=== PATIENT | female | born 1955 | race Caucasian/White ===

== ENCOUNTER 2016-08-11 14:46 | Emergency (ER) | payer MEDICARE, OTHER ==
[2016-08-11] MEDS ORDERED: KETOROLAC 60 MG/2 ML VIAL IM STA (15:38)
[2016-08-11] MEDS ORDERED: KETOROLAC 60 MG/2 ML VIAL ONE (15:46)
== END 2016-08-11 17:39 | disposition home or self-care (01) ==
DX: S29.011A Strain of muscle and tendon of front wall of thorax, initial encounter (principal); X50.0XXA Overexertion from strenuous movement or load, initial encounter; Y93.E6 Activity, residential relocation; Y99.8 Other external cause status; R03.0 Elevated blood-pressure reading, without diagnosis of hypertension; J44.9 Chronic obstructive pulmonary disease, unspecified; F17.200 Nicotine dependence, unspecified, uncomplicated

== ENCOUNTER 2016-09-11 09:15 | Outpatient (CLI) | payer MEDICARE, OTHER | END 2016-09-11 09:16 | disposition home or self-care (01) | DX: G47.33 Obstructive sleep apnea (adult) (pediatric) (principal) | CPT/HCPCS: 99214; G0463 ==

== ENCOUNTER 2017-06-16 16:45 | Observation (INO) | payer MEDICARE, OTHER ==
[2017-06-16] MEDS ORDERED: NITROGLYCERIN SL 0.4 MG TABLET SL STA ×2 (17:00→17:44)
[2017-06-16] MEDS ORDERED: ASPIRIN CHEW 81 MG TABLET PO STA (17:00)
--- NOTE | 2017-06-16 17:02 | ED Physician Documentation ---
PD HPI CHEST PAIN - Stated complaint Stated Complaint: CP - Chief complaint Chief Complaint: General - History obtained from History obtained from: Patient - History of Present Illness Timing - onset: Other (61-year-old woman with history of TIA and tobacco abuse developed substernal chest pressure at rest radiating to both arms about 45 minutes ago associated with diaphoresis and shortness of breath but no nausea. Pain does not radiate to the back.) Review of Systems Constitutional: denies: Fever, Chills Cardiac: reports: Chest pain / pressure. denies: Palpitations, Pedal edema, Calf pain Respiratory: reports: Dyspnea. 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 HEENT: Tonsil/Adenoidectomy - Present Medications Home Medications: Ambulatory Orders Medication Instructions Recorded Confirmed Albuterol Sulfate [Proair 90 mcg IH Q4HR PRN #1 [email or web address] 03/27/16 Respiclick] Ibuprofen 600 mg PO 06/16/17 - Allergies Allergies/Adverse Reactions: Allergies Allergy/AdvReac Type Severity Reaction Status Date / Time acetaminophen [From Vicodin] Allergy Severe Rash Verified 08/11/16 14:50 hydrocodone bitartrate * Allergy Severe Rash Verified 08/11/16 14:50 [From Vicodin] iodine Allergy Severe Nausea Verified 08/11/16 14:50 Penicillins Allergy Severe Respiratory Verified 08/11/16 14:50 Sulfa (Sulfonamide Allergy Severe Respiratory Verified 08/11/16 14:50 Antibiotics) - Social History Does the pt smoke?: Yes Smoking Status: Current every day smoker Does the pt drink ETOH?: No Does the pt have substance abuse?: No - Family History Family history: reports: Non contributory - Immunizations Immunizations are current?: Yes - POLST Patient has POLST: No PD ED PE NORMAL - Vitals Vital signs reviewed: Yes - General General: Alert and oriented X 3, No acute distress - HEENT HEENT: PERRL, EOMI - Neck Neck: Supple, no meningeal sign, No bony TTP - Cardiac Cardiac: RRR, No murmur - Respiratory Respiratory: No respiratory distress, Clear bilaterally - Abdomen Abdomen: Soft, Non tender - Back Back: No CVA TTP, No spinal TTP - Derm Derm: Normal color, Warm and dry - Extremities Extremities: No edema, No calf tenderness / cord - Neuro Neuro: Alert and oriented X 3, Normal speech - Psych Psych: Normal mood, Normal affect Results - Vitals Vitals: Vital Signs - 24 hr 06/16/17 06/16/17 16:57 17:12 Heart Rate 83 88 Respiratory 14 18 Rate Blood Pressure 139/73 H 135/94 H O2 Saturation 93 93 Oxygen O2 Source Room air - EKG (time done) 1657 Rate: Rate (enter#) (82) Rhythm: NSR Malott: Normal Intervals: Normal HI QRS: Normal Ischemia: Non specific changes Computer interpretation: Agree with computer - Labs Labs: Laboratory Tests 06/16/17 06/16/17 06/16/17 17:00 17:00 17:00 WBC 8.7 RBC 5.00 Hgb 15.1 Hct 44.8 MCV 89.6 MCH 30.1 MCHC 33.6 RDW 13.7 Plt Count 447 MPV 8.0 Neut # 4.9 Lymph # 2.7 Cherry # 0.9 Eos # 0.2 Baso # 0.1 Absolute Nucleated RBC 0.00 Nucleated RBC % 0.0 Sodium 139 Potassium 3.5 Chloride 108 Carbon Dioxide 24 Anion Gap 7.0 BUN 15 Creatinine 0.6 Estimated GFR (MDRD) 102 Glucose 100 Calcium 9.3 Total Bilirubin 0.5 AST 20 ALT 24 Alkaline Phosphatase 115 Total Creatine Kinase 63 CK-MB (CK-2) 1.3 Troponin I 0.04 Total Protein 7.4 Albumin 4.2 Globulin 3.2 Albumin/Globulin Ratio 1.3 Lipase 26 PD MEDICAL DECISION MAKING - ED course ED course: 61-year-old woman with risk factors for coronary disease including age, tobacco abuse presents with typical chest pain of short duration but no ischemic EKG changes, initial biomarkers negative. Call to the hospitalist for observation and formal rule out at 5:41 PM. She received aspirin and nitroglycerin in the emergency department. Departure - Departure Disposition: ED Place in Observation Clinical Impression: Chest pain Qualifiers: Chest pain type: unspecified Qualified Code(s): R07.9 - Chest pain, unspecified Condition: Stable
[2017-06-16] MEDS ORDERED: ASPIRIN CHEW 81 MG TABLET ONE (17:09)
[2017-06-16 17:17] LABS: BASOPHILS # (AUTO) 0.1 10^3/uL (0.0-0.1); EOSINOPHILS # (AUTO) 0.2 10^3/uL (0.0-0.7); EOSINOPHILS % (AUTO) 1.7 %; HCT - HEMATOCRIT 44.8 % (37.0-47.0); HGB - HEMOGLOBIN 15.1 g/dL (12.0-16.0); LYMPHOCYTES # (AUTO) 2.7 10^3/uL (1.5-3.5); LYMPHOCYTES % (AUTO) 31.2 %; MEAN CORPUSCULAR HEMOGLOBIN 30.1 pg (27.0-31.0); MEAN CORPUSCULAR HGB CONC 33.6 g/dL (32.0-36.0); MEAN CORPUSCULAR VOLUME 89.6 fL (81.0-99.0); MONOCYTES # (AUTO) 0.9 10^3/uL (0.0-1.0); MONOCYTES % (AUTO) 9.9 %; NEUTROPHILS # (AUTO) 4.9 10^3/uL (1.5-6.6); NEUTROPHILS % (AUTO) 56.2 %; RED CELL DISTRIBUTION WIDTH 13.7 % (12.0-15.0); UNCORRECTED WHITE BLOOD COUNT 8.7 x10^3/uL; WHITE BLOOD COUNT 8.7 x10^3/uL (4.8-10.8)
[2017-06-16 17:28] LABS: ALBUMIN/GLOBULIN RATIO 1.3 (1.0-2.2); BILIRUBIN,TOTAL 0.5 mg/dL (0.2-1.0); CALCIUM 9.3 mg/dL (8.5-10.3); CREATININE 0.6 mg/dL (0.4-1.0); POTASSIUM 3.5 mmol/L (3.5-5.0); TOTAL PROTEIN 7.4 g/dL (6.7-8.2)
[2017-06-16 17:35] LABS: TROPONIN I 0.04 ng/mL (<0.49)
[2017-06-16 17:37] LABS: CREATINE KINASE MB 1.3 ng/mL (0.6-6.3)
[2017-06-16] MEDS ORDERED: ACETAMINOPHEN 325 MG TABLET PO STA (17:44)
[2017-06-16] MEDS ORDERED: SODIUM CHLORIDE FLUSH 0.9% 10 ML SYRINGE IVP PRN (17:47)
[2017-06-16] MEDS ORDERED: ONDANSETRON ODT 4 MG TABLET TL PRN (17:47)
[2017-06-16] MEDS ORDERED: ONDANSETRON 4 MG/2 ML VIAL IVP PRN (17:47)
[2017-06-16] MEDS ORDERED: ACETAMINOPHEN 325 MG TABLET PO PRN (17:47)
--- NOTE | 2017-06-16 17:49 | XRAY Preliminary Report ---
Exam: XR CHEST 1 VIEW IMPRESSION: No acute disease. [facility]IA SITE ID: [id number]
--- NOTE | 2017-06-16 17:52 | XRAY Report ---
EXAM: CHEST RADIOGRAPHY EXAM DATE: 06/16/2017 05:27 PM. CLINICAL HISTORY: Chest pain. COMPARISON: 08/11/2016. TECHNIQUE: 1 view. FINDINGS: Lungs/Pleura: No localized infiltrate, consolidation, effusion, or pneumothorax. Mediastinum: Within exam limitations, the cardiomediastinal contour is normal. Upper lobe vessels not distended. Other: Osteopenia. Degenerative changes. IMPRESSION: No acute disease. [facility] Referring Provider Line: [phone] SITE ID: [id number]
[2017-06-16] MEDS ORDERED: NITROGLYCERIN SL 0.4 MG TABLET SL PRN (17:53)
[2017-06-16] MEDS ORDERED: ALBUTEROL NEB 2.5 MG/3 ML INH STA (17:55)
[2017-06-16] MEDS ORDERED: ACETAMINOPHEN 325 MG TABLET PO ONE (17:58)
[2017-06-16] MEDS ORDERED: ALBUTEROL NEB 2.5 MG/3 ML INH PRN (18:47)
--- NOTE | 2017-06-16 18:54 | HISTORY & PHYSICAL EXAMINATION ---
Chief Complaint - Chief Complaint Chief Complaint: chest pain Chest Pain Admission HPI - Admitted From Admitted from: ED - History Obtained From Records Reviewed: RN notes reviewed, Old records reviewed History obtained from: Patient Exam limitations: No limitations - History of Present Illness Pain/Problem Location Description: chest pain mid-sternal w/radiation to right arm, then left arm. Severity at the worst: reports: Severe Pain Quality: reports: Sharp, Crushing Context-Pain started w/: reports: Inspiration, Other (no provoking factors, riding in the car.) Timing: reports: Abrupt onset Duration: reports: Minutes: (60) Improved with: reports: Nothing Worsened by: reports: Inspiration Associated symptoms: reports: Shortness of air, Diaphoresis, Cough HPI Comment/Other: Evelia Kaye is a 61-year old with a PMX of hypothyroidism, osteoarthritis, GERD , TIA, COPD, CLEMENTE tobacco abuse, chronic sinusitis, and anxiety who was at an appointment with ex- today in [place] and was riding as a passenger in the car when she was suddenly overcome by chest pain in her mid-sternum as if "an elephant was sitting on her chest". The pain soon radiated to her right arm, then left arm and associated symptoms of diaphoresis and SOB, cough. The pain persisted until arriving in our ED. Upon arrival she was given NTG, ASA, EKG and troponin, which have been negative so far. She will be admitted for observation of rule out CA. 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: Hysterectomy Neuro: positive: Other (back abscess in 1998, mid-spinal) HEENT: positive: Tonsil/Adenoidectomy Social & Family Hx - Social History Does the pt smoke?: Yes Smoking Status: Heavy tobacco smoker (reports 4 (four) ppd until 2003, now smokes only a few per day.) Does the pt drink ETOH?: No Does the pt have substance abuse?: No - POLST Patient has POLST: No POLST Status: Full Code - Family History Family History: Mother: Alive and Well, Mental Illness, Father: , CVA/ TIA, Sister: Alive and Well, Diabetes, Type 2 Meds/Allgy - Home Medications Home Medications: Ambulatory Orders Medication Instructions Recorded Confirmed Albuterol Sulfate [Proair 90 mcg IH Q4HR PRN #1 [email or web address] 03/27/16 Respiclick] Ibuprofen 800 mg PO 06/16/17 - Allergies Allergies/Adverse Reactions: Allergies Allergy/AdvReac Type Severity Reaction Status Date / Time hydrocodone bitartrate * Allergy Severe Rash Verified 08/11/16 14:50 [From Vicodin] iodine Allergy Severe Nausea Verified 08/11/16 14:50 Penicillins Allergy Severe Respiratory Verified 08/11/16 14:50 Sulfa (Sulfonamide Allergy Severe Respiratory Verified 08/11/16 14:50 Antibiotics) Review of Systems - Constitutional Constitutional: reports: Diaphoresis - Ears, Nose & Throat Ears, Nose & Throat: reports: Hearing loss (left-chronic) - Respiratory Respiratory: reports: Cough, SOB with exertion - Gastrointestinal Gastrointestinal: reports: Reflux/heartburn - Genitourinary Genitourinary: reports: Dysuria - Musculoskeletal Musculoskeletal: reports: Back pain, Muscle aches - Neurological Neurological: reports: Headache - Psychiatric Psychiatric: reports: Anxiety - Endocrine Endocrine: reports: Polydypsia, Intolerance to heat - All Other Systems All Other Systems: reports: Reviewed and negative Exam - Vital Signs Reviewed Vital Signs: Yes Vital Signs: Vital Signs x48h Temp Pulse Pulse Resp BP BP Pulse Ox 06/16/17 18:42 36.5 C 71 20 121/76 96 06/16/17 17:54 84 20 129/63 94 - Physical Exam General Appearance: positive: No acute distress, Alert Eyes Bilateral: positive: Normal inspection, PERRL ENT: positive: ENT inspection nml, Pharynx nml, No signs of dehydration Neck: positive: Nml inspection, Thyroid nml, No JVD, Trachea midline Respiratory: positive: Chest non-tender, No respiratory distress, Breath sounds nml Cardiovascular: positive: Regular rate & rhythm, No murmur, No gallop Peripheral Pulses: positive: 2+ Abdomen: positive: Non-tender, Nml bowel sounds, Hepatomegaly Back: positive: Nml inspection Skin: positive: Color nml, No rash, Warm, Dry Extremities: positive: Non-tender, Full ROM, Nml appearance, No pedal edema Neurologic/Psychiatric: positive: Oriented x3, CN's nml (2-12), Motor nml, Sensation nml, Mood/affect nml Reflexes: Bicep (R): 4+, Bicep (L): 4+ Results - Lab Results Lab results reviewed: Yes Fish Bones: 06/16/17 17:00 06/16/17 17:00 - Diagnostic Imaging Results Diagnostic Imaging Results: positive: Prelim report reviewed Diagnostic Imaging Results Comments: Chest x-ray: no acute disease. - EKG Results EKG Interpreted Independently: Yes ARRA - Anticipated LOS Anticipated Stay Length: Less than 2 midnights - AMI - Statin at Admit Aspirin Prescribed on Admit: Yes - Stroke - Rehab Assessment Rehab services assessment to be ordered?: No Not Ordered - Medical Reason: Contraindicated - DVT/VTE - Prophylaxis VTE/DVT Device ordered at admit?: Yes VTE/DVT Prophylaxis med ordered at admit?: No Not Ordered - Medical Reason: Not indicated CP/CHF Plan - Echo Plan to order an echo?: Yes - Plan Patient Problems: All Active Problems Chest pain (Acute) Chest wall muscle strain (Acute) Hypoxia (Acute) Sprain of ankle (Acute) Plan: Chest pain (R07.9)- Her last cardiac cath was greater than 10 year ago and at that time, no conclusion was made as to the cause of her chest pain. Plan: Echocardiogram in AM, serial troponins, telemetry monitoring. and further labs. Stress test is pending based on patient compliance since she states she does not want any imaging unless it is an emergencey. History of TIA (transient ischemic attack) (Z86.73)- This is stable. She used to have right sided weakness, but this has resolved with no known residuals. Plan: continue to monitor and encourage statin use. COPD (chronic obstructive pulmonary disease) (J44.9)- Presumed due to long-term tobacco abuse. Plan: continue albuterol nebs as indicated. Monitor VS. CLEMENTE (obstructive sleep apnea) (G47.33)-Patient states that she is compliant with CPAP device at home. Plan: she did not bring her CPAP to the hospital, so we will monitor VS. DVT prophylaxis: SCDs, no further interventions indicated.
[2017-06-16] MEDS ORDERED: GI COCKTAIL 120 ML BOTTLE PO SCH (21:00)
[2017-06-16] MEDS: SODIUM CHLORIDE FLUSH 0.9% 10 ML SYRINGE IVP SCH (22:26)
[2017-06-17] MEDS: SODIUM CHLORIDE FLUSH 0.9% 10 ML SYRINGE IVP SCH ×2 (05:57→14:45)
[2017-06-17] MEDS ORDERED: NICOTINE 14 MG PATCH TOP SCH (08:00)
[2017-06-17] MEDS ORDERED: ASPIRIN EC 81 MG TABLET PO SCH (09:00)
[2017-06-17] MEDS ORDERED: POLYETHYLENE GLYCOL 3350 17 GM PACKET PO SCH (09:00)
[2017-06-17] MEDS ORDERED: REGADENOSON 0.4 MG/5 ML SYRINGE IVP ONE (11:53)
[2017-06-17 16:02] VITALS: BP 142/87
--- NOTE | 2017-06-17 16:31 | Nuclear Medicine Prelim Report ---
Exam: NM MYOCARDIAL PERFUSION STR/RST IMPRESSION: 1. Small reversible distal inferolateral wall perfusion defect. No other convincing fixed or reversib le perfusion defects. 2. Left ventricular ejection fraction of 66%. 3. Normal segmental and global wall motion. 4. Normal left ventricular cavity size, no change with stress. [facility] The call report notification system was initiated by Dr. Jorge Adhikari at 15:56 hrs on 06/17/17. The above findings were discussed with Dr. Doran by Dr. Jorge Adhikari at 16:29 hrs on 06/17/17. SITE ID: [id number]
--- NOTE | 2017-06-17 16:34 | Nuclear Medicine Report ---
EXAM: SINGLE-ISOTOPE PHARMACOLOGICAL STRESS TEST WITH REGADENOSON. SINGLE-ISOTOPE AND one-DAY REST/STRESS M YOCARDIAL PERFUSION SCANS WITH TOMOGRAPHIC IMAGING, QUANTITATIVE ANALYSIS, WALL MOTION ANALYSIS AND C ALCULATION OF EJECTION FRACTION. EXAM DATE: 06/17/2017 02:44 PM. CLINICAL HISTORY: Chest pain radiating to the right arm. COMPARISON: None. TECHNIQUE: After the intravenous administration of 8.7 mCi of Tc-99m sestamibi, a rest myocardial perfusion scan was done with tomography. Motion correction was applied when appropriate. A pharmacological stress was performed with the infusion of 0.4 mg regadenoson per protocol. Accordin g to protocol, 33.6 mCi of Tc-99m sestamibi was injected for stress myocardial perfusion scan. Motion correction was applied when appropriate. Gated tomographic images were obtained for wall motion analysis and computation of left ventricular e jection fraction. FINDINGS: There is a small, moderate severity reversible perfusion defect in the distal inferolateral wall. No other convincing fixed or reversible perfusion defects. Wall motion analysis demonstrates no focal wall motion abnormality The left ventricular end-diastolic volume is 84 cc. The left ventricular end-systolic volume is 29 cc . The left ventricular ejection fraction is calculated to be 66%. IMPRESSION: 1. Small reversible distal inferolateral wall perfusion defect. No other convincing fixed or reversib le perfusion defects. 2. Left ventricular ejection fraction of 66%. 3. Normal segmental and global wall motion. 4. Normal left ventricular cavity size, no change with stress. RAD[facility] The call report notification system was initiated by Dr. Jorge Adhikari at 15:56 hrs on 06/17/17. The above findings were discussed with Dr. Doran by Dr. Jorge Adhikari at 16:29 hrs on 06/17/17. Referring Provider Line: [phone] SITE ID: [id number]
--- NOTE | 2017-06-17 17:08 | Discharge Plan ---
Discharge Plan Disposition: Home, Self Care Condition: Good Prescriptions: Nitroglycerin [Nitrostat] 0.4 mg SL Q5MIN PRN #1 tablet PRN Reason: Chest Pain Aspirin EC [Ecotrin] 325 mg PO DAILY #30 tablet Nicotine 14 mg Patch [Nicoderm] 1 patch TOP DAILY #30 patch Simvastatin 20 mg PO DAILY #30 tablet Diet: Regular Activity Restrictions: No Restrictions Shower Restrictions: No Driving Restrictions: No Weight Bearing: Full Weight Additional Instructions or Follow Up instructions: You were admitted to observe for acute chest pain that radiated to your right arm and then your left arm. Please see PCP by Thursday and the latest Thursday as a follow up to this observation hospital stay. You should see a reservoir engineer in the next few days depending on PCP referral process. Take your newly prescribed nitroglycerin SL tablets for any chest pain. Return to ED if you experience chest pain that is not relieved by nitroglycerin x3. Stop smoking if allowable, use nicotine patch for extra help. Start taking a daily aspirin 325mg and a lipid reducing medication to lessen your chances of further blockage of vessels. It was great working with you! No Smoking: If you smoke, Please STOP! Call for help. Follow-up with: Miguel Angel Rdoriguez MD [Primary Care Provider] -
--- NOTE | 2017-06-17 17:18 | DISCHARGE SUMMARY ---
Discharge Summary Admit Date: 06/16/17 Discharge Date: 06/17/17 Discharging Provider: BURKE Villanueva Primary Care Provider: Miguel Angel Rodriguez Code Status: Attempt Resuscitation Condition at Discharge: Good Discharge Disposition: 01 Home, Self Care - DIAGNOSES Admission Diagnoses: Chest pain, unspecified (R07.9) Personal history of TIA, and cerebral infarction without residual deficits ( Z86.73) Chronic obstructive pulmonary disease, unspecified (J44.9) Obstructive sleep apnea (adult) (pediatric) (G47.33) Discharge Diagnoses with Status of Each Condition: Chest pain (R07.9)- Her last cardiac cath was greater than 10 years ago and at that time, no conclusion was made as to the cause of her chest pain. Echocardiogram was completed and showed no wall motion abnormalities and an EF of 60-65%. Telemetry monitoring-without ectopy, rate or rhythm problems Stress test showed a small reversible distal inferolateral wall perfusion defect , so a (+) test. Troponins remained negative ranging from 0.04-0.08. A TSH was obtained and was normal at 5.32, all other labs grossly normal with not one value being abnormal. Plan: See PCP on Thursday06/22/17 to get a referral to cardiology for further intervention. Patient likely needs a cardiac cath. Nitroglycerin SL prescribed in the mean time. Patient was not hypertensive or tachycardic while here, so did not prescribe anything additional. Suggest ASA and statin for further prevention. History of TIA (transient ischemic attack) (Z86.73)- This is stable. She used to have right sided weakness, but this has resolved with no known residuals. Plan: continue to monitor and encourage statin use, although patient states she will not take any medications. COPD (chronic obstructive pulmonary disease) (J44.9)- Presumed due to long-term tobacco abuse. A chest x-ray was completed on admission and showed no acute disease. Clear lungs on exam. Plan: continue albuterol nebs as indicated. Monitor VS. Encourage cessation. CLEMENTE (obstructive sleep apnea) (G47.33)-Patient states that she is compliant with CPAP device at home. Plan: she did not bring her CPAP to the hospital, so we will monitor VS. DVT prophylaxis: SCDs, no further interventions indicated. - HPI History of Present Illness: Evelia Kaye is a 61-year old with a PMX of hypothyroidism, osteoarthritis, GERD , TIA, COPD, CLEMENTE tobacco abuse, chronic sinusitis, and anxiety who was at an appointment with ex- today in [place] and was riding as a passenger in the car when she was suddenly overcome by chest pain in her mid-sternum as if "an elephant was sitting on her chest". The pain soon radiated to her right arm, then left arm and associated symptoms of diaphoresis and SOB, cough. The pain persisted until arriving in our ED. Upon arrival she was given NTG, ASA, EKG and troponin, which have been negative so far. She will be admitted for observation of rule out AL. - HOSPITAL COURSE Hospital Course: Patient came to the ED after having acute onset mid-sternal chest pain that radiated to her right arm, then left arm. She had no provoking activities prior to then. Once in the ED, she had a (-) troponin, normal EKG, and relief of chest pain with nitroglycerin. A full cardiac work up was completed and patient under went a cardiac stress test with imaging that showed a small reversible distal interolateral wall perfusion defect. She was kept in observation over night and discharged via private car home with follow up guidelines that include prompt referral to Cardiology since she will likely need a cardiac cath. - ALLERGIES Allergies/Adverse Reactions: Allergies Allergy/AdvReac Type Severity Reaction Status Date / Time hydrocodone bitartrate * Allergy Severe Rash Verified 08/11/16 14:50 [From Vicodin] iodine Allergy Severe Nausea Verified 08/11/16 14:50 Penicillins Allergy Severe Respiratory Verified 08/11/16 14:50 Sulfa (Sulfonamide Allergy Severe Respiratory Verified 08/11/16 14:50 Antibiotics) - MEDICATIONS Home Medications: Ambulatory Orders Medication Instructions Recorded Confirmed Ibuprofen 800 mg PO Q6H PRN 06/16/17 06/17/17 Aspirin EC [Ecotrin] 325 mg PO DAILY #30 tablet 06/17/17 Nicotine 14 mg Patch [Nicoderm] 1 patch TOP DAILY #30 patch 06/17/17 Nitroglycerin [Nitrostat] 0.4 mg SL Q5MIN PRN #1 tablet 06/17/17 Simvastatin 20 mg PO DAILY #30 tablet 06/17/17 - PHYSICAL EXAM AT DISCHARGE General Appearance: positive: No acute distress, Alert Eyes Bilateral: positive: Normal inspection, PERRL ENT: positive: ENT inspection nml, Pharynx nml, No signs of dehydration Neck: positive: Nml inspection, Thyroid nml, No JVD, Trachea midline Respiratory: positive: Chest non-tender, No respiratory distress, Breath sounds nml Cardiovascular: positive: Regular rate & rhythm, No murmur, No gallop Peripheral Pulses: positive: 2+ Abdomen: positive: Non-tender, No organomegaly, Nml bowel sounds Back: positive: Nml inspection Skin: positive: Color nml, No rash, Warm, Dry Extremities: positive: Non-tender, Full ROM, Nml appearance, No pedal edema Neurologic/Psychiatric: positive: Oriented x3, CN's nml (2-12), Motor nml, Sensation nml, Mood/affect nml Reflexes: Bicep (R): 4+, Bicep (L): 4+ - LABS Result Diagrams: 06/16/17 17:00 06/16/17 17:00 - DIAGNOSTIC IMAGING Diagnostic Imaging Results: Final report reviewed Diagnostic Imaging Results Comments: Myocardial perfusiion STRESS test with imaging 06/17/17: IMPRESSION: 1. Small reversible distal inferolateral wall perfusion defect. No other convincing fixed or reversible perfusion defects. 2. Left ventricular ejection fraction of 66%. 3. Normal segmental and global wall motion. 4. Normal left ventricular cavity size, no change with stress. A chest x-ray on admission 06/16/17: FINDINGS: Lungs/Pleura: No localized infiltrate, consolidation, effusion, or pneumothorax. Mediastinum: Within exam limitations, the cardiomediastinal contour is normal. Upper lobe vessels not distended. Other: Osteopenia. Degenerative changes. IMPRESSION: No acute disease. Echocardiogram on 06/17/17: LV size normal. LV wall thickness is normal. EF 60- 60%. RV is normal size and function. LA with moderate increase in the LA volume index. There is trace to mild mitral regurgitation. Normal RV systolic pressure <35mmHg. The inferior vena cava is dilated >50% inspiratory callapse which is suggestive of an estimated RAP of 8mmHg. - FOLLOW UP Follow Up: You were admitted to observe for acute chest pain that radiated to your right arm and then your left arm. Please see PCP by Thursday and the latest Thursday as a follow up to this observation hospital stay. You should see a citizen participation specialist in the next few days depending on PCP referral process. Take your newly prescribed nitroglycerin SL tablets for any chest pain. Return to ED if you experience chest pain that is not relieved by nitroglycerin x3. Stop smoking if allowable, use nicotine patch for extra help. Start taking a daily aspirin 325mg and a lipid reducing medication to lessen your chances of further blockage of vessels. - TIME SPENT Time Spent in Discharge (Minutes): 90
== END 2017-06-17 17:32 | disposition home or self-care (01) ==
LOC: ED 16:45 → OBS 17:47
PROVIDERS: ADMIT Nurse Practitioner; ATTEND Nurse Practitioner
DX: R07.9 Chest pain, unspecified (principal); Z86.73 Personal history of transient ischemic attack (TIA), and cerebral infarction without residual deficits; J44.9 Chronic obstructive pulmonary disease, unspecified; G47.33 Obstructive sleep apnea (adult) (pediatric); R94.39 Abnormal result of other cardiovascular function study; K21.9 Gastro-esophageal reflux disease without esophagitis; F41.9 Anxiety disorder, unspecified; F17.210 Nicotine dependence, cigarettes, uncomplicated; Z88.5 Allergy status to narcotic agent; Z88.0 Allergy status to penicillin; Z88.2 Allergy status to sulfonamides; E03.9 Hypothyroidism, unspecified; Z85.41 Personal history of malignant neoplasm of cervix uteri
CPT/HCPCS: 36415; 71010; 78452; 80053; 82550; 82553; 83690; 84443; 84484; 85025; 93005; 93017; 93306; 99284; A9270; A9500; G0378; J2785

== ENCOUNTER 2017-06-22 12:20 | Outpatient (CLI) | payer MEDICARE, OTHER | END 2017-06-22 12:21 | disposition short-term general hospital (02) | LOC: EMS 12:20 | PROVIDERS: ATTEND Surgery | DX: R07.89 Other chest pain (principal) | CPT/HCPCS: A0425; A0427 ==

== ENCOUNTER 2017-06-29 09:43 | Emergency (ER) | payer MEDICARE, OTHER ==
[2017-06-29 11:30] LABS: BASOPHILS # (AUTO) 0.1 10^3/uL (0.0-0.1); EOSINOPHILS # (AUTO) 0.3 10^3/uL (0.0-0.7); EOSINOPHILS % (AUTO) 3.2 %; HCT - HEMATOCRIT 35.7 % (37.0-47.0); HGB - HEMOGLOBIN 12.3 g/dL (12.0-16.0); LYMPHOCYTES # (AUTO) 2.6 10^3/uL (1.5-3.5); LYMPHOCYTES % (AUTO) 25.6 %; MEAN CORPUSCULAR HEMOGLOBIN 30.2 pg (27.0-31.0); MEAN CORPUSCULAR HGB CONC 34.3 g/dL (32.0-36.0); MEAN CORPUSCULAR VOLUME 87.8 fL (81.0-99.0); MEAN PLATELET VOLUME 8.2 fL (7.9-10.8); MONOCYTES # (AUTO) 0.9 10^3/uL (0.0-1.0); MONOCYTES % (AUTO) 8.5 %; NEUTROPHILS # (AUTO) 6.2 10^3/uL (1.5-6.6); NEUTROPHILS % (AUTO) 61.7 %; RED BLOOD COUNT 4.06 10^6/uL (4.20-5.40); RED CELL DISTRIBUTION WIDTH 13.4 % (12.0-15.0); UNCORRECTED WHITE BLOOD COUNT 10.1 x10^3/uL; WHITE BLOOD COUNT 10.1 x10^3/uL (4.8-10.8)
[2017-06-29 11:42] LABS: ALBUMIN/GLOBULIN RATIO 1.5 (1.0-2.2); BILIRUBIN,TOTAL 1.3 mg/dL (0.2-1.0); CALCIUM 8.6 mg/dL (8.5-10.3); CREATININE 0.5 mg/dL (0.4-1.0); POTASSIUM 4.2 mmol/L (3.5-5.0); TOTAL PROTEIN 6.4 g/dL (6.7-8.2)
[2017-06-29] MEDS ORDERED: MORPHINE 10 MG/ML VIAL IVP STA (11:44)
[2017-06-29] MEDS ORDERED: ACETAMINOPHEN 1,000 MG/100 ML 100 ML IV STA (11:54)
--- NOTE | 2017-06-29 11:56 | ED Physician Documentation ---
History of Present Illness - Stated complaint Stated Complaint: LEG PX - Chief complaint Chief Complaint: General - Additonal information Additional information: 62-year-old female presents to the emergency department with pain at her right groin after a vascular access for cardiac stenting. Patient was admitted on 1126 and discharged on 1129. She reports that since going home the bruising of her right thigh has spread and she has had increasing pain. She has not taken any pain medications for this at home. No fevers no numbness or weakness in the leg. 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 HEENT: Chronic sinusitis Psych: None, Anxiety Musculoskeletal: Osteoarthritis - Past Surgical History Past Surgical History: Yes General: Colonoscopy /LOCKSTITCH LINING MAKER: Hysterectomy Cardiovascular: Coronary stent, Angioplasty Neuro: Other HEENT: Tonsil/Adenoidectomy - Present Medications Home Medications: Ambulatory Orders Medication Instructions Recorded Confirmed Aspirin EC [Ecotrin] 325 mg PO DAILY #30 tablet 06/17/17 06/29/17 Nitroglycerin [Nitrostat] 0.4 mg SL Q5MIN PRN #1 tablet 06/17/17 06/29/17 Acetaminophen [Tylenol] 650 mg PO Q6H PRN #30 tab 06/29/17 Atorvastatin Calcium 40 mg PO DAILY 06/29/17 06/29/17 Clopidogrel [Plavix] 75 mg PO DAILY 06/29/17 06/29/17 Lidocaine Patch 5% [Lidoderm Patch] 1 patch TOP DAILY #10 patch 06/29/17 Metoprolol Succinate 25 mg PO BID 06/29/17 06/29/17 traMADol [Ultram] 50 mg PO Q4-6H #9 tablet 06/29/17 - Allergies Allergies/Adverse Reactions: Allergies Allergy/AdvReac Type Severity Reaction Status Date / Time hydrocodone bitartrate * Allergy Severe Rash Verified 08/11/16 14:50 [From Vicodin] iodine Allergy Severe Nausea Verified 08/11/16 14:50 Penicillins Allergy Severe Respiratory Verified 08/11/16 14:50 Sulfa (Sulfonamide Allergy Severe Respiratory Verified 08/11/16 14:50 Antibiotics) - Social History Does the pt smoke?: Yes Smoking Status: Current every day smoker Does the pt drink ETOH?: No Does the pt have substance abuse?: No - Immunizations Immunizations are current?: Yes - POLST Patient has POLST: No POLST Status: Full Code PD ED PE NORMAL - Vitals Vital signs reviewed: Yes - General General: Alert and oriented X 3, No acute distress - HEENT HEENT: PERRL - Neck Neck: Supple, no meningeal sign - Cardiac Cardiac: RRR, No murmur, Other (no bruit or thrill right femoral artery, legs warm and well perfused) - Respiratory Respiratory: Clear bilaterally - Abdomen Abdomen: Normal bowel sounds, Soft, Non tender, Non distended - Derm Derm: Other (right thigh and groin with diffuse eccymosis ) - Extremities Extremities: No deformity - Neuro Neuro: Alert and oriented X 3 - Psych Psych: Normal mood, Normal affect Results - Vitals Vitals: Oxygen O2 Source Room air - Labs Labs: Laboratory Tests 06/29/17 06/29/17 11:23 11:23 WBC 10.1 RBC 4.06 L Hgb 12.3 Hct 35.7 L MCV 87.8 MCH 30.2 MCHC 34.3 RDW 13.4 Plt Count 303 MPV 8.2 Neut # 6.2 Lymph # 2.6 [place] # 0.9 Eos # 0.3 Baso # 0.1 Absolute Nucleated RBC 0.00 Nucleated RBC % 0.0 Sodium 137 Potassium 4.2 Chloride 107 Carbon Dioxide 24 Anion Gap 6.0 BUN 16 Creatinine 0.5 Estimated GFR (MDRD) 125 Glucose 113 H Calcium 8.6 Total Bilirubin 1.3 H AST 22 ALT 35 Alkaline Phosphatase 92 Total Protein 6.4 L Albumin 3.8 Globulin 2.6 Albumin/Globulin Ratio 1.5 - Rads (name of study) right groin US Radiology: Final report received (no pseudoaneurysm, no hematoma, no fistula) PD MEDICAL DECISION MAKING - ED course ED course: 62 year old f with pain of right groin following cardiac catheterization. Patient's leg is well perfused with no signs of ischemia. No Hematoma appreciated, none on US> US with no acute findings. NO signs of infection. Patient's pain improved with tylenol and lidocaine only. Suspect pain from extensive soft tissue bruising still resolving. She will follow up with her director medical science tomorrow. 1310 Patient has had marked improvement in her right leg pain with lidocaine patch. Departure - Departure Disposition: Home, Self Care Clinical Impression: Right groin pain Condition: Good Follow-Up: Miguel Angel Rodriguez MD [Primary Care Provider] - Prescriptions: Acetaminophen [Tylenol] 650 mg PO Q6H PRN #30 tab PRN Reason: Pain Lidocaine Patch 5% [Lidoderm Patch] 1 patch TOP DAILY #10 patch traMADol [Ultram] 50 mg PO Q4-6H #9 tablet Comments: You had an ultrasound performed that did not find any problems with the blood vessels in your groin.Please call your director medical science office tomorrow to let them know that you were seen in the emergency department for pain. If he develops new or worsening symptoms especially numbness or tingling or coldness of your leg he should return to the emergency department. You may still be having pain from your body taking care of the bleeding that you had with your procedure. Do not drink alcohol or drive while on narcotic pain medicine. You may constipated on this medication, take a stool softener such as "Colace" twice a day while you are on it. Also recommend a ocwg-sqm-fmtqzco laxative such as senna or MiraLAX any day that you do not have a bowel movement. If you received narcotic pain medication in the emergency department, do not drive or operate machinery for the next 24 hours. Discharge Date/Time: 06/29/17 17:32
[2017-06-29] MEDS ORDERED: LIDOCAINE PATCH 5% TOP PRN (12:12)
[2017-06-29] MEDS ORDERED: ACETAMINOPHEN 1,000 MG/100 ML 100 ML IV ONE (12:23)
[2017-06-29] MEDS ORDERED: LIDOCAINE PATCH 5% TOP ONE (12:23)
[2017-06-29 15:44] VITALS: BP 94/62
--- NOTE | 2017-06-29 16:29 | Ultrasound Report ---
RIGHT LOWER EXTREMITY ARTERIAL DUPLEX: 06/29/2017 HISTORY: Recent groin access for catheterization, now with discoloration and pain at the access site. TECHNIQUE: Real-time scanning by the folder operator with saved static images reviewed. FINDINGS: At the access site, there is no evidence of an arteriovenous fistula , hematoma, pseudoaneurysm, mass, or adenopathy. Normal flow velocities in the artery and vein are seen. IMPRESSION: NEGATIVE RIGHT GROIN ULTRASOUND. NO FINDINGS OF A PSEUDOANEURYSM OR ARTERIOVENOUS FISTULA ARE IDENTIFIED. JOB #: [id number] EXT JOB #: [id number] MARCOS
== END 2017-06-29 17:32 | disposition home or self-care (01) ==
LOC: ED 09:43
DX: R10.31 Right lower quadrant pain (principal); Z95.5 Presence of coronary angioplasty implant and graft; I10 Essential (primary) hypertension; I20.9 Angina pectoris, unspecified; J44.9 Chronic obstructive pulmonary disease, unspecified; F17.200 Nicotine dependence, unspecified, uncomplicated; Z79.02 Long term (current) use of antithrombotics/antiplatelets; Z79.82 Long term (current) use of aspirin
CPT/HCPCS: 36415; 80053; 85025; 93926; 96365; 99283; 99284; A9270; J0131

== ENCOUNTER 2017-09-15 15:49 | Outpatient (CLI) | payer MEDICARE, OTHER | END 2017-09-15 15:50 | disposition home or self-care (01) | LOC: SC 15:49 | PROVIDERS: ATTEND Nurse Practitioner Family | DX: G47.33 Obstructive sleep apnea (adult) (pediatric) (principal) | CPT/HCPCS: 99214; G0463; 99212 ==

== ENCOUNTER 2017-11-20 13:19 | Outpatient (CLI) | payer MEDICARE, OTHER ==
[2017-11-20] MEDS ORDERED: ALBUTEROL NEB 2.5 MG/3 ML INH ONE (15:00)
== END 2017-11-20 13:20 | disposition home or self-care (01) ==
LOC: RT 13:19
PROVIDERS: ATTEND Family Medicine
DX: J44.9 Chronic obstructive pulmonary disease, unspecified (principal); R06.02 Shortness of breath; I25.2 Old myocardial infarction; E78.5 Hyperlipidemia, unspecified
CPT/HCPCS: 93005; 94060

== ENCOUNTER 2018-04-27 15:59 | Outpatient (CLI) | payer MEDICARE, OTHER | END 2018-04-27 16:00 | disposition home or self-care (01) | LOC: SC 15:59 | PROVIDERS: ATTEND Nurse Practitioner Family | DX: G47.33 Obstructive sleep apnea (adult) (pediatric) (principal) | CPT/HCPCS: 99214; G0463; 99212 ==

== ENCOUNTER 2018-07-15 23:11 | Outpatient (CLI) | payer MEDICARE, OTHER | END 2018-07-15 23:12 | disposition critical access hospital (66) | LOC: EMS 23:11 | PROVIDERS: ATTEND Surgery | DX: R07.9 Chest pain, unspecified (principal) | CPT/HCPCS: A0425; A0427 ==

== ENCOUNTER 2018-07-15 23:30 | Emergency (ER) | payer MEDICARE, OTHER ==
--- NOTE | 2018-07-16 00:11 | ED Physician Documentation ---
PD HPI CHEST PAIN - Stated complaint Stated Complaint: CP - Chief complaint Chief Complaint: Cardiac - History obtained from History obtained from: Patient - History of Present Illness Timing - onset: Enter time (22:00), Today Timing - onset during: Rest Timing - details: Abrupt onset Pain level max: 8 Pain level now: 2 Quality: Tightness Location: Substernal Radiation: Other. No: Jaw, Neck, Back, Abdominal, Left upper extremity, Right upper extremity Improved by: Nitro (given by medics) Worsened by: Other (no exacerbating factors) Associated symptoms: Shortness of air (mild). No: Nausea, Vomiting Similar symptoms before: Diagnosis (NE) - Additional information Additional information: patient was seated, waiting for dinner at a restaurant [place] when she developed chest pain with mild dyspnea. She initially thought it might be GERD but the pain progressed and she started to feel it was similar to CP she experienced last year associated with angina (addressed with stenting of circumflex artery). Given NTG x 1 en route with near-resolution of symptoms. Review of Systems Cardiac: reports: Chest pain / pressure. 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 HEENT: Chronic sinusitis Psych: None, Anxiety Musculoskeletal: Osteoarthritis - Past Surgical History Past Surgical History: Yes General: Colonoscopy /THEATER PROJECTIONIST: Hysterectomy Cardiovascular: Coronary stent, Angioplasty Neuro: Other HEENT: Tonsil/Adenoidectomy - Present Medications Home Medications: Ambulatory Orders Medication Instructions Recorded Confirmed Aspirin EC [Ecotrin] 325 mg PO DAILY #30 tablet 06/17/17 06/29/17 Nitroglycerin [Nitrostat] 0.4 mg SL Q5MIN PRN #1 tablet 06/17/17 06/29/17 Acetaminophen [Tylenol] 650 mg PO Q6H PRN #30 tab 06/29/17 Atorvastatin Calcium 40 mg PO DAILY 06/29/17 06/29/17 Clopidogrel [Plavix] 75 mg PO DAILY 06/29/17 06/29/17 Lidocaine Patch 5% [Lidoderm Patch] 1 patch TOP DAILY #10 patch 06/29/17 Metoprolol Succinate 25 mg PO BID 06/29/17 06/29/17 traMADol [Ultram] 50 mg PO Q4-6H #9 tablet 06/29/17 - Allergies Allergies/Adverse Reactions: Allergies Allergy/AdvReac Type Severity Reaction Status Date / Time hydrocodone bitartrate * Allergy Severe Rash Verified 08/11/16 14:50 [From Vicodin] iodine Allergy Severe Nausea Verified 08/11/16 14:50 Penicillins Allergy Severe Respiratory Verified 08/11/16 14:50 Sulfa (Sulfonamide Allergy Severe Respiratory Verified 08/11/16 14:50 Antibiotics) - Social History Does the pt smoke?: Yes Smoking Status: Current every day smoker Does the pt drink ETOH?: No Does the pt have substance abuse?: No - Immunizations Immunizations are current?: Yes - POLST Patient has POLST: No POLST Status: Full Code PD ED PE NORMAL - Vitals Vital signs reviewed: Yes - General General: Alert and oriented X 3, No acute distress, Well developed/nourished - HEENT HEENT: Moist mucous membranes - Neck Neck: Supple, no meningeal sign - Cardiac Cardiac: RRR, No murmur, No gallop, No rub - Respiratory Respiratory: No respiratory distress, Clear bilaterally - Abdomen Abdomen: Soft, Non tender - Derm Derm: Normal color, Warm and dry - Extremities Extremities: No edema Results - Vitals Vitals: Vital Signs - 24 hr 07/15/18 07/16/18 07/16/18 23:34 00:10 01:46 Temperature 36.1 C L Heart Rate 82 66 66 Respiratory 18 19 16 Rate Blood Pressure 120/80 114/67 125/55 L O2 Saturation 96 95 94 07/16/18 07/16/18 02:55 03:36 Temperature Heart Rate 68 68 Respiratory 18 16 Rate Blood Pressure 115/67 126/84 H O2 Saturation 93 94 Oxygen O2 Source Nasal cannula - EKG (time done) No standard instances Rate: Rate (enter#) (79) Rhythm: NSR [place]: Normal Intervals: Normal [place] QRS: Normal Ischemia: Normal ST segments, T wave inversion (flat T V2, V3, V5, with inverted T V4, V5. Similar to previous (06/16/17 and 11/20/17)) - Labs Labs: Laboratory Tests 07/15/18 07/15/18 07/15/18 23:55 23:55 23:55 WBC 10.0 RBC 4.84 Hgb 14.8 Hct 42.8 MCV 88.4 MCH 30.5 MCHC 34.5 RDW 13.7 Plt Count 428 MPV 8.3 Neut # (Auto) 6.4 Lymph # (Auto) 2.4 [place] # (Auto) 0.8 Eos # (Auto) 0.2 Baso # (Auto) 0.1 Absolute Nucleated RBC 0.01 Nucleated RBC % 0.1 Sodium 142 Potassium 3.8 Chloride 111 Carbon Dioxide 22 Anion Gap 9.0 BUN 16 Creatinine 0.5 Estimated GFR (MDRD) 125 Glucose 129 H Calcium 9.2 Total Bilirubin 0.5 AST 29 ALT 34 Alkaline Phosphatase 132 H Troponin I < 0.04 Total Protein 7.1 Albumin 4.1 Globulin 3.0 Albumin/Globulin Ratio 1.4 Lipase 33 07/16/18 02:40 WBC RBC Hgb Hct MCV MCH MCHC RDW Plt Count MPV Neut # (Auto) Lymph # (Auto) [place] # (Auto) Eos # (Auto) Baso # (Auto) Absolute Nucleated RBC Nucleated RBC % Sodium Potassium Chloride Carbon Dioxide Anion Gap BUN Creatinine Estimated GFR (MDRD) Glucose Calcium Total Bilirubin AST ALT Alkaline Phosphatase Troponin I < 0.04 Total Protein Albumin Globulin Albumin/Globulin Ratio Lipase - Rads (name of study) chest xray Radiology: Prelim report reviewed, See rad report PD MEDICAL DECISION MAKING - ED course Complexity details: reviewed old records, reviewed results, re-evaluated patient, considered differential, d/w patient ED course: No recurrence of symptoms during ED stay. 2 hour repeat TNI remains negative, patient is comfortable with d/c home. I strongly encouraged her to return or call 911 immediately if she feels worse in any way. Departure - Departure Disposition: 01 Home, Self Care Clinical Impression: Chest pain Condition: Good Instructions: ED Chest Pain Atypical Unkn Cause Comments: Follow up with your doctor; call in the morning to arrange for next available appointment. Discharge Date/Time: 07/16/18 03:43
[2018-07-16 00:23] LABS: BASOPHILS # (AUTO) 0.1 10^3/uL (0.0-0.1); EOSINOPHILS # (AUTO) 0.2 10^3/uL (0.0-0.7); HGB - HEMOGLOBIN 14.8 g/dL (12.0-16.0); LYMPHOCYTES # (AUTO) 2.4 10^3/uL (1.5-3.5); LYMPHOCYTES % (AUTO) 24.3 %; MEAN CORPUSCULAR HEMOGLOBIN 30.5 pg (27.0-31.0); MEAN CORPUSCULAR HGB CONC 34.5 g/dL (32.0-36.0); MEAN CORPUSCULAR VOLUME 88.4 fL (81.0-99.0); MEAN PLATELET VOLUME 8.3 fL (7.9-10.8); MONOCYTES # (AUTO) 0.8 10^3/uL (0.0-1.0); MONOCYTES % (AUTO) 8.4 %; NEUTROPHILS # (AUTO) 6.4 10^3/uL (1.5-6.6); NEUTROPHILS % (AUTO) 64.3 %; PLT - PLATELET COUNT 428 10^3/uL (130-450); RED BLOOD COUNT 4.84 10^6/uL (4.20-5.40); RED CELL DISTRIBUTION WIDTH 13.7 % (12.0-15.0)
[2018-07-16 00:46] LABS: ALBUMIN 4.1 g/dL (3.2-5.5); ALBUMIN/GLOBULIN RATIO 1.4 (1.0-2.2); BILIRUBIN,TOTAL 0.5 mg/dL (0.2-1.0); CALCIUM 9.2 mg/dL (8.5-10.3); CREATININE 0.5 mg/dL (0.4-1.0); TOTAL PROTEIN 7.1 g/dL (6.7-8.2)
--- NOTE | 2018-07-16 00:54 | XRAY Report ---
Reason: chest pain Procedure Date: 07/16/2018 Accession Number: [id number] / [id number] Procedure: XR - Chest 2 View X-Ray CPT Code: 84507 FULL RESULT: EXAM: CHEST RADIOGRAPHY EXAM DATE: 07/16/2018 12:45 AM. CLINICAL HISTORY: Chest pain. COMPARISON: CHEST 1 VIEW 06/16/2017 5:16 PM CHEST W/O 02/07/2014 2:09 PM. TECHNIQUE: 2 views. FINDINGS: Lungs/Pleura: Large volumes. No focal pneumonia or overt edema. No pneumothorax or effusion. Mediastinum: Within exam limitations, cardiomediastinal contour is normal. Other: None. IMPRESSION: COPD without acute process seen in the chest. RADIA
[2018-07-16 03:37] VITALS: BP 126/84
== END 2018-07-16 03:43 | disposition home or self-care (01) ==
LOC: EDUNIT# → ED 23:30
DX: R07.9 Chest pain, unspecified (principal); I10 Essential (primary) hypertension; J44.9 Chronic obstructive pulmonary disease, unspecified; F17.200 Nicotine dependence, unspecified, uncomplicated; Z95.5 Presence of coronary angioplasty implant and graft; Z86.79 Personal history of other diseases of the circulatory system; Z79.02 Long term (current) use of antithrombotics/antiplatelets
CPT/HCPCS: 36415; 71046; 80053; 83690; 84484; 85025; 93005; 99283; 99284

== ENCOUNTER 2018-09-14 18:39 | Outpatient (CLI) | payer MEDICARE, OTHER | END 2018-09-14 18:40 | disposition short-term general hospital (02) | LOC: EMS 18:39 | PROVIDERS: ATTEND Surgery | DX: R07.9 Chest pain, unspecified (principal) | CPT/HCPCS: A0425; A0427 ==

== ENCOUNTER 2019-02-08 03:21 | Outpatient (CLI) | payer MEDICARE, OTHER | END 2019-02-08 03:22 | disposition critical access hospital (66) | LOC: EMS 03:21 | PROVIDERS: ATTEND Surgery | DX: R07.89 Other chest pain (principal); R11.0 Nausea | CPT/HCPCS: A0425; A0427; A0999 ==

== ENCOUNTER 2019-02-08 03:24 | Emergency (ER) | payer MEDICARE, OTHER ==
--- NOTE | 2019-02-08 03:36 | ED Physician Documentation ---
PD HPI CHEST PAIN - Stated complaint Stated Complaint: CHEST PAIN - Chief complaint Chief Complaint: Cardiac - History obtained from History obtained from: Patient, EMS - History of Present Illness Timing - onset: Enter time (02:45), Today Timing - onset during: Sleep Timing - details: Abrupt onset Pain level now: 2 Quality: Like prior ACS, Other (heaviness) Location: Substernal Radiation: Other (no radiation) Improved by: Nitro (x 2) Worsened by: Other Associated symptoms: Shortness of air - Additional information Additional information: BIBA for chest heaviness, dyspnea; symptom onset 2:45 AM waking her from sleep. She took 1 dose of SLNTG without relief and called 911. Medics administered 1 dose of SLNTG, zofran IV for subsequent nausea, and 324mg ASA. Review of Systems Constitutional: reports: Reviewed and negative Cardiac: reports: Chest pain / pressure. denies: Palpitations, Pedal edema, Calf pain Respiratory: reports: Dyspnea. denies: Cough, Wheezing GI: reports: Nausea. 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 HEENT: Chronic sinusitis Psych: None, Anxiety Musculoskeletal: Osteoarthritis - Past Surgical History Past Surgical History: Yes General: Colonoscopy /RETREAD BUILDER: Hysterectomy Cardiovascular: Coronary stent, Angioplasty Neuro: Other HEENT: Tonsil/Adenoidectomy - Present Medications Home Medications: Ambulatory Orders Medication Instructions Recorded Confirmed Aspirin EC [Ecotrin] 325 mg PO DAILY #30 tablet 06/17/17 06/29/17 Nitroglycerin [Nitrostat] 0.4 mg SL Q5MIN PRN #1 tablet 06/17/17 06/29/17 Acetaminophen [Tylenol] 650 mg PO Q6H PRN #30 tab 06/29/17 Atorvastatin Calcium 40 mg PO DAILY 06/29/17 06/29/17 Clopidogrel [Plavix] 75 mg PO DAILY 06/29/17 06/29/17 Lidocaine Patch 5% [Lidoderm Patch] 1 patch TOP DAILY #10 patch 06/29/17 Metoprolol Succinate 25 mg PO BID 06/29/17 06/29/17 traMADol [Ultram] 50 mg PO Q4-6H #9 tablet 06/29/17 - Allergies Allergies/Adverse Reactions: Allergies Allergy/AdvReac Type Severity Reaction Status Date / Time hydrocodone bitartrate * Allergy Severe Rash Verified 02/08/19 03:41 [From Vicodin] iodine Allergy Severe Nausea Verified 02/08/19 03:41 Penicillins Allergy Severe Respiratory Verified 02/08/19 03:41 Sulfa (Sulfonamide Allergy Severe Respiratory Verified 02/08/19 03:41 Antibiotics) - Social History Does the pt smoke?: Yes Smoking Status: Current every day smoker Does the pt drink ETOH?: No Does the pt have substance abuse?: No - Immunizations Immunizations are current?: Yes - POLST Patient has POLST: No POLST Status: Full Code PD ED PE NORMAL - Vitals Vital signs reviewed: Yes - General General: Alert and oriented X 3, No acute distress, Well developed/nourished - HEENT HEENT: Moist mucous membranes - Neck Neck: Supple, no meningeal sign - Cardiac Cardiac: RRR, No murmur, No gallop, No rub - Respiratory Respiratory: No respiratory distress, Clear bilaterally - Abdomen Abdomen: Soft, Non tender - Derm Derm: Normal color, Warm and dry - Extremities Extremities: No edema - Neuro Neuro: Alert and oriented X 3 Results - Vitals Vitals: Oxygen O2 Source Nasal cannula Oxygen Flow Rate 3 - EKG (time done) No standard instances Rate: Rate (enter#) (76) Rhythm: NSR [place]: Normal Intervals: Normal [place] QRS: Normal Ischemia: Normal ST segments, Other (inverted/flat T V2-V3) - Labs Labs: Laboratory Tests 02/08/19 02/08/19 02/08/19 03:36 03:36 03:36 WBC 10.9 H RBC 4.50 Hgb 13.3 Hct 40.7 MCV 90.4 MCH 29.6 MCHC 32.7 RDW 13.3 Plt Count 420 MPV 9.9 Neut # (Auto) 7.0 H Lymph # (Auto) 2.8 [place] # (Auto) 0.8 Eos # (Auto) 0.3 Baso # (Auto) 0.1 Absolute Nucleated RBC 0.00 Nucleated RBC % 0.0 Sodium 139 Potassium 3.5 Chloride 104 Carbon Dioxide 23 Anion Gap 12.0 BUN 17 Creatinine 0.5 Estimated GFR (MDRD) 125 Glucose 133 H Calcium 8.7 Total Bilirubin 0.4 AST 22 ALT 36 Alkaline Phosphatase 109 Troponin I < 0.04 Total Protein 6.7 Albumin 3.8 Globulin 2.9 Albumin/Globulin Ratio 1.3 Lipase 31 02/08/19 05:49 WBC RBC Hgb Hct MCV MCH MCHC RDW Plt Count MPV Neut # (Auto) Lymph # (Auto) [place] # (Auto) Eos # (Auto) Baso # (Auto) Absolute Nucleated RBC Nucleated RBC % Sodium Potassium Chloride Carbon Dioxide Anion Gap BUN Creatinine Estimated GFR (MDRD) Glucose Calcium Total Bilirubin AST ALT Alkaline Phosphatase Troponin I < 0.04 Total Protein Albumin Globulin Albumin/Globulin Ratio Lipase - Rads (name of study) chest xray Radiology: Prelim report reviewed, See rad report PD MEDICAL DECISION MAKING - ED course Complexity details: reviewed results, re-evaluated patient, considered differential, d/w patient Departure - Departure Disposition: 01 Home, Self Care Clinical Impression: Chest pain Condition: Good Health Concerns: chest pain Plan of Treatment: follow up with PCP, return if worse Instructions: ED Chest Pain Atypical Unkn Cause Follow-Up: SONIDO HOWARD DO [Primary Care Provider] - Discharge Date/Time: 02/08/19 07:26
[2019-02-08] MEDS ORDERED: ONDANSETRON 4 MG/2 ML VIAL IVP STA (03:42)
[2019-02-08 03:47] LABS: BASOPHILS # (AUTO) 0.1 10^3/uL (0.0-0.1); BASOPHILS % (AUTO) 0.6 %; EOSINOPHILS # (AUTO) 0.3 10^3/uL (0.0-0.7); EOSINOPHILS % (AUTO) 2.5 %; HGB - HEMOGLOBIN 13.3 g/dL (12.0-16.0); LYMPHOCYTES # (AUTO) 2.8 10^3/uL (1.5-3.5); MEAN CORPUSCULAR HEMOGLOBIN 29.6 pg (27.0-31.0); MEAN CORPUSCULAR HGB CONC 32.7 g/dL (32.0-36.0); MEAN CORPUSCULAR VOLUME 90.4 fL (81.0-99.0); MEAN PLATELET VOLUME 9.9 fL (7.9-10.8); MONOCYTES # (AUTO) 0.8 10^3/uL (0.0-1.0); NEUTROPHILS % (AUTO) 63.6 %; PLT - PLATELET COUNT 420 10^3/uL (130-450); RED CELL DISTRIBUTION WIDTH 13.3 % (12.0-15.0); WHITE BLOOD COUNT 10.9 x10^3/uL (4.8-10.8)
[2019-02-08 03:58] LABS: ALBUMIN 3.8 g/dL (3.2-5.5); ALBUMIN/GLOBULIN RATIO 1.3 (1.0-2.2); BILIRUBIN,TOTAL 0.4 mg/dL (0.2-1.0); CALCIUM 8.7 mg/dL (8.5-10.3); CREATININE 0.5 mg/dL (0.4-1.0); TOTAL PROTEIN 6.7 g/dL (6.7-8.2)
--- NOTE | 2019-02-08 04:25 | XRAY Report ---
Reason: chest pain, dyspnea Procedure Date: 02/08/2019 Accession Number: [id number] / [id number] Procedure: XR - Chest 2 View X-Ray CPT Code: 54769 FULL RESULT: EXAM: CHEST RADIOGRAPHY EXAM DATE: 02/08/2019 03:56 AM. CLINICAL HISTORY: Dyspnea and chest pain. COMPARISON: CHEST 2 VIEW 07/16/2018 12:38 AM, O XR CHEST 2 VIEW - PA, LAT 01/28/2019 3:30 PM, CHEST 1 VIEW 06/16/2017 5:16 PM. TECHNIQUE: 2 views. FINDINGS: Lungs/Pleura: Nonspecific small streaky left basilar airspace disease. Blunting of the lateral costophrenic sulci seen bilaterally. There is no definite pneumothorax demonstrated. Mediastinum: Cardiac silhouette is within normal limits when accounting for lung volumes and technique. Other: No evident acute displaced fracture. IMPRESSION: 1. Blunting of the lateral costophrenic sulci bilaterally may be from effusion versus pleural thickening/scarring. 2. Small left basilar airspace disease is noted, which may be atelectasis. Aspiration or infection difficult to exclude. RADIA
[2019-02-08] MEDS ORDERED: SODIUM CHLORIDE 0.9% 500 ML IV STA (04:53)
[2019-02-08 06:58] VITALS: BP 97/51
== END 2019-02-08 07:26 | disposition home or self-care (01) ==
LOC: EDUNIT# → ED 03:24
DX: R07.9 Chest pain, unspecified (principal); I10 Essential (primary) hypertension; F17.200 Nicotine dependence, unspecified, uncomplicated
CPT/HCPCS: 36415; 71046; 80053; 83690; 84484; 85025; 93005; 96361; 96374; 99284

== ENCOUNTER 2019-05-26 13:16 | Outpatient (CLI) | payer MEDICARE, OTHER ==
[2019-05-26 14:12] VITALS: BP 104/60
--- NOTE | 2019-05-26 14:12 | SLEEP CARE CONSULTATION ---
Information from patient questionnaire entered by Madeline Rome. I have reviewed and concur with the information entered by Madeline Rome. This document represents the service I personally performed and the decisions made by me, Natalia Herrera, RN, MSN, P[employer]ER COATING SUPERVISOR. History of Present Illness Previous diagnosis: Mild, Obstructive Sleep Apnea-Hypopnea Syndrome AHI: 14.9 Reason for CPAP/BiPAP follow up: annual Equipment type: CPAP Equipment obtained from: [facility] Mask style: Nasal Mask brand: Respironics CPAP Compliance Data - Data Reviewed with Patient Average duration of nightly device use: 7.05 Compliance rate %: 96.1 (180 days) Current pressure setting (cmH2O): 15 Humidity settin Heated hose settin Average residual AHI: 1.3 Average large leak: 5 min 39 sec Subjective Patient concerns: reports: mask leak noise (when changes position ), nasal congestion, dry mouth, nose, throat (intermittent worse in the summer), other (mask disloding in sleep 3-4 times a night ). denies: aerophagia, mask discomfort, air blowing in eyes, condensation in mask/hose, epistaxis Observed to snore while using device: Yes (noted by travel friend ) Current pressure setting perceived as: comfortable On therapy, patient: reports: sleeping better, awakening more refreshed, being more awake and alert during the day, more rested overall. denies: drowsiness while driving Initial [place] Sleepiness Scale score: 9 Current [place] Sleepiness Scale score: 8 Allergies and Home Medications Known drug allergies: Yes Home medication list reviewed: Yes Allergy and home medication list: Aspirin 81mg po daily Plavix 75mg po daily Metoprolol 25mg po bid Atorvastatin 80mg 1 tab daily Nitroglycerin 0.4mg 1 tab po PRN Pantoprazole 40mg 1 tab po BID Prednisone 20mg 1 tab po daily Singular 10mg 1 tab po daily APAP 325mg 2 tab po BID Spriva handihaler Inhale 1 puff BID Ventolin HFA 108mcg 2 puffs PRN Tramodol 50mg 1 tab po daily Nasacort 55mcg 2 sprays in nasal BID Guaifenesin/codeine 100/10 mg 10mls po 4-6hr PRN cough Nebulizer prn Cyclobenziprene 10mg prn Review of Systems Review of systems same as previous: No ( 2nd SC 09/14 medications modified ) Physical Exam Blood Pressure: 104/60 Cuff size: long Heart Rate: 68 O2 Saturation: 95 Height: 5 ft 4 in Weight: 210 lb 6.4 oz Body Mass Index: 36.1 BMI Classification: Obesity Class 2 Impression and Plan 1. Obstructive Sleep Apnea-Hypopnea Syndrome, mild, with good treatment compliance and good apnea control. On CPAP therapy, the patient has better sleep quality and is more rested overall. To prevent mask dislodging, I will order a headgear attachment just came out. She is to notify me if unable to obtain. Since her device is making louder noise, she is to have it checked for malfunction, repair or replace. She obtained her device on 06/25/2015. For oral dryness, she can increase humidity to 3, the maximum. For snoring, I will increase her CPAP pressure to [id number]. She has gained some weight and is trying to lose. I reviewed how significant weight gain or loss will affect her apnea risk and CPAP pressure. Symptoms to report to adjust pressure discussed. Patient's apnea severity and rationale for treatment to reduce apnea, improve sleep quality and reduce cardiovascular and cerebrovascular events was reviewed. I also reviewed the benefit of consistent device use of CPAP for hypertension, cardiac disease, gastric reflux, . If unable to use CPAP, she is advised to avoid supine sleep as her apnea is more severe supine. * * Change CPAP pressure to16 cmH2O * Adjust humidity * headgear attachment * Notify me if snoring with mask or feeling that the pressure is too much or too little * Attempt to lose weight * Return for follow up in 1 year , or sooner if concerns arise I spent 100% of this 30 minute visit face to face with the patient with greater than 50% of this was spent time counseling the patient and coordination of care.
== END 2019-05-26 13:17 | disposition home or self-care (01) ==
LOC: SC 13:16
PROVIDERS: ATTEND Nurse Practitioner Family
DX: G47.33 Obstructive sleep apnea (adult) (pediatric) (principal); E66.9 Obesity, unspecified; Z68.36 Body mass index [BMI] 36.0-36.9, adult
CPT/HCPCS: 99212; 99214

== ENCOUNTER 2019-06-20 12:35 | Emergency (ER) | payer MEDICARE, OTHER ==
--- NOTE | 2019-06-20 12:44 | ED Physician Documentation ---
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 : None HEENT: Chronic sinusitis Psych: None, Anxiety Musculoskeletal: Osteoarthritis - Past Surgical History Past Surgical History: Yes General: Colonoscopy /NURSING PROGRAM COORDINATOR: Hysterectomy Cardiovascular: Coronary stent, Angioplasty Neuro: Other HEENT: Tonsil/Adenoidectomy - Present Medications Home Medications: Ambulatory Orders Medication Instructions Recorded Confirmed Aspirin EC [Ecotrin] 325 mg PO DAILY #30 tablet 06/17/17 06/29/17 Nitroglycerin [Nitrostat] 0.4 mg SL Q5MIN PRN #1 tablet 06/17/17 06/29/17 Acetaminophen [Tylenol] 650 mg PO Q6H PRN #30 tab 06/29/17 Atorvastatin Calcium 40 mg PO DAILY 06/29/17 06/29/17 Clopidogrel [Plavix] 75 mg PO DAILY 06/29/17 06/29/17 Lidocaine Patch 5% [Lidoderm Patch] 1 patch TOP DAILY #10 patch 06/29/17 Metoprolol Succinate 25 mg PO BID 06/29/17 06/29/17 traMADol [Ultram] 50 mg PO Q4-6H #9 tablet 06/29/17 Ciprofloxacin HCl [Cipro] 500 mg PO BID #20 tablet 06/20/19 - Allergies Allergies/Adverse Reactions: Allergies Allergy/AdvReac Type Severity Reaction Status Date / Time hydrocodone bitartrate * Allergy Severe Rash Verified 06/20/19 12:45 [From Vicodin] iodine Allergy Severe Nausea Verified 06/20/19 12:45 Penicillins Allergy Severe Respiratory Verified 06/20/19 12:45 Sulfa (Sulfonamide Allergy Severe Respiratory Verified 06/20/19 12:45 Antibiotics) - Social History Does the pt smoke?: Yes Smoking Status: Current every day smoker Does the pt drink ETOH?: No Does the pt have substance abuse?: No - Immunizations Immunizations are current?: Yes - POLST Patient has POLST: No POLST Status: Full Code Departure - Departure Disposition: 01 Home, Self Care Clinical Impression: BOM (bilateral otitis media) Qualifiers: Otitis media type: suppurative Chronicity: acute Recurrence: recurrent Spontaneous tympanic membrane rupture: without spontaneous rupture Qualified Code(s): H66.006 - Acute suppurative otitis media without spontaneous rupture of ear drum, recurrent, bilateral Condition: Good Instructions: ED Otitis Media Acute Adult Prescriptions: Ciprofloxacin HCl [Cipro] 500 mg PO BID #20 tablet Comments: Follow-up with your doctor as scheduled. Return for new or worsening symptoms. <Rodrigo Aguilar - Last Filed: 06/20/19 12:51> History of Present Illness - History obtained from History obtained from: Patient (63-year-old woman with recurrent otitis media, allergic to penicillin and sulfa both with anaphylaxis. She got a viral URI about 4 weeks ago and then developed left ear pain a few weeks ago and was diagnosed with an ear infection on the left by her PCP. Given a Z-Leonel. Now with bilateral ear pressure especially on the right. She has chronically decreased hearing on the left from a prior otitis. No fevers. She has a runny nose. She has a cough but is improving.) Review of Systems Constitutional: denies: Fever, Chills Ears: reports: Loss of hearing, Ear pain. denies: Drainage/discharge Nose: reports: Rhinorrhea / runny nose Throat: denies: Sore throat PD ED PE NORMAL - Vitals Vital signs reviewed: Yes - General General: Alert and oriented X 3, No acute distress - HEENT HEENT: Pharynx benign, Other (Mild to moderate right otitis media and severe left otitis media) - Neck Neck: Supple, no meningeal sign, No bony TTP - Neuro Neuro: Alert and oriented X 3, Normal speech Results - Vitals Vitals: Vital Signs - 24 hr 06/20/19 12:41 Temperature 36.4 C L Heart Rate 86 Respiratory 16 Rate Blood Pressure 146/123 H O2 Saturation 94 Oxygen O2 Source Room air PD MEDICAL DECISION MAKING - ED course ED course: Antibiotic choice is somewhat difficult because she has failed a Z-Leonel, and she has anaphylaxis to penicillins and sulfa. Departure - Departure Record reviewed to determine appropriate education?: Yes
[2019-06-20 12:45] VITALS: BP 146/123
== END 2019-06-20 12:58 | disposition home or self-care (01) ==
LOC: ED 12:35
DX: H66.006 Acute suppurative otitis media without spontaneous rupture of ear drum, recurrent, bilateral (principal); I10 Essential (primary) hypertension; F17.200 Nicotine dependence, unspecified, uncomplicated
CPT/HCPCS: 99282; 99283

== ENCOUNTER 2019-09-10 18:32 | Emergency (ER) | payer MEDICARE, OTHER ==
[2019-09-10] MEDS ORDERED: TRANEXAMIC ACID 1,000 MG/10 ML VIAL NAS STA (18:56)
--- NOTE | 2019-09-10 18:58 | ED Physician Documentation ---
History of Present Illness - Stated complaint Stated Complaint: TONGUE BLEEDING - Chief complaint Chief Complaint: Laceration - History obtained from History obtained from: Patient - History of Present Illness Timing: Today Pain level max: 0 Pain level now: 0 - Additonal information Additional information: states eating ribs today and her tongue started to bleed. she takes plavix. has continued to bleed at home Nothing makes it better or worse. 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 HEENT: Chronic sinusitis Psych: None, Anxiety Musculoskeletal: Osteoarthritis - Past Surgical History Past Surgical History: Yes General: Colonoscopy /ASSISTANT PROFESSOR OF PHYSICS: Hysterectomy Cardiovascular: Coronary stent, Angioplasty Neuro: Other HEENT: Tonsil/Adenoidectomy - Present Medications Home Medications: Ambulatory Orders Medication Instructions Recorded Confirmed Aspirin EC [Ecotrin] 325 mg PO DAILY #30 tablet 06/17/17 09/10/19 Nitroglycerin [Nitrostat] 0.4 mg SL Q5MIN PRN #1 tablet 06/17/17 09/10/19 Acetaminophen [Tylenol] 650 mg PO Q6H PRN #30 tab 06/29/17 09/10/19 Atorvastatin Calcium 40 mg PO DAILY 06/29/17 09/10/19 Clopidogrel [Plavix] 75 mg PO DAILY 06/29/17 09/10/19 Lidocaine Patch 5% [Lidoderm Patch] 1 patch TOP DAILY #10 patch 06/29/17 09/10/19 Metoprolol Succinate 25 mg PO BID 06/29/17 09/10/19 traMADol [Ultram] 50 mg PO Q4-6H #9 tablet 06/29/17 09/10/19 - Allergies Allergies/Adverse Reactions: Allergies Allergy/AdvReac Type Severity Reaction Status Date / Time hydrocodone bitartrate * Allergy Severe Rash Verified 09/10/19 19:14 [From Vicodin] iodine Allergy Severe Nausea Verified 09/10/19 19:14 Penicillins Allergy Severe Respiratory Verified 09/10/19 19:14 Sulfa (Sulfonamide Allergy Severe Respiratory Verified 09/10/19 19:14 Antibiotics) bee venom protein (honey bee) Allergy Respiratory Verified 09/10/19 19:14 - Social History Does the pt smoke?: Yes Smoking Status: Current every day smoker Does the pt drink ETOH?: No Does the pt have substance abuse?: No - Immunizations Immunizations are current?: Yes - POLST Patient has POLST: No POLST Status: Full Code PD ED PE NORMAL - Vitals Vital signs reviewed: Yes - General General: Alert and oriented X 3, No acute distress - HEENT HEENT: Moist mucous membranes, Other (Small oozing abrasion to the middle of the tongue. Not through and through. No flap. No avulsionSmall oozing abrasion to the middle of the tongue. Not through and through. No flap. No avulsion) - Neck Neck: Supple, no meningeal sign - Cardiac Cardiac: RRR - Respiratory Respiratory: No respiratory distress, Clear bilaterally - Derm Derm: Warm and dry - Neuro Neuro: Alert and oriented X 3 - Psych Psych: Normal mood, Normal affect Results - Vitals Vitals: Vital Signs - 24 hr 09/10/19 09/10/19 18:41 20:17 Temperature 36.5 C Heart Rate 78 78 Respiratory 16 18 Rate Blood Pressure 143/51 H 100/62 O2 Saturation 95 95 Oxygen O2 Source Room air PD MEDICAL DECISION MAKING - ED course Complexity details: considered differential, d/w patient ED course: Tranexamic acid was applied to gauze and pressure was held over the site for approximately 20 minutes. Bleeding resolved. She was observed for approximately 30 minutes after this with no recurrence. Patient counseled regarding signs and symptoms for which I believe and urgent re-evaluation would be necessary. Patient with good understanding of and agreement to plan and is comfortable going home at this time This document was made in part using voice recognition software. While efforts are made to proofread this document, sound alike and grammatical errors may occur. Departure - Departure Disposition: 01 Home, Self Care Clinical Impression: Anticoagulant long-term use Tongue laceration Qualifiers: Encounter type: initial encounter Qualified Code(s): S01.512A - Laceration without foreign body of oral cavity, initial encounter Condition: Good Instructions: ED Laceration All Follow-Up: SONIDO HOWARD DO [Primary Care Provider] - Within 3 Days Comments: Return if you worsen. the bleeding appears to have stopped tonight. Discharge Date/Time: 09/10/19 20:17
[2019-09-10 20:17] VITALS: BP 100/62
== END 2019-09-10 20:17 | disposition home or self-care (01) ==
LOC: ED 18:32
DX: S01.512A Laceration without foreign body of oral cavity, initial encounter (principal); W26.8XXA Contact with other sharp object(s), not elsewhere classified, initial encounter; Y93.89 Activity, other specified; Z79.01 Long term (current) use of anticoagulants; I10 Essential (primary) hypertension; F17.200 Nicotine dependence, unspecified, uncomplicated
CPT/HCPCS: 99282; 99284

== ENCOUNTER 2020-03-09 08:58 | Outpatient (CLI) | payer MEDICARE, OTHER ==
--- NOTE | 2020-03-12 11:40 | Mammography Report ---
BILATERAL DIGITAL SCREENING MAMMOGRAM 3D/2D: 03/09/2020 New baseline exam. No prior exams were available for comparison. There are scattered fibroglandular elements in both breasts. There is a benign lymph node in the left breast. No significant masses, calcifications, or other findings are seen in either breast. IMPRESSION: BENIGN There is no mammographic evidence of malignancy. A 1 year screening mammogram is recommended. This exam was interpreted at Station ID: [id number]. NOTE: For mammograms, a report in lay terms will be sent to the patient. Approximately 15% of breast malignancies will not be visualized mammographically. In the management of a palpable breast mass, a negative mammogram must not discourage biopsy of a clinically suspicious lesion. Electronically Signed By: Ez Diez M.D. slc/:03/09/2020 10:56:27 ACR BI-RADS Category 2: Benign Finding(s) 3342F PARENCHYMAL PATTERN: (A) - The breast(s) demonstrate(s) scattered fibroglandular densities. BI-RADS CATEGORY: (2) - 2 RECOMMENDATION: (ANNUAL) - Recommend routine annual screening mammography. [id number] 1 year screening LATERALITY: (B)
== END 2020-03-09 08:59 | disposition home or self-care (01) ==
LOC: DI 08:58
DX: Z12.31 Encounter for screening mammogram for malignant neoplasm of breast (principal)
CPT/HCPCS: 77063; 77067

== ENCOUNTER 2020-05-02 10:51 | Outpatient (CLI) | payer MEDICARE, OTHER ==
--- NOTE | 2020-05-02 11:28 | SLEEP CARE CONSULTATION ---
Information from patient questionnaire entered by Madeline Rome. I have reviewed and concur with the information entered by Madeline Rome. This document represents the service I personally performed and the decisions made by , Yuliana Shipman ARNP. History of Present Illness Service Date and Time: 05/02/2020 1051 Previous diagnosis: Mild, Obstructive Sleep Apnea-Hypopnea Syndrome AHI: 14.9 (in 2009) Reason for follow up: annual (last seen 2019) Equipment type: CPAP Equipment obtained from: [facility] (getting supplies as needed) Mask style: Nasal Mask brand: Respironics Backup mask available: Yes (old mask) Last cushion change: 1 week ago Prior sleep studies: Yes Year and Where: 2009 - [facility] Sleep Type of Sleep Study: Polysomnography HPI additional information: ROMEO DAVILA was diagnosed to have mild, AHI 14.9, obstructive sleep apnea- hypopnea syndrome and returned today for CPAP therapy annual follow-up. CPAP Compliance Data - Data Reviewed with Patient Average duration of nightly device use: 6.25 Compliance rate %: 96.1 (180 days) Current pressure setting (cmH2O): 16 Humidity settin Heated hose settin Average residual AHI: 1.4 Average large leak: 28 sec Subjective Patient concerns: reports: nasal congestion (has bad allergies), dry mouth, nose, throat, other (snore while using device). denies: aerophagia, mask discomfort, air blowing in eyes, mask leak noise, condensation in mask/hose, epistaxis Observed to snore while using device: Yes Current pressure setting perceived as: too low On therapy, patient: reports: sleeping better, awakening more refreshed, being more awake and alert during the day, more rested overall. denies: drowsiness while driving Initial [place] Sleepiness Scale score: 9 (in 2009) Current [place] Sleepiness Scale score: 9 Allergies and Home Medications Drug allergies reviewed: Yes (sulfa, PCN, vicodin, Iodine based dyes) Home medication list reviewed: Yes (new meds for heart since heart attack) Allergy and home medication list: pseudoephedrine 30 mg, 2 every 6 hours loratidine 10 mg, 1 tab as needed metoprolol tartrate 25 mg, 1 tab 2x day synthroid 75mg, 1 daily vitamins, 1 per day pantoprazole EC 40 mg, 1 daily clopidogrel 75 mg, 1 daily montelukast 10 mg 1 per night ergocalciferol [id number] inti, 1 per week aspirin EC 81 mg, daily cyclobenzaprine 10 mg as needed atorvastatin 80 mg 1 nightly ProAir 90 mcg/inh as needed albuterol-ipratropium 2.5-0.5 mg/3 ml, 4 x a day Review of Systems Review of systems same as previous: No (circumflex stent after [place] in August) Physical Exam Heart Rate: 71 O2 Saturation: 96 Height: 5 ft 4 in Weight: 215 lb Body Mass Index: 36.8 BMI Classification: Obese Impression and Plan 1. Obstructive Sleep Apnea-Hypopnea Syndrome, mild, with good treatment compliance and good apnea control. On CPAP therapy, the patient has better sleep quality and is more rested overall. Patient has had some issues with nasal congestion but feels it is more due to the smoke in the air and her allergies. She is using saline spray, Neti pot and taking her allergy medication. Nasal congestion can be reduced with increasing the CPAP humidity as shown on sample device. The heated hose can be adjusted higher if condensation with higher humidity setting. She is using a nasal cushion mask and really loves it but is developing some mouth dryness. She would like to get a chin strap to help keep her mouth closed. She has had some increase in her snoring when using the CPAP machine as well. I will increase her CPAP pressure to 17 cm H2O and will have her follow up in 1-2 months to re-evaluate. Patient also aware that oral dryness can be reduced by adjusting humidity setting higher or heated hose lower or by adjusting both settings. Patient's apnea severity and rationale for treatment to reduce apnea, improve sleep quality and reduce cardiovascular and cere brovascular events was reviewed. I also reviewed the benefit of consistent device use of CPAP for hypertension, cardiac disease, and gastric reflux. * Change auto CPAP pressure to 17 cmH2O * Notify me if snoring with mask or feeling that the pressure is too much or too little * Attempt to lose weight * Call this office if any problems using CPAP * Return for follow up in 1-2 months, or sooner if concerns arise Counseling Topics: Spare mask, Weight loss health impact Visit Type: In Office Time Spent with Patient (minutes): 20 Provider Statement: I spent 100% of the Face to Face Visit with the patient with greater than 50% spent counseling the patient and coordination of care.
== END 2020-05-02 10:52 | disposition home or self-care (01) ==
LOC: SC 10:51
PROVIDERS: ATTEND Nurse Practitioner Family
DX: G47.33 Obstructive sleep apnea (adult) (pediatric) (principal); E66.9 Obesity, unspecified; Z68.36 Body mass index [BMI] 36.0-36.9, adult
CPT/HCPCS: 99212; G0463

== ENCOUNTER 2020-06-18 08:59 | Outpatient (CLI) | payer MEDICARE, OTHER ==
--- NOTE | 2020-06-18 09:20 | SLEEP CARE CONSULTATION ---
Information from patient questionnaire entered by Madeline Rome. I have reviewed and concur with the information entered by Madeline Rome. This document represents the service I personally performed and the decisions made by , Yuliana Shipman ARNP. History of Present Illness Service Date and Time: 06/18/2020 0859 Previous diagnosis: Mild, Obstructive Sleep Apnea-Hypopnea Syndrome AHI: 14.9 (in 2009) Reason for follow up: other (6 week with pressure change) Equipment type: CPAP Equipment obtained from: [facility] (getting supplies as needed) Mask style: Nasal Backup mask available: Yes (old mask) Last cushion change: 2 weeks ago Prior sleep studies: Yes Year and Where: 2009 - [facility] Sleep Type of Sleep Study: Polysomnography HPI additional information: ROMEO DAVILA was diagnosed to have mild, AHI 14.9, obstructive sleep apnea- hypopnea syndrome and returned today for CPAP therapy 6 week pressure change follow-up. CPAP Compliance Data - Data Reviewed with Patient Average duration of nightly device use: 6 hr 55 min Compliance rate %: 83.3 Current pressure setting (cmH2O): 17 Humidity settin Heated hose settin Average residual AHI: 1.9 Average large leak: 1 min 4 sec Subjective Patient concerns: reports: other (thick gelatinous drainage from sinuses in the mornings, in strings). denies: aerophagia, mask discomfort, air blowing in eyes, mask leak noise, condensation in mask/hose, nasal congestion, dry mouth, nose, throat, epistaxis Observed to snore while using device: No Current pressure setting perceived as: comfortable On therapy, patient: reports: sleeping better, awakening more refreshed, being more awake and alert during the day, more rested overall. denies: drowsiness while driving Initial [place] Sleepiness Scale score: 9 (in 2009) Current [place] Sleepiness Scale score: 10 Allergies and Home Medications Drug allergies reviewed: Yes (see list in chart) Home medication list reviewed: Yes (no changes) Review of Systems Review of systems same as previous: Yes (no changes) Physical Exam Heart Rate: 70 O2 Saturation: 98 Height: 5 ft 4 in Weight: 204 lb Body Mass Index: 35.0 BMI Classification: Obese Impression and Plan 1. Obstructive Sleep Apnea-Hypopnea Syndrome, mild, with good treatment compliance and good apnea control. On CPAP therapy, the patient has better sleep quality and is more rested overall. The patients CPAP is over 5 years old and of reasonable use. Thus, the CPAP will be updated. A DWO prescription will be made. Compliance guidelines for new device and follow up discussed. Patient's apnea severity and rationale for treatment to reduce apnea, improve sleep quality and reduce cardiovascular and cerebrovascular events was reviewed. I also reviewed the benefit of consistent device use of CPAP for hypertension, cardiac disease and gastric reflux. * Continue auto CPAP pressure at 17 cmH2O * Update machine * Notify me if snoring with mask or feeling that the pressure is too much or too little * Attempt to lose weight * Call this office if any problems using CPAP * Return for follow up in 1-2 months, or sooner if concerns arise Counseling Topics: Spare mask, Weight loss health impact Visit Type: In Office Time Spent with Patient (minutes): 18 Provider Statement: I spent 100% of the Face to Face Visit with the patient with greater than 50% spent counseling the patient and coordination of care.
== END 2020-06-18 09:00 | disposition home or self-care (01) ==
LOC: SC 08:59
PROVIDERS: ATTEND Nurse Practitioner Family
DX: G47.33 Obstructive sleep apnea (adult) (pediatric) (principal); E66.9 Obesity, unspecified; Z68.35 Body mass index [BMI] 35.0-35.9, adult
CPT/HCPCS: 99213; G0463; 99212

== ENCOUNTER 2020-08-07 07:52 | Outpatient (CLI) | payer MEDICARE, OTHER ==
--- NOTE | 2020-08-07 08:36 | SLEEP CARE CONSULTATION ---
Information from patient questionnaire entered by Madeline Rome. I have reviewed and concur with the information entered by Madeline Rome. This document represents the service I personally performed and the decisions made by , Yuliana Shipman ARNP. History of Present Illness Service Date and Time: 08/07/2020 0752 Previous diagnosis: Mild, Obstructive Sleep Apnea-Hypopnea Syndrome AHI: 14.9 (in 2009) Reason for follow up: first compliance after device update Equipment type: CPAP Equipment obtained from: [facility] (getting supplies as needed) Mask style: Nasal Backup mask available: Yes Last cushion change: 4 days ago Prior sleep studies: Yes Year and Where: 2009 - [facility] Sleep Type of Sleep Study: Polysomnography HPI additional information: ROMEO DAVILA was diagnosed to have mild, AHI 14.9, obstructive sleep apnea- hypopnea syndrome and returned today [with spouse ][with partner ]for [CPAP][BIPAP] therapy [first compliance after updating device] follow-up. CPAP Compliance Data - Data Reviewed with Patient Average duration of nightly device use: 5 hr 34 min Compliance rate %: 80 Current pressure setting (cmH2O): 17 Humidity settin Heated hose settin Average residual AHI: 2.1 Central apnea: 0.1 Obstructive apnea: 0.4 Average large leak: 41 min 17 sec Subjective Patient concerns: reports: nasal congestion (usually 1st thing in the morning; no problem when using the machine), dry mouth, nose, throat (mouth dryness). denies: aerophagia, mask discomfort, air blowing in eyes, mask leak noise, condensation in mask/hose, epistaxis, other Observed to snore while using device: No Current pressure setting perceived as: comfortable On therapy, patient: reports: sleeping better, awakening more refreshed, being more awake and alert during the day, more rested overall. denies: drowsiness while driving Initial [place] Sleepiness Scale score: 9 (in 2009) Current [place] Sleepiness Scale score: 3 Allergies and Home Medications Drug allergies reviewed: Yes (penicillin, sulfa, vicodine, iodine based dyes) Home medication list reviewed: Yes (no changes) Physical Exam Heart Rate: 68 O2 Saturation: 92 Height: 5 ft 4 in Weight: 207 lb Weight change since last visit: 3 pound gain Body Mass Index: 35.5 BMI Classification: Obese Impression and Plan 1. Obstructive Sleep Apnea-Hypopnea Syndrome, mild, with good treatment compliance and good apnea control. On CPAP therapy, the patient has better sleep quality and is more rested overall. She is having to mouth dryness in the morning and having to drink 2 glasses of water to moisten it up. I reviewed with patien that oral dryness can be reduced by adjusting humidity setting higher or heated hose lower or by adjusting both settings. Verbal instructions given on how to change humidity and heated hose settings with rationale explaining why to change. She states she will have her daughter help her to adjust the humidity. Patient's apnea severity and rationale for treatment to reduce apnea, improve sleep quality and reduce cardiovascular and cerebrovascular events was reviewed. I also reviewed the benefit of consistent device use of CPAP for hypertension, cardiac disease, and gastric reflux. * Continue auto CPAP pressure at 17 cmH2O * Notify me if snoring with mask or feeling that the pressure is too much or too little * Attempt to lose weight * Call this office if any problems using CPAP * Return for follow up in 1 year, or sooner if concerns arise Counseling Topics: Spare mask, Weight loss health impact Visit Type: In Office Time Spent with Patient (minutes): 16 Provider Statement: I spent 100% of the Face to Face Visit with the patient with greater than 50% spent counseling the patient and coordination of care.
== END 2020-08-07 07:53 | disposition home or self-care (01) ==
LOC: SC 07:52
PROVIDERS: ATTEND Nurse Practitioner Family
DX: G47.33 Obstructive sleep apnea (adult) (pediatric) (principal); E66.9 Obesity, unspecified; Z68.35 Body mass index [BMI] 35.0-35.9, adult
CPT/HCPCS: 99213; G0463; 99212

== ENCOUNTER 2020-10-22 09:38 | Outpatient (CLI) | payer MEDICARE, OTHER ==
[2020-10-22 09:53] LABS: BASOPHILS # (AUTO) 0.1 10^3/uL (0.0-0.1); BASOPHILS % (AUTO) 0.8 %; EOSINOPHILS # (AUTO) 0.3 10^3/uL (0.0-0.7); EOSINOPHILS % (AUTO) 2.8 %; HCT - HEMATOCRIT 48.5 % (37.0-47.0); HGB - HEMOGLOBIN 15.7 g/dL (12.0-16.0); LYMPHOCYTES # (AUTO) 2.5 10^3/uL (1.5-3.5); LYMPHOCYTES % (AUTO) 26.3 %; MEAN CORPUSCULAR HEMOGLOBIN 29.7 pg (27.0-31.0); MEAN CORPUSCULAR HGB CONC 32.4 g/dL (32.0-36.0); MEAN CORPUSCULAR VOLUME 91.9 fL (81.0-99.0); MONOCYTES # (AUTO) 0.8 10^3/uL (0.0-1.0); MONOCYTES % (AUTO) 8.5 %; NEUTROPHILS # (AUTO) 5.8 10^3/uL (1.5-6.6); NEUTROPHILS % (AUTO) 61.3 %; PLT - PLATELET COUNT 472 10^3/uL (130-450); RED BLOOD COUNT 5.28 10^6/uL (4.20-5.40); RED CELL DISTRIBUTION WIDTH 13.8 % (12.0-15.0); WHITE BLOOD COUNT 9.4 x10^3/uL (4.8-10.8)
[2020-10-22 10:24] LABS: ALBUMIN 4.2 g/dL (3.2-5.5); ALBUMIN/GLOBULIN RATIO 1.3 (1.0-2.2); ALKALINE PHOSPHATASE 195 IU/L (42-121); ALT ALANINE AMINOTRANSFERASE 67 IU/L (10-60); AST ASPARTATE AMINOTRANSFERASE 56 IU/L (10-42); BILIRUBIN,TOTAL 0.5 mg/dL (0.2-1.0); BUN - BLOOD UREA NITROGEN 24 mg/dL (6-20); CALCIUM 9.3 mg/dL (8.5-10.3); CARBON DIOXIDE - CO2 24 mmol/L (21-32); CHLORIDE 104 mmol/L (101-111); CHOL/HDL RATIO 3.8 (<4.4); CHOLESTEROL 142 mg/dL; CREATININE 0.6 mg/dL (0.4-1.0); GFR - MDRD 100 (>89); GLUCOSE 139 mg/dL (70-100); HDL CHOLESTEROL 37 mg/dL; LDL CHOLESTEROL,CALCULATED 81 mg/dL; LDL/HDL RATIO 2.2 (<4.4); POTASSIUM 3.9 mmol/L (3.5-5.0); SODIUM 139 mmol/L (135-145); TOTAL PROTEIN 7.4 g/dL (6.7-8.2); TRIGLYCERIDES 119 mg/dL; VLDL CHOLESTEROL 24 mg/dL
[2020-10-22 10:26] LABS: THYROID STIMULATING HORMONE 1.95 uIU/mL (0.34-5.60)
== END 2020-10-22 09:39 | disposition home or self-care (01) ==
LOC: LAB 09:38
PROVIDERS: ATTEND Internal Medicine
DX: I10 Essential (primary) hypertension (principal); E78.5 Hyperlipidemia, unspecified; E03.9 Hypothyroidism, unspecified
CPT/HCPCS: 36415; 80053; 80061; 83721; 84443; 85025

== ENCOUNTER 2020-10-30 11:57 | Outpatient (CLI) | payer MEDICARE, OTHER ==
--- NOTE | 2020-10-30 14:25 | CT Report ---
PROCEDURE: Low Dose Lung Cancer Screen INDICATIONS: HX OF SMOKING TECHNIQUE: Noncontrast low-dose 5 mm thick sections acquired from the pulmonary apices to the posterior costophr enic angles. 7 mm thick coronal and sagittal MIP reformats were then acquired. For radiation dose r eduction, the following was used: automated exposure control, adjustment of mA and/or kV according t o patient size. COMPARISON: Prior CT chest 02/07/2014 reviewed.. FINDINGS: Image quality: Excellent. Lungs and pleura: Within the anterolateral left lung apex there has been interval increase in size o f a previously present some solid focus of alveolar airspace disease in that area seen in January 2014. The maximal diameter of this area of prior airspace disease was approximately 1.3 cm. This same area is more prominent, and larger, but remains relatively "sub solid" measuring now 2.0 x 2.4 cm. This is best seen on CT series 4 image 46. Below this level on the left laterally there is a second area of airspace disease that appears somewhat linear in its orientation, and centrally is mildly spiculated, having a maximal axial dimension of 9 mm. Centrilobular emphysema appears present best seen at the upper lobes and also seen previously on CT s [place] in 2013. Mediastinum: Heart size is normal. No pericardial effusion. No mediastinal adenopathy by size crit eria. Thoracic aorta and central pulmonary arteries are normal in size. Esophagus is normal in kiki moreno. No hiatal hernia. Bones and chest wall: No suspicious bony lesions. No vertebral body compression fractures. No axil roro or supraclavicular adenopathy by size criteria. The thyroid is normal in size. Abdomen: Visualized upper abdomen solid organs and bowel loops appear normal in the absence of contr ast. IMPRESSION: Centrilobular emphysema. Reported significant smoking history. Note is made of 2 lesions neither of w hich appear to be definitively and early manifestation of malignancy. Both are "sub solid" with indis tinct margination, and the larger structure at the anterolateral left upper lobe apex has mildly enla rged from 2013. Recommend follow-up noncontrast CT scan in 6 months to assess for interval change ove r time. The smaller of the 2 lesions was not previously identified, measures up to 9 mm, and warrants follow-up in 6 months also.. Reviewed by: Tony Gastelum MD on 10/30/2020 2:24 PM PDT Approved by: Tony Gastelum MD on 10/30/2020 2:24 PM PDT Station ID: [id number]
== END 2020-10-30 11:58 | disposition home or self-care (01) ==
LOC: DI 11:57
PROVIDERS: ATTEND Internal Medicine
DX: Z12.2 Encounter for screening for malignant neoplasm of respiratory organs (principal); J43.2 Centrilobular emphysema; R91.8 Other nonspecific abnormal finding of lung field; F17.210 Nicotine dependence, cigarettes, uncomplicated

== ENCOUNTER 2020-12-31 17:17 | Emergency (ER) | payer MEDICARE, OTHER ==
--- OUTSIDE RECORDS SUMMARY | 2020-12-31 17:20 | EXTERNAL MEDICAL SUMMARY RPT | Continuity of Care Document ---
:1955 Demographics Phone Unavailable Preferred Language Unknown Marital Status Unknown Buddhist Affiliation Unknown Race Unknown Ethnic Group Unknown Author Organization [place] Address [address] [id number] Phone Care Team Providers Name Role Phone MD Unavailable Unavailable RN Unavailable Unavailable PA-C Unavailable Unavailable Registrar Unavailable Unavailable Allergies Encounters Medications date description facility [id number] NITROGLYCERIN All [id number] NITROGLYCERIN All [id number] LEVOTHYROXINE SODIUM All [id number] METOPROLOL TARTRATE All [id number] CYCLOBENZAPRINE HCL All [id number] ALBUTEROL SULFATE All [id number] PANTOPRAZOLE SODIUM All [id number] LORATADINE All [id number] CLOPIDOGREL BISULFATE All [id number] ASPIRIN All [id number] ATORVASTATIN CALCIUM All [id number] MONTELUKAST SODIUM All [id number] BENZONATATE All [id number] IPRATROPIUM-ALBUTEROL All 84516509 ERGOCALCIFEROL All [id number] PSEUDOEPHEDRINE HCL All [id number] ERGOCALCIFEROL All [id number] ALBUTEROL SULFATE All [id number] PSEUDOEPHEDRINE HCL All 54993426 VIT-FE FUMARATE-FA TABS All 73804564 ASPIRIN All 99511179 BENZONATATE All [id number] IPRATROPIUM-ALBUTEROL All 50904171 PANTOPRAZOLE SODIUM All 89630500 LEVOTHYROXINE SODIUM All 14563827 CYCLOBENZAPRINE HCL All 15812430 METOPROLOL TARTRATE All [id number] CLOPIDOGREL BISULFATE All 08039267 ATORVASTATIN CALCIUM All 06034804 LORATADINE All [id number] MONTELUKAST SODIUM All 45545333 LORATADINE All [id number] CLOPIDOGREL BISULFATE All 09202058 BENZONATATE All 04359769 BENZONATATE All 59078905 CLOPIDOGREL BISULFATE All 28619331 LORATADINE All [id number] LEVOTHYROXINE SODIUM All 70296248 METOPROLOL TARTRATE All 55538298 CYCLOBENZAPRINE HCL All 52902272 ALBUTEROL SULFATE All 39107065 PANTOPRAZOLE SODIUM All 54999819 LORATADINE All 56410491 CLOPIDOGREL BISULFATE All 57600977 ASPIRIN All 55890138 ATORVASTATIN CALCIUM All 72402163 MONTELUKAST SODIUM All 71587704 BENZONATATE All 24096535 IPRATROPIUM-ALBUTEROL All 87877658 ERGOCALCIFEROL All 20201004 PSEUDOEPHEDRINE HCL All 20201004 ERGOCALCIFEROL All 20201004 ALBUTEROL SULFATE All 20201004 PSEUDOEPHEDRINE HCL All 20201004 VIT-FE FUMARATE-FA TABS All 20201004 ASPIRIN All 20201004 BENZONATATE All 20201004 IPRATROPIUM-ALBUTEROL All 20201004 PANTOPRAZOLE SODIUM All 20201004 LEVOTHYROXINE SODIUM All 20201004 CYCLOBENZAPRINE HCL All 20201004 METOPROLOL TARTRATE All 20201004 CLOPIDOGREL BISULFATE All 20201004 ATORVASTATIN CALCIUM All 20201004 LORATADINE All 20201004 MONTELUKAST SODIUM All Problems date description facility 20201022 Unspecified hypothyroidism All 20201022 Unspecified essential hypertension All 20201022 Tobacco use disorder All 20201022 TSH WITH REFLEX TO FT4 All 20201022 Other and unspecified hyperlipidemia A ll 20201022 Nicotine dependence, unspecified, uncom plicated All 20201022 Nicotine dependence All 20201022 LIPIDS SCREEN All 20201022 LDCT LUNG SCREEN All 20201022 Hypothyroidism, unspecified All 20201022 Hypothyroidism All 20201022 Hypertensive disorder All 20201022 Hyperlipidemia, unspecified All 20201022 Hyperlipidemia All 20201022 Essential (primary) hypertension All 20201022 COMPREHENSIVE METABOLIC PANEL All 20201022 CBC W/Diff/Plt All 20201004 Details of drug misuse behavior All 20201004 Chronic obstructive lung disease All 20201004 Chronic obstructive asthma, unspecified All 20201004 Allergic rhinitis, cause unspecified A ll 20201004 Allergic rhinitis All 20201004 Current every day smoker All 20201004 Coronary atherosclerosis of unspecified type of vessel, [place] All or graft 20201004 Coronary arteriosclerosis All 20201004 Atherosclerotic heart disease of [place] coronary artery All without angina pectoris 20201004 Alcohol intake All 20201004 Chronic obstructive pulmonary disease, unspecified All 20201004 Allergic rhinitis, unspecified All 20201004 Alcohol use All 20201004 No current problems or disability - unk nown All Results test status date ordered by attending specimen sarah e THYROID_STIMULATING_HO unknown 20201022 unknown unknown unknown RMONE TSH unknown 20201022 unknown unknown unknown urea_nitrogen_blood unknown 20201022 unknown unknown unk nown Erythrocytes_volume_in unknown 20201022 unknown unknown unknown _Blood_by_Automated_cou nt Erythrocyte_distributi unknown 20201022 unknown unknown unknown on_width_Ratio_by_Autom ated_count MCV_Entitic_volume_by_ unknown 15275961 unknown unknown unknown Automated_count MCH_Entitic_mass_by_Au unknown 55437496 unknown unknown unknown tomated_count Platelets_volume_in_Bl unknown 56311365 unknown unknown unknown ood_by_Automated_count Platelet_mean_volume_E unknown 85131473 unknown unknown unknown ntitic_volume_in_Blood_ by_Rees-Adam neutrophil_count_blood unknown 56995207 unknown unknown unknown monocyte_count_blood unknown 65825125 unknown unknown un known lymphocyte_count_blood unknown 05999120 unknown unknown unknown Hemoglobin_Mass_volume unknown 97611336 unknown unknown unknown _in_Blood eosinophil_count_blood unknown 10162003 unknown unknown unknown Basophils_volume_in_Bl unknown 90096518 unknown unknown unknown ood_by_Manual_count leukocyte_count_blood unknown 67841324 unknown unknown u nknown erythrocyte_RBC_count unknown 50040273 unknown unknown u nknown Leukocytes_volume_in_B unknown 27551469 unknown unknown unknown lood_by_Automated_count Glomerular_Filtration_ unknown 40112067 unknown unknown unknown rate platelet_count unknown 04112264 unknown unknown unknown hemoglobin_blood unknown 86112750 unknown unknown unknow n hematocrit_blood unknown 96240454 unknown unknown unknow n potassium_blood unknown 07820977 unknown unknown unknown Glomerular_filtration_r unknown 08500547 unknown unknown unknown ate_1.73_sq_M.predicted _among_non-blacks_Volum e_Rate_Area_in_Serum_Pl asma_or_Blood_by_Creati nine-based_formula_MDRD _ Hematocrit_Volume_Frac unknown 36771240 unknown unknown unknown tion_of_Blood_by_Automa ted_count triglyceride_serum_fas unknown 04815098 unknown unknown unknown ting bilirubin_serum_total unknown 51368777 unknown unknown u nknown alanine_aminotransfera unknown 73600978 unknown unknown unknown se_SGPT_serum carbon_dioxide_serum_t unknown 15201820 unknown unknown unknown otal aspartate_aminotransfe unknown 85560567 unknown unknown unknown rase_SGOT_serum protein_total_serum unknown 09976981 unknown unknown unk nown blood_glucose unknown 69965955 unknown unknown unknown potassium_blood unknown 14619931 unknown unknown unknown mean_corpuscular_volum unknown 81866494 unknown unknown unknown e_RBC Urea_nitrogen_Mass_vol unknown 85964955 unknown unknown unknown ume_in_Serum_or_Plasma globulin_serum unknown 80697681 unknown unknown unknown LDL_cholesterol_serum unknown 30537794 unknown unknown u nknown alkaline_phosphatase_s unknown 26904817 unknown unknown unknown freddy Sodium_Moles_volume_in unknown 13840945 unknown unknown unknown _Serum_or_Plasma Protein_Mass_volume_in unknown 34836660 unknown unknown unknown _Serum_or_Plasma eosinophil_count_blood unknown 38393592 unknown unknown unknown anion_gap_serum unknown 36004891 unknown unknown unknown mean_platelet_volume unknown 23990416 unknown unknown un known HDL_cholesterol_serum unknown 61120667 unknown unknown u nknown Triglyceride_Mass_volu unknown 96258283 unknown unknown unknown me_in_Serum_or_Plasma_- _mg_dL very_low_density_lipop unknown 32295805 unknown unknown unknown roteins LDL_HDL_low-density_li unknown 61681154 unknown unknown unknown poprotein_high-density_ lipoprotein_ratio basophil_count_blood unknown 78074692 unknown unknown un known monocyte_count_blood unknown 26130655 unknown unknown un known lymphocyte_count_blood unknown 41989501 unknown unknown unknown neutrophil_count_blood unknown 11514043 unknown unknown unknown cholesterol_HDL_ratio_ unknown 33365059 unknown unknown unknown serum_percent Glucose_Mass_volume_in unknown 14872601 unknown unknown unknown _Serum_or_Plasma Globulin_Mass_volume_i unknown 91913844 unknown unknown unknown n_Serum Creatinine_Mass_volume unknown 76764261 unknown unknown unknown _in_Serum_or_Plasma cholesterol_HDL_ratio_ unknown 61257481 unknown unknown unknown serum_percent Cholesterol_Mass_volum unknown 24428917 unknown unknown unknown e_in_Serum_or_Plasma_-_ mg_dL Cholesterol_in_VLDL_Ma unknown 60202891 unknown unknown unknown ss_volume_in_Serum_or_P lasma Cholesterol_in_LDL_Mas unknown 65902491 unknown unknown unknown s_volume_in_Serum_or_Pl asma_-_mg_dL Cholesterol_in_HDL_Mas unknown 29612613 unknown unknown unknown s_volume_in_Serum_or_Pl asma_-_mg_dL Chloride_Moles_volume_ unknown 88214819 unknown unknown unknown in_Serum_or_Plasma carbon_dioxide_serum_t unknown 96545722 unknown unknown unknown otal Calcium_Moles_volume_i unknown 28617402 unknown unknown unknown n_Serum_or_Plasma albumin_serum unknown 65119517 unknown unknown unknown Bilirubin.total_Mass_v unknown 35791789 unknown unknown unknown olume_in_Serum_or_Plasm a Aspartate_aminotransfe unknown 73362103 unknown unknown unknown rase_Enzymatic_activity _volume_in_Serum_or_Pla sma Anion_gap_4_in_Serum_o unknown 08722638 unknown unknown unknown r_Plasma creatinine_serum unknown 07807503 unknown unknown unknow n Alkaline_phosphatase_E unknown 76113091 unknown unknown unknown nzymatic_activity_volum e_in_Blood Albumin_Globulin_Mass_ unknown 69761217 unknown unknown unknown Ratio_in_Serum_or_Plasm a Albumin_Mass_volume_in unknown 28468715 unknown unknown unknown _Serum_or_Plasma Alanine_aminotransfera unknown 16461296 unknown unknown unknown se_Enzymatic_activity_v olume_in_Serum_or_Plasm a mean_corpuscular_hemog unknown 21204515 unknown unknown unknown lobin_concentration_rbc sodium_serum unknown 38685563 unknown unknown unknown albumin_globulin_ratio unknown 29306019 unknown unknown unknown _serum cholesterol_serum unknown 86277463 unknown unknown unkno wn chloride_serum unknown 75490625 unknown unknown unknown Thyrotropin_Units_volu unknown 91283764 unknown unknown unknown me_in_Serum_or_Plasma_b y_Detection_limit_lt_0. 05_mIU_L calcium_serum unknown 83910762 unknown unknown unknown mean_corpuscular_hemog unknown 58978249 unknown unknown unknown lobin_RBC red_blood_cell_distrib unknown 04397370 unknown unknown unknown ution_width T unknown 53911247 unknown unknown unknown T unknown 71022345 unknown unknown unknown T unknown 39460941 unknown unknown unknown T unknown 62723253 unknown unknown unknown T unknown 91463340 unknown unknown unknown T unknown 50794501 unknown unknown unknown T unknown 93208863 unknown unknown unknown T unknown 20201022 unknown unknown unknown T unknown 42270784 unknown unknown unknown NEUTROPHILS_AUTO_ unknown 91573385 unknown unknown unkno wn T unknown 14770490 unknown unknown unknown T unknown 78439773 unknown unknown unknown T unknown 78889738 unknown unknown unknown MONOCYTES_AUTO_ unknown 16571089 unknown unknown unknown T unknown 19941022 unknown unknown unknown T unknown 48222559 unknown unknown unknown T unknown 98442954 unknown unknown unknown T unknown 62681943 unknown unknown unknown LYMPHOCYTES_AUTO_ unknown 21272047 unknown unknown unkno wn T unknown 34567436 unknown unknown unknown T unknown 77751304 unknown unknown unknown T unknown 28700114 unknown unknown unknown LDL_HDL_RATIO unknown 64944532 unknown unknown unknown LDL_CHOLESTEROL_CALCUL unknown 64000714 unknown unknown unknown ATED T unknown 75881975 unknown unknown unknown T unknown 97614438 unknown unknown unknown T unknown 91590691 unknown unknown unknown T unknown 12802116 unknown unknown unknown T unknown 67351790 unknown unknown unknown T unknown 38794497 unknown unknown unknown T unknown 85485955 unknown unknown unknown GFR_-_MDRD unknown 56814252 unknown unknown unknown T unknown 97019784 unknown unknown unknown EOSINOPHILS_AUTO_ unknown 28345991 unknown unknown unkno wn T unknown 75893763 unknown unknown unknown T unknown 35254859 unknown unknown unknown T unknown 11235732 unknown unknown unknown T unknown 91908232 unknown unknown unknown T unknown 45726384 unknown unknown unknown T unknown 20542798 unknown unknown unknown CHOL_HDL_RATIO unknown 81022650 unknown unknown unknown T unknown 84482777 unknown unknown unknown T unknown 22111232 unknown unknown unknown BILIRUBIN_TOTAL unknown 44948292 unknown unknown unknown BASOPHILS_AUTO_ unknown 02527089 unknown unknown unknown T unknown 75209435 unknown unknown unknown T unknown 57440715 unknown unknown unknown T unknown 71842206 unknown unknown unknown T unknown 12263446 unknown unknown unknown ALT_ALANINE_AMINOTRANS unknown 34934421 unknown unknown unknown FERASE ALKALINE_PHOSPHATASE unknown 66443675 unknown unknown un known T unknown 41384187 unknown unknown unknown T unknown 36570449 unknown unknown unknown ALBUMIN_GLOBULIN_RATIO unknown 60288528 unknown unknown unknown facility observation status value reference units lab code abn ormal line range notes All THYROID_STIM unknown 0.0019 unknown m[iU]/ rTSH unknown unknown ULATING_HORMO 5 mL NE All TSH unknown 0.0019 unknown m[iU]/ _90820 unknown unkn own 5 mL All urea_nitroge unknown 24 unknown mg/dL _9 unknown unknown n_blood All Erythrocytes unknown 5.28 unknown _789-8 unknown unknown _volume_in_Bl 10 6/UL ood_by_Automa ted_count All Erythrocyte_ unknown 13.8 unknown % _788-0 unknown unknown distribution_ width_Ratio_b y_Automated_c ount All MCV_Entitic_ unknown 91.9 unknown fL _787-2 unknown unknown volume_by_Aut omated_count All MCH_Entitic_ unknown 29.7 unknown pg _785-6 unknown unknown mass_by_Autom ated_count All Platelets_vo unknown 472 10 unknown _777-3 unknown unknown lume_in_Blood 3/UL _by_Automated _count All Platelet_mea unknown 10.0 unknown fL _776-5 unknown unknown n_volume_Enti tic_volume_in _Blood_by_Ree s-Adam All neutrophil_c unknown 5.8 10 unknown _752-6 unknown unknown ount_blood 3/UL All monocyte_cou unknown 0.8 10 unknown _743-5 unknown unknown nt_blood 3/UL All lymphocyte_c unknown 2.5 10 unknown _732-8 unknown unknown ount_blood 3/UL All Hemoglobin_M unknown 15.7 unknown g/dL _718-7 unknown unknown ass_volume_in _Blood All eosinophil_c unknown 0.3 10 unknown _712-0 unknown unknown ount_blood 3/UL All Basophils_vo unknown 0.1 10 unknown _705-4 unknown unknown lume_in_Blood 3/UL _by_Manual_co unt All leukocyte_co unknown 9.4 unknown _68 unknown unknown unt_blood X10 3/UL All erythrocyte_ unknown 5.28 unknown _67 unknown unknown RBC_count 10 6/UL All Leukocytes_v unknown 9.4 unknown _6690-2 unknow n unknown olume_in_Bloo X10 d_by_Automate 3/UL d_count All Glomerular_F unknown 100 unknown mL/min _66455 unknown unknown iltration_rat e All platelet_cou unknown 472 10 unknown _66 unknown unknown nt 3/UL All hemoglobin_b unknown 15.7 unknown g/dL _65 unknown unknown lood All hematocrit_b unknown 48.5 unknown % _64 unknown unknown lood All potassium_bl unknown 3.9 unknown meq/L _6298-4 unknow n unknown ood All Glomerular_fi unknown 100 unknown mL/min _48642-3 unkno wn unknown ltration_rate _1.73_sq_M.pr edicted_among _non-blacks_V olume_Rate_Ar ea_in_Serum_P lasma_or_Bloo d_by_Creatini ne-based_form ula_MDRD_ All Hematocrit_V unknown 48.5 unknown % _4544-3 unknow n unknown olume_Fractio n_of_Blood_by _Automated_co unt All triglyceride unknown 119 unknown mg/dL _44 unknown unknown _serum_fastin g All bilirubin_se unknown 0.5 unknown mg/dL _43 unknown unknown rum_total All alanine_amin unknown 67 unknown U/L _40 unknown unknown otransferase_ SGPT_serum All carbon_dioxi unknown 24 unknown mmol/L _3962 unknown unknown de_serum_tota l All aspartate_am unknown 56 unknown U/L _39 unknown unknown inotransferas e_SGOT_serum All protein_tota unknown 7.4 unknown g/dL _36 unknown unknown l_serum All blood_glucos unknown 139 unknown mg/dL _3565 unknown unknown e All potassium_bl unknown 3.9 unknown meq/L _3483 unknown unknown ood All mean_corpusc unknown 91.9 unknown fL _315 unknown unknown ular_volume_R BC All Urea_nitroge unknown 24 unknown mg/dL _3094-0 unknow n unknown n_Mass_volume _in_Serum_or_ Plasma All globulin_ser unknown 3.2 unknown _3059 unknown unknown um All LDL_choleste unknown 81 unknown mg/dL _30 unknown unknown rol_serum All alkaline_pho unknown 195 unknown U/L _3 unknown unknown sphatase_seru m All Sodium_Moles unknown 139 unknown mmol/L _2951-2 unknow n unknown _volume_in_Se rum_or_Plasma All Protein_Mass unknown 7.4 unknown g/dL _2885-2 unknow n unknown _volume_in_Se rum_or_Plasma All eosinophil_c unknown 0.3 10 unknown _285 unknown unknown ount_blood 3/UL All anion_gap_se unknown 11.0 unknown _279 unknown unknown rum All mean_platele unknown 10.0 unknown fL _2784 unknown unknown t_volume All HDL_choleste unknown 37 unknown mg/dL _26 unknown unknown rol_serum All Triglyceride unknown 119 unknown mg/dL _2571-8 unknow n unknown _Mass_volume_ in_Serum_or_P lasma_-_mg_dL All very_low_den unknown 24 unknown mg/dL _2548 unknown unknown sity_lipoprot eins All LDL_HDL_low- unknown 2.2 unknown _25165 unknown unknown density_lipop (?) rotein_high-d ensity_lipopr otein_ratio All basophil_cou unknown 0.1 10 unknown _2427 unknown unknown nt_blood 3/UL All monocyte_cou unknown 0.8 10 unknown _2422 unknown unknown nt_blood 3/UL All lymphocyte_c unknown 2.5 10 unknown _2420 unknown unknown ount_blood 3/UL All neutrophil_c unknown 5.8 10 unknown _2418 unknown unknown ount_blood 3/UL All cholesterol_ unknown 3.8 unknown _2404 unknown unknown HDL_ratio_ser um_percent All Glucose_Mass unknown 139 unknown mg/dL _2345-7 unknow n unknown _volume_in_Se rum_or_Plasma All Globulin_Mas unknown 3.2 unknown _2336-6 unknow n unknown s_volume_in_S freddy All Creatinine_M unknown 0.6 unknown mg/dL _2160-0 unknow n unknown ass_volume_in _Serum_or_Pla sma All cholesterol_ unknown 3.8 unknown _2095-8 unknow n unknown HDL_ratio_ser um_percent All Cholesterol_ unknown 142 unknown mg/dL _2093-3 unknow n unknown Mass_volume_i n_Serum_or_Pl asma_-_mg_dL All Cholesterol_ unknown 24 unknown mg/dL _2091-7 unknow n unknown in_VLDL_Mass_ volume_in_Ser um_or_Plasma All Cholesterol_ unknown 81 unknown mg/dL _9-1 unknow n unknown in_LDL_Mass_v olume_in_Seru m_or_Plasma_- _mg_dL All Cholesterol_ unknown 37 unknown mg/dL _5-9 unknow n unknown in_HDL_Mass_v olume_in_Seru m_or_Plasma_- _mg_dL All Chloride_Mol unknown 104 unknown mmol/L _2074-0 unknow n unknown es_volume_in_ Serum_or_Plas ma All carbon_dioxi unknown 24 unknown mmol/L _2027- unknow n unknown de_serum_tota l All Calcium_Mole unknown 9.3 unknown mg/dL _1999- unknow n unknown s_volume_in_S erum_or_Plasm a All albumin_seru unknown 4.2 unknown g/dL _2 unknown unknown m All Bilirubin.to unknown 0.5 unknown mg/dL _1974- unknow n unknown tal_Mass_volu me_in_Serum_o r_Plasma All Aspartate_am unknown 56 unknown U/L _1919- unknow n unknown inotransferas e_Enzymatic_a ctivity_volum e_in_Serum_or _Plasma All Anion_gap_4_ unknown 11.0 unknown _1863-0 unknow n unknown in_Serum_or_P lasma All creatinine_s unknown 0.6 unknown mg/dL _18 unknown unknown freddy All Alkaline_pho unknown 195 unknown U/L _1783-0 unknow n unknown sphatase_Enzy matic_activit y_volume_in_B lood All Albumin_Glob unknown 1.3 unknown _1759-0 unknow n unknown ulin_Mass_Rat io_in_Serum_o r_Plasma All Albumin_Mass unknown 4.2 unknown g/dL _1751-7 unknow n unknown _volume_in_Se rum_or_Plasma All Alanine_amin unknown 67 unknown U/L _1742-6 unknow n unknown otransferase_ Enzymatic_act ivity_volume_ in_Serum_or_P lasma All mean_corpusc unknown 32.4 unknown g/dL _17029 unknown unknown ular_hemoglob in_concentrat ion_rbc All sodium_serum unknown 139 unknown mmol/L _159 unknown unknown All albumin_glob unknown 1.3 unknown _146 unknown unknown ulin_ratio_se rum All cholesterol_ unknown 142 unknown mg/dL _14 unknown unknown serum All chloride_ser unknown 104 unknown mmol/L _13 unknown unknown um All Thyrotropin_ unknown 0.0019 unknown m[iU]/ _11579-0 unkno wn unknown Units_volume_ 5 mL in_Serum_or_P lasma_by_Dete ction_limit_l t_0.05_mIU_L All calcium_seru unknown 9.3 unknown mg/dL _11 unknown unknown m All mean_corpusc unknown 29.7 unknown pg _1031 unknown unknown ular_hemoglob in_RBC All red_blood_ce unknown 13.8 unknown % _1030 unknown unknown ll_distributi on_width All T unknown 9.4 unknown WBC unknown unkn own X10 3/UL All T unknown 24 unknown mg/dL VLDL unknown unkn own All T unknown 0.0019 unknown m[iU]/ TSH unknown unkn own 5 mL All T unknown 119 unknown mg/dL TRIG unknown unkn own All T unknown 0.5 unknown mg/dL TOTAL_BI unknown un known LI All T unknown 13.8 unknown % RDW unknown unkn own All T unknown 5.28 unknown RBC unknown unkn own 10 6/UL All T unknown 7.4 unknown g/dL PRO_TOTA unknown un known L All T unknown 472 10 unknown PLT unknown unkn own 3/UL All NEUTROPHILS_ unknown 5.8 10 unknown NE_ unknown unknown AUTO_ 3/UL All T unknown 5.8 10 unknown NEUT_AUT unknown un known 3/UL O_ All T unknown 139 unknown mmol/L NA unknown unkn own All T unknown 10.0 unknown fL MPV unknown unkn own All MONOCYTES_AU unknown 0.8 10 unknown MO_ unknown unknown TO_ 3/UL All T unknown 0.8 10 unknown MONO_AUT unknown un known 3/UL O_ All T unknown 91.9 unknown fL MCV unknown unkn own All T unknown 32.4 unknown g/dL MCHC unknown unkn own All T unknown 29.7 unknown pg MCH unknown unkn own All LYMPHOCYTES_ unknown 2.5 10 unknown LY_ unknown unknown AUTO_ 3/UL All T unknown 2.5 10 unknown LYMPH_AU unknown un known 3/UL TO_ All T unknown 2.2 unknown LDL_HDL_ unknown un known (?) RATIO All T unknown 81 unknown mg/dL LDL_CALC unknown un known All LDL_HDL_RATI unknown 2.2 unknown LDLHDL unknown unknown O (?) All LDL_CHOLESTE unknown 81 unknown mg/dL LDLC unknown unknown ROL_CALCULATE D All T unknown 3.9 unknown meq/L K unknown unkn own All T unknown 15.7 unknown g/dL HGB unknown unkn own All T unknown 37 unknown mg/dL HDL unknown unkn own All T unknown 48.5 unknown % HCT unknown unkn own All T unknown 139 unknown mg/dL GLU unknown unkn own All T unknown 3.2 unknown GLOB unknown unkn own All T unknown 100 unknown mL/min GFR_-_MD unknown un known RD All GFR_-_MDRD unknown 100 unknown mL/min GFR unknown unknown All T unknown 11.0 unknown GAP unknown unkn own All EOSINOPHILS_ unknown 0.3 10 unknown EO_ unknown unknown AUTO_ 3/UL All T unknown 0.3 10 unknown EOS_AUTO unknown un known 3/UL _ All T unknown 0.6 unknown mg/dL CREAT unknown unkn own All T unknown 24 unknown mmol/L CO2 unknown unkn own All T unknown 104 unknown mmol/L CL unknown unkn own All T unknown 3.8 unknown CHOL_HDL unknown un known _RATIO All T unknown 142 unknown mg/dL CHOL unknown unkn own All CHOL_HDL_RAT unknown 3.8 unknown CHLHDL unknown unknown IO All T unknown 9.3 unknown mg/dL CA unknown unkn own All T unknown 24 unknown mg/dL BUN unknown unkn own All BILIRUBIN_TO unknown 0.5 unknown mg/dL BILIT unknown unknown ROSETTA All BASOPHILS_AU unknown 0.1 10 unknown BA_ unknown unknown TO_ 3/UL All T unknown 0.1 10 unknown BASO_AUT unknown un known 3/UL O_ All T unknown 1.3 unknown A_G_RATI unknown un known O All T unknown 56 unknown U/L AST unknown unkn own All T unknown 67 unknown U/L ALT_SGPT unknown un known _ All ALT_ALANINE_ unknown 67 unknown U/L ALT unknown unknown AMINOTRANSFER ASE All ALKALINE_PHO unknown 195 unknown U/L ALP unknown unknown SPHATASE All T unknown 195 unknown U/L ALK_PHOS unknown un known All T unknown 4.2 unknown g/dL ALB unknown unkn own All ALBUMIN_GLOB unknown 1.3 unknown AGRATIO unknow n unknown ULIN_RATIO [employer] date measurement value source 20201004 weight_standard 206 lb 20201004 weight_metric 93.44 kg 20201004 temperature_standard 97.5 F 20201004 temperature_metric 36.39 C 20201004 respiration_rate 19 /min 20201004 height_standard 64 in 20201004 height_metric 162.56 cm 20201004 heart_rate 71 /min 20201004 BP_systolic 143 mm[Hg] 20201004 BP_diastolic 81 mm[Hg] 20201004 BMI 35.49 kg/m2 20201004 weight_standard 206 lb 20201004 weight_metric 93.44 kg 20201004 temperature_standard 97.5 F 20201004 temperature_metric 36.39 C 20201004 respiration_rate 19 /min 20201004 height_standard 64 in 20201004 height_metric 162.56 cm 20201004 heart_rate 71 /min 20201004 BP_systolic 143 mm[Hg] 20201004 BP_diastolic 81 mm[Hg] 20201004 BMI 35.49 kg/m2 20201004 weight_standard 206 lb 20201004 weight_metric 93.44 kg 20201004 temperature_standard 97.5 F 20201004 temperature_metric 36.39 C 20201004 respiration_rate 19 /min 20201004 height_standard 64 in 20201004 height_metric 162.56 cm 20201004 heart_rate 71 /min 20201004 BP_systolic 143 mm[Hg] 20201004 BP_diastolic 81 mm[Hg] 20201004 BMI 35.49 kg/m2
--- OUTSIDE RECORDS SUMMARY | 2020-12-31 17:38 | EXTERNAL MEDICAL SUMMARY RPT | Continuity of Care Document ---
:1955 Demographics Phone Unavailable Preferred Language Unknown Marital Status Unknown Buddhist Affiliation Unknown Race Unknown Ethnic Group Unknown Author Organization [facility] Address [address] [id number] Phone Care Team Providers Name Role Phone MD Unavailable Unavailable RN Unavailable Unavailable PA-C Unavailable Unavailable Registrar Unavailable Unavailable Allergies Encounters Medications date description facility [id number] NITROGLYCERIN All [id number] NITROGLYCERIN All [id number] LEVOTHYROXINE SODIUM All [id number] METOPROLOL TARTRATE All [id number] CYCLOBENZAPRINE HCL All 78651671 ALBUTEROL SULFATE All 69160073 PANTOPRAZOLE SODIUM All 29885675 LORATADINE All [id number] CLOPIDOGREL BISULFATE All 15586460 ASPIRIN All [id number] ATORVASTATIN CALCIUM All [id number] MONTELUKAST SODIUM All [id number] BENZONATATE All 78885612 IPRATROPIUM-ALBUTEROL All 24279911 ERGOCALCIFEROL All [id number] PSEUDOEPHEDRINE HCL All 42731110 ERGOCALCIFEROL All 81646381 ALBUTEROL SULFATE All 20331206 PSEUDOEPHEDRINE HCL All [id number] VIT-FE FUMARATE-FA TABS All [id number] ASPIRIN All 96808510 BENZONATATE All 92964085 IPRATROPIUM-ALBUTEROL All 27329618 PANTOPRAZOLE SODIUM All 55655613 LEVOTHYROXINE SODIUM All 95914078 CYCLOBENZAPRINE HCL All 19233092 METOPROLOL TARTRATE All 89750314 CLOPIDOGREL BISULFATE All 43787422 ATORVASTATIN CALCIUM All 76565124 LORATADINE All 06533757 MONTELUKAST SODIUM All 28948334 LORATADINE All 05145606 CLOPIDOGREL BISULFATE All 53246401 BENZONATATE All 81895441 BENZONATATE All 52475825 CLOPIDOGREL BISULFATE All 42443331 LORATADINE All 75214179 LEVOTHYROXINE SODIUM All 79886403 METOPROLOL TARTRATE All 17939718 CYCLOBENZAPRINE HCL All 63648894 ALBUTEROL SULFATE All 40887629 PANTOPRAZOLE SODIUM All 80021391 LORATADINE All 13434382 CLOPIDOGREL BISULFATE All 63233503 ASPIRIN All 05445838 ATORVASTATIN CALCIUM All 58294250 MONTELUKAST SODIUM All 17965876 BENZONATATE All 09975226 IPRATROPIUM-ALBUTEROL All 69109128 ERGOCALCIFEROL All 20201004 PSEUDOEPHEDRINE HCL All 20201004 [...] Coronary atherosclerosis of unspecified type of vessel, [place] All or graft 20201004 Coronary arteriosclerosis All 20201004 Atherosclerotic heart disease of [place] coronary artery All without angina pectoris 20201004 [...] unknown unknown unknown on_width_Ratio_by_Autom ated_count MCV_Entitic_volume_by_ unknown 60378720 unknown unknown unknown Automated_count MCH_Entitic_mass_by_Au unknown 43207016 unknown unknown unknown tomated_count Platelets_volume_in_Bl unknown 04760317 unknown unknown unknown ood_by_Automated_count Platelet_mean_volume_E unknown 91928895 unknown unknown unknown ntitic_volume_in_Blood_ by_Rees-Adam neutrophil_count_blood unknown 37757974 unknown unknown unknown monocyte_count_blood unknown 24173470 unknown unknown un known lymphocyte_count_blood unknown 21310476 unknown unknown unknown Hemoglobin_Mass_volume unknown 94269292 unknown unknown unknown _in_Blood eosinophil_count_blood unknown 85786882 unknown unknown unknown Basophils_volume_in_Bl unknown 16764403 unknown unknown unknown ood_by_Manual_count leukocyte_count_blood unknown 16125780 unknown unknown u nknown erythrocyte_RBC_count unknown 30988815 unknown unknown u nknown Leukocytes_volume_in_B unknown 21619998 unknown unknown unknown lood_by_Automated_count Glomerular_Filtration_ unknown 04008511 unknown unknown unknown rate platelet_count unknown 29808038 unknown unknown unknown hemoglobin_blood unknown 39704424 unknown unknown unknow n hematocrit_blood unknown 55053552 unknown unknown unknow n potassium_blood unknown 00765977 unknown unknown unknown Glomerular_filtration_r unknown 18544911 unknown unknown unknown ate_1.73_sq_M.predicted _among_non-blacks_Volum e_Rate_Area_in_Serum_Pl asma_or_Blood_by_Creati nine-based_formula_MDRD _ Hematocrit_Volume_Frac unknown 02220534 unknown unknown unknown tion_of_Blood_by_Automa ted_count triglyceride_serum_fas unknown 31956279 unknown unknown unknown ting bilirubin_serum_total unknown 85060811 unknown unknown u nknown alanine_aminotransfera unknown 82594837 unknown unknown unknown se_SGPT_serum carbon_dioxide_serum_t unknown 02186979 unknown unknown unknown otal aspartate_aminotransfe unknown 89034336 unknown unknown unknown rase_SGOT_serum protein_total_serum unknown 17770610 unknown unknown unk nown blood_glucose unknown 41910321 unknown unknown unknown potassium_blood unknown 77045353 unknown unknown unknown mean_corpuscular_volum unknown 39631465 unknown unknown unknown e_RBC Urea_nitrogen_Mass_vol unknown 14800202 unknown unknown unknown ume_in_Serum_or_Plasma globulin_serum unknown 69025041 unknown unknown unknown LDL_cholesterol_serum unknown 70119530 unknown unknown u nknown alkaline_phosphatase_s unknown 09388452 unknown unknown unknown freddy Sodium_Moles_volume_in unknown 56342837 unknown unknown unknown _Serum_or_Plasma Protein_Mass_volume_in unknown 91633295 unknown unknown unknown _Serum_or_Plasma eosinophil_count_blood unknown 03088486 unknown unknown unknown anion_gap_serum unknown 78096071 unknown unknown unknown mean_platelet_volume unknown 15985022 unknown unknown un known HDL_cholesterol_serum unknown 31363538 unknown unknown u nknown Triglyceride_Mass_volu unknown 22747960 unknown unknown unknown me_in_Serum_or_Plasma_- _mg_dL very_low_density_lipop unknown 06361351 unknown unknown unknown roteins LDL_HDL_low-density_li unknown 76590241 unknown unknown unknown poprotein_high-density_ lipoprotein_ratio basophil_count_blood unknown 35413450 unknown unknown un known monocyte_count_blood unknown 06583023 unknown unknown un known lymphocyte_count_blood unknown 69648399 unknown unknown unknown neutrophil_count_blood unknown 75141878 unknown unknown unknown cholesterol_HDL_ratio_ unknown 77169935 unknown unknown unknown serum_percent Glucose_Mass_volume_in unknown 19865166 unknown unknown unknown _Serum_or_Plasma Globulin_Mass_volume_i unknown 69317999 unknown unknown unknown n_Serum Creatinine_Mass_volume unknown 85806655 unknown unknown unknown _in_Serum_or_Plasma cholesterol_HDL_ratio_ unknown 03465779 unknown unknown unknown serum_percent Cholesterol_Mass_volum unknown 86152582 unknown unknown unknown e_in_Serum_or_Plasma_-_ mg_dL Cholesterol_in_VLDL_Ma unknown 68272014 unknown unknown unknown ss_volume_in_Serum_or_P lasma Cholesterol_in_LDL_Mas unknown 26040896 unknown unknown unknown s_volume_in_Serum_or_Pl asma_-_mg_dL Cholesterol_in_HDL_Mas unknown 08805577 unknown unknown unknown s_volume_in_Serum_or_Pl asma_-_mg_dL Chloride_Moles_volume_ unknown 26772672 unknown unknown unknown in_Serum_or_Plasma carbon_dioxide_serum_t unknown 67713753 unknown unknown unknown otal Calcium_Moles_volume_i unknown 78098990 unknown unknown unknown n_Serum_or_Plasma albumin_serum unknown 11880054 unknown unknown unknown Bilirubin.total_Mass_v unknown 37084489 unknown unknown unknown olume_in_Serum_or_Plasm a Aspartate_aminotransfe unknown 06501091 unknown unknown unknown rase_Enzymatic_activity _volume_in_Serum_or_Pla sma Anion_gap_4_in_Serum_o unknown 79211498 unknown unknown unknown r_Plasma creatinine_serum unknown 75326420 unknown unknown unknow n Alkaline_phosphatase_E unknown 94481988 unknown unknown unknown nzymatic_activity_volum e_in_Blood Albumin_Globulin_Mass_ unknown 35509930 unknown unknown unknown Ratio_in_Serum_or_Plasm a Albumin_Mass_volume_in unknown 11957987 unknown unknown unknown _Serum_or_Plasma Alanine_aminotransfera unknown 67972027 unknown unknown unknown se_Enzymatic_activity_v olume_in_Serum_or_Plasm a mean_corpuscular_hemog unknown 48131236 unknown unknown unknown lobin_concentration_rbc sodium_serum unknown 70285521 unknown unknown unknown albumin_globulin_ratio unknown 22740034 unknown unknown unknown _serum cholesterol_serum unknown 50200824 unknown unknown unkno wn chloride_serum unknown 97719345 unknown unknown unknown Thyrotropin_Units_volu unknown 68951955 unknown unknown unknown me_in_Serum_or_Plasma_b y_Detection_limit_lt_0. 05_mIU_L calcium_serum unknown 48519684 unknown unknown unknown mean_corpuscular_hemog unknown 60929206 unknown unknown unknown lobin_RBC red_blood_cell_distrib unknown 40435729 unknown unknown unknown ution_width T unknown 93187712 unknown unknown unknown T unknown 88807865 unknown unknown unknown T unknown 99152912 unknown unknown unknown T unknown 06638990 unknown unknown unknown T unknown 75254889 unknown unknown unknown T unknown 14235880 unknown unknown unknown T unknown 79831740 unknown unknown unknown T unknown 20201022 unknown unknown unknown T unknown 30980846 unknown unknown unknown NEUTROPHILS_AUTO_ unknown 82751491 unknown unknown unkno wn T unknown 13251149 unknown unknown unknown T unknown 19049721 unknown unknown unknown T unknown 51127620 unknown unknown unknown MONOCYTES_AUTO_ unknown 13889782 unknown unknown unknown T unknown 49043968 unknown unknown unknown T unknown 69449226 unknown unknown unknown T unknown 74505447 unknown unknown unknown T unknown 99906933 unknown unknown unknown LYMPHOCYTES_AUTO_ unknown 41960201 unknown unknown unkno wn T unknown 32493358 unknown unknown unknown T unknown 87538432 unknown unknown unknown T unknown 99625107 unknown unknown unknown LDL_HDL_RATIO unknown 34353914 unknown unknown unknown LDL_CHOLESTEROL_CALCUL unknown 98409527 unknown unknown unknown ATED T unknown 25591167 unknown unknown unknown T unknown 17839469 unknown unknown unknown T unknown 15289515 unknown unknown unknown T unknown 38048893 unknown unknown unknown T unknown 69169949 unknown unknown unknown T unknown 53971729 unknown unknown unknown T unknown 25215741 unknown unknown unknown GFR_-_MDRD unknown 72066291 unknown unknown unknown T unknown 67645044 unknown unknown unknown EOSINOPHILS_AUTO_ unknown 76392623 unknown unknown unkno wn T unknown 98390902 unknown unknown unknown T unknown 25964119 unknown unknown unknown T unknown 55265440 unknown unknown unknown T unknown 02208804 unknown unknown unknown T unknown 68646791 unknown unknown unknown T unknown 93173074 unknown unknown unknown CHOL_HDL_RATIO unknown 66763121 unknown unknown unknown T unknown 95654029 unknown unknown unknown T unknown 06749818 unknown unknown unknown BILIRUBIN_TOTAL unknown 29164562 unknown unknown unknown BASOPHILS_AUTO_ unknown 06115008 unknown unknown unknown T unknown 47795384 unknown unknown unknown T unknown 97665323 unknown unknown unknown T unknown 51173711 unknown unknown unknown T unknown 09985360 unknown unknown unknown ALT_ALANINE_AMINOTRANS unknown 49453931 unknown unknown unknown FERASE ALKALINE_PHOSPHATASE unknown 15412742 unknown unknown un known T unknown 27700112 unknown unknown unknown T unknown 78890112 unknown unknown unknown ALBUMIN_GLOBULIN_RATIO unknown 61829080 unknown unknown unknown facility observation status value [...]
[2020-12-31 17:48] LABS: BASOPHILS # (AUTO) 0.1 10^3/uL (0.0-0.1); BASOPHILS % (AUTO) 0.8 %; EOSINOPHILS # (AUTO) 0.2 10^3/uL (0.0-0.7); EOSINOPHILS % (AUTO) 2.5 %; HCT - HEMATOCRIT 42.4 % (37.0-47.0); LYMPHOCYTES # (AUTO) 1.9 10^3/uL (1.5-3.5); LYMPHOCYTES % (AUTO) 25.2 %; MEAN CORPUSCULAR HEMOGLOBIN 29.9 pg (27.0-31.0); MEAN CORPUSCULAR VOLUME 90.6 fL (81.0-99.0); MEAN PLATELET VOLUME 9.9 fL (7.9-10.8); MONOCYTES # (AUTO) 0.7 10^3/uL (0.0-1.0); MONOCYTES % (AUTO) 9.4 %; NEUTROPHILS # (AUTO) 4.7 10^3/uL (1.5-6.6); PLT - PLATELET COUNT 461 10^3/uL (130-450); RED BLOOD COUNT 4.68 10^6/uL (4.20-5.40); RED CELL DISTRIBUTION WIDTH 13.9 % (12.0-15.0); WHITE BLOOD COUNT 7.5 x10^3/uL (4.8-10.8)
--- NOTE | 2020-12-31 18:00 | ED Physician Documentation ---
History of Present Illness - Stated complaint Stated Complaint: LIGHT HEADED, SHAKY - Chief complaint Chief Complaint: General - History obtained from History obtained from: Patient - Additonal information Additional information: D5-year-old woman with history of COPD, coronary disease, chronic sinus issues developed dizziness today. She is had vertigo in the past and this is quite different. She feels like she is floating 50 yards above the earth. It is associated with a mild headache and nausea. It is not the worst headache of her life. There is no associated chest pain or increased trouble breathing. No pedal edema or calf pain. Review of Systems Ten Systems: 10 systems reviewed and negative Constitutional: denies: Fever, Chills, Fatigue Nose: reports: Rhinorrhea / runny nose Throat: denies: Sore throat Cardiac: denies: Chest pain / pressure, Palpitations Respiratory: denies: Cough PD PAST MEDICAL HISTORY - Past Medical History Cardiovascular: None, Hypertension, Angina Respiratory: Asthma, COPD, Sleep apnea, CPAP use Neuro: None Endocrine/Autoimmune: HyPOthyroidism GI: GERD [employer]M: Other : None HEENT: Chronic sinusitis Psych: None, Anxiety Musculoskeletal: Osteoarthritis - Past Surgical History Past Surgical History: Yes General: Colonoscopy /[employer]: Hysterectomy Cardiovascular: Coronary stent, Angioplasty Neuro: Other HEENT: Tonsil/Adenoidectomy - Present Medications Home Medications: Ambulatory Orders Medication Instructions Recorded Confirmed Atorvastatin Calcium 80 mg PO DAILY 06/29/17 12/31/20 Clopidogrel [Plavix] 75 mg PO DAILY 06/29/17 12/31/20 Metoprolol Succinate 25 mg PO BID 06/29/17 12/31/20 Aspirin EC [Ecotrin] 81 mg PO DAILY 12/31/20 12/31/20 Benzonatate [Tessalon] 100 mg PO TID PRN 12/31/20 12/31/20 Cyclobenzaprine [Flexeril] 10 mg PO TID 12/31/20 12/31/20 Ergocalciferol [Vitamin D2] 50,000 unit PO PRN PRN 12/31/20 12/31/20 Levothyroxine Sodium [Synthroid] 75 mcg PO DAILY 12/31/20 12/31/20 Loratadine [Claritin] 10 mg PO DAILY 12/31/20 12/31/20 Montelukast [Singulair] 10 mg PO DAILY 12/31/20 12/31/20 Pantoprazole [Protonix] 40 mg PO DAILY 12/31/20 12/31/20 Pseudoephedrine [Sudafed] 60 mg PO QID PRN 12/31/20 12/31/20 - Allergies Allergies/Adverse Reactions: Allergies Allergy/AdvReac Type Severity Reaction Status Date / Time hydrocodone bitartrate * Allergy Severe Rash Verified 12/31/20 17:21 [From Vicodin] iodine Allergy Severe Nausea Verified 12/31/20 17:21 Penicillins Allergy Severe Respiratory Verified 12/31/20 17:21 Sulfa (Sulfonamide Allergy Severe Respiratory Verified 12/31/20 17:21 Antibiotics) bee venom protein (honey bee) Allergy Respiratory Verified 12/31/20 17:21 - Social History Does the pt smoke?: Yes Smoking Status: Current every day smoker Does the pt drink ETOH?: No Does the pt have substance abuse?: No - Immunizations Immunizations are current?: Yes - POLST Patient has POLST: No POLST Status: Full Code PD ED PE NORMAL - Vitals Vital signs reviewed: Yes - General General: Alert and oriented X 3, No acute distress - HEENT HEENT: PERRL, EOMI - Neck Neck: Supple, no meningeal sign, No bony TTP - Cardiac Cardiac: RRR, No murmur - Abdomen Abdomen: Non tender - Back Back: No CVA TTP, No spinal TTP - Derm Derm: Normal color, Warm and dry - Extremities Extremities: No edema, No calf tenderness / cord - Neuro Neuro: Alert and oriented X 3, outcomes analyst 2-12 intact, No motor deficit, No sensory deficit, Normal speech Eye Opening: Spontaneous Motor: Obeys Commands Verbal: Oriented GCS Score: 15 Results - Vitals Vitals: Vital Signs - 24 hr 12/31/20 17:21 Temperature 36.8 C Heart Rate 65 Respiratory 16 Rate Blood Pressure 144/83 H O2 Saturation 95 Oxygen O2 Source Room air - EKG (time done) 1751 Rate: Rate (enter#) (61) Rhythm: NSR [place]: Normal Intervals: Normal MA QRS: Normal Ischemia: Non specific changes - Labs Labs: Laboratory Tests 12/31/20 12/31/20 12/31/20 17:44 17:44 17:44 WBC 7.5 RBC 4.68 Hgb 14.0 Hct 42.4 MCV 90.6 MCH 29.9 MCHC 33.0 RDW 13.9 Plt Count 461 H MPV 9.9 Neut # (Auto) 4.7 Lymph # (Auto) 1.9 [place] # (Auto) 0.7 Eos # (Auto) 0.2 Baso # (Auto) 0.1 Absolute Nucleated RBC 0.00 Nucleated RBC % 0.0 Sodium 139 Potassium 4.0 Chloride 104 Carbon Dioxide 26 Anion Gap 9.0 BUN 19 Creatinine 0.5 Estimated GFR (MDRD) 124 Glucose 139 H Calcium 9.5 Magnesium 2.1 Total Bilirubin 0.9 AST 27 ALT 60 Alkaline Phosphatase 154 H Troponin I High Sens 4.8 Total Protein 7.1 Albumin 4.1 Globulin 3.0 Albumin/Globulin Ratio 1.4 Lipase 26 PD MEDICAL DECISION MAKING - ED course ED course: 65-year-old woman presents with vaguely defined dizziness, it is neither of vertigo nor a disequilibrium. Her neurologic exam is normal, head CT normal, labs normal. Ambulating fine here without issue. Departure - Departure Disposition: 01 Home, Self Care Clinical Impression: Dizziness Headache Qualifiers: Headache type: unspecified Headache chronicity pattern: acute headache Intractability: not intractable Qualified Code(s): R51.9 - Headache, unspecified Condition: Good Record reviewed to determine appropriate education?: Yes Instructions: ED Dizziness [facility] Comments: Return for new or worsening symptoms, follow-up with your doctor in a few days for recheck.
[2020-12-31 18:01] LABS: ALBUMIN 4.1 g/dL (3.2-5.5); ALBUMIN/GLOBULIN RATIO 1.4 (1.0-2.2); BILIRUBIN,TOTAL 0.9 mg/dL (0.2-1.0); CALCIUM 9.5 mg/dL (8.5-10.3); CREATININE 0.5 mg/dL (0.4-1.0); MAGNESIUM 2.1 mg/dL (1.7-2.8); TOTAL PROTEIN 7.1 g/dL (6.7-8.2)
--- NOTE | 2020-12-31 18:36 | CT Report ---
PROCEDURE: HEAD WO INDICATIONS: headache TECHNIQUE: Noncontrast 4.5 mm thick angled axial sections acquired from the foramen magnum to the vertex. For r adiation dose reduction, the following was used: automated exposure control, adjustment of mA and/or kV according to patient size. COMPARISON: None. FINDINGS: Image quality: Excellent. CSF spaces: Basal cisterns are patent. No extra-axial fluid collections. Ventricles are normal in size and shape. Brain: No midline shift. No intracranial masses or hemorrhage. Glover-white matter interface is norm al. Skull and face: Calvarium and visualized facial bones are intact, without suspicious lesions. Sinuses: Visualized sinuses and mastoids are clear. IMPRESSION: No acute intracranial abnormalities. Reviewed by: Ricardo Patel MD on 12/31/2020 6:35 PM PDT Approved by: Ricardo Patel MD on 12/31/2020 6:35 PM PDT Station ID: [id number]
[2020-12-31 19:22] VITALS: BP 125/99
== END 2020-12-31 19:22 | disposition home or self-care (01) ==
LOC: ED 17:17
DX: R42 Dizziness and giddiness (principal); R51.9 Headache, unspecified; R11.0 Nausea; I10 Essential (primary) hypertension; I25.10 Atherosclerotic heart disease of native coronary artery without angina pectoris; Z95.5 Presence of coronary angioplasty implant and graft; J44.9 Chronic obstructive pulmonary disease, unspecified; F17.200 Nicotine dependence, unspecified, uncomplicated; Z79.02 Long term (current) use of antithrombotics/antiplatelets; Z79.82 Long term (current) use of aspirin
CPT/HCPCS: 36415; 80053; 83690; 83735; 84484; 85025; 93005; 99283; 99284

== ENCOUNTER 2021-04-11 09:45 | Outpatient (CLI) | payer MEDICARE, OTHER ==
--- NOTE | 2021-04-11 11:03 | CT Report ---
PROCEDURE: CHEST WO INDICATIONS: MULTIPLE LUNG NODULES TECHNIQUE: Noncontrast images were acquired from the pulmonary apices to the posterior costophrenic angles. Mul tiplanar MIP reformats were then acquired. For radiation dose reduction, the following was used: au tomated exposure control, adjustment of mA and/or kV according to patient size. COMPARISON: 02/07/2014 FINDINGS: Image quality: Excellent. Lungs and pleura: There is a 1.5 x 1.3 cm spiculated mass in the left apex. There is a 6 mm peripher al left upper lobe irregular nodule seen on axial image 82, series 4. This is also new. There is also a new irregular 7 mm left upper lobe pulmonary nodule seen on axial image 92, series 4. There is a 5 mm right upper lobe groundglass nodule seen on axial image 103, series 4. This has been stable since 2013 and is compatible with a benign process. Bilateral centrilobular pulmonary emphysematous change s are present. No focal consolidations. Patchy dependent bibasilar atelectasis. No septal thickening or nodularity. No pleural effusions or pneumothorax. Central and peripheral airways are patent and n ormal in caliber. Mediastinum: Heart size is normal. Atherosclerotic calcifications of the coronary arteries. No peric ardial effusion. No mediastinal adenopathy by size criteria. Thoracic aorta and central pulmonary a rteries are normal in size. Esophagus is normal in caliber. No hiatal hernia. Bones and chest wall: No suspicious bony lesions. No acute vertebral body compression fractures. N o axillary or supraclavicular adenopathy by size criteria. The thyroid is normal in size and there a re no incidental findings. Abdomen: Visualized upper abdominal solid organs and bowel loops appear normal in the absence of con trast. IMPRESSION: 1. There is a 1.5 x 1.3 cm spiculated mass in the left lung apex with 2 additional irregular nodule s een in the left upper lobe measuring 7 mm and 5 mm in size. These 2 smaller nodules are immediately a djacent to each other. Findings are concerning for malignancy. However, given its multiplicity, and a cute inflammatory/infectious process not excluded if clinically appropriate. Recommend short interval follow-up CT in [address] or tissue sampling/biopsy. 2. Centrilobular pulmonary emphysema. 3. Atherosclerotic vascular disease. CLINICAL RECOMMENDATION STATEMENTS: In patients <35 years with an ITN detected on CT, MRI, or extrathyroidal ultrasound, the Committee re commends further evaluation with dedicated thyroid ultrasound if the nodule is ?1 cm and has no suspi cious imaging features, and if the patient has normal life expectancy. In patients ?35 years with an ITN detected on CT, MRI, or extrathyroidal ultrasound, the Committee re commends further evaluation with dedicated thyroid ultrasound if the nodule is ?1.5 cm and has no fredy picious imaging features, and if the patient has normal life expectancy. (ACR, 2014) Reviewed by: Ajay Flores MD on 04/11/2021 11:02 AM PDT Approved by: Ajay Flores MD on 04/11/2021 11:02 AM PDT Station ID: [id number]
== END 2021-04-11 09:46 | disposition home or self-care (01) ==
LOC: DI 09:45
PROVIDERS: ATTEND Internal Medicine
DX: R91.8 Other nonspecific abnormal finding of lung field (principal); J43.2 Centrilobular emphysema; I70.90 Unspecified atherosclerosis

== ENCOUNTER 2021-04-24 16:46 | Emergency (ER) | payer MEDICARE, OTHER ==
--- NOTE | 2021-04-24 18:22 | ED Physician Documentation ---
History of Present Illness - Stated complaint Stated Complaint: NASAL DRIP/HEADACHE/CONGESTION - Chief complaint Chief Complaint: Heent - Additonal information Additional information: 65-year-old female presents emergency department for evaluation of 3 weeks of nasal congestion. She reports a chronic drip that feels like a faucet is always turned on. She has been taking Sudafed daily for the last 3 weeks without resolution of symptoms. There is no fevers or cough. Denies dyspnea or shortness of breath. She unfortunately had a CT scan of her chest completed on 11 April that is concerning for lung cancer. She is following up with her primary doctors regarding this. 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 Positive daily tobacco use Review of Systems Constitutional: denies: Fever, Chills Eyes: reports: Reviewed and negative Ears: reports: Loss of hearing Nose: reports: Rhinorrhea / runny nose, Congestion Throat: reports: Reviewed and negative Cardiac: reports: Reviewed and negative Respiratory: reports: Reviewed and negative GI: reports: Reviewed and negative : reports: Reviewed and negative PD PAST MEDICAL HISTORY - Past Medical History Past Medical History: Yes Cardiovascular: None, Hypertension, Angina, [place] Respiratory: Asthma, COPD, Sleep apnea, CPAP use Neuro: None Endocrine/Autoimmune: HyPOthyroidism GI: GERD 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 : 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 HEENT: Chronic sinusitis Psych: None, Anxiety Musculoskeletal: Osteoarthritis Derm: None - Past Surgical History Past Surgical History: Yes General: Colonoscopy /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: Hysterectomy Cardiovascular: Coronary stent, Angioplasty Neuro: Other HEENT: Tonsil/Adenoidectomy - Present Medications Home Medications: Ambulatory Orders Medication Instructions Recorded Confirmed Atorvastatin Calcium 80 mg PO DAILY 06/29/17 04/24/21 Clopidogrel [Plavix] 75 mg PO DAILY 06/29/17 04/24/21 Metoprolol Succinate 25 mg PO BID 06/29/17 04/24/21 Aspirin EC [Ecotrin] 81 mg PO DAILY 12/31/20 04/24/21 Benzonatate [Tessalon] 100 mg PO TID PRN 12/31/20 04/24/21 Cyclobenzaprine [Flexeril] 10 mg PO TID 12/31/20 04/24/21 Ergocalciferol [Vitamin D2] 50,000 unit PO PRN PRN 12/31/20 04/24/21 Levothyroxine Sodium [Synthroid] 75 mcg PO DAILY 12/31/20 04/24/21 Loratadine [Claritin] 10 mg PO DAILY 12/31/20 04/24/21 Montelukast [Singulair] 10 mg PO DAILY 12/31/20 04/24/21 Pantoprazole [Protonix] 40 mg PO DAILY 12/31/20 04/24/21 Pseudoephedrine [Sudafed] 60 mg PO QID PRN 12/31/20 04/24/21 - Allergies Allergies/Adverse Reactions: Allergies Allergy/AdvReac Type Severity Reaction Status Date / Time hydrocodone bitartrate * Allergy Severe Rash Verified 04/24/21 17:12 [From Vicodin] iodine Allergy Severe Nausea Verified 04/24/21 17:12 Penicillins Allergy Severe Respiratory Verified 04/24/21 17:12 Sulfa (Sulfonamide Allergy Severe Respiratory Verified 04/24/21 17:12 Antibiotics) bee venom protein (honey bee) Allergy Respiratory Verified 04/24/21 17:12 - Social History Does the pt smoke?: Yes Smoking Status: Current every day smoker Does the pt drink ETOH?: No Does the pt have substance abuse?: No - Immunizations Immunizations are current?: Yes - POLST Patient has POLST: No POLST Status: Full Code PD ED PE NORMAL - General General: Alert and oriented X 3, No acute distress - HEENT HEENT: PERRL, Moist mucous membranes, Pharynx benign, Other (Clear rhinorrhea bilateral nares. No frontal or maxillary sinus tenderness to palpation.) - Neck Neck: Supple, no meningeal sign - Cardiac Cardiac: RRR, No murmur - Respiratory Respiratory: Clear bilaterally - Abdomen Abdomen: Normal bowel sounds, Soft, Non tender, Non distended Results - Vitals Vitals: Vital Signs - 24 hr 04/24/21 17:08 Temperature 36.2 C L Heart Rate 75 Blood Pressure 125/71 O2 Saturation 94 Oxygen O2 Source Room air PD MEDICAL DECISION MAKING - ED course Complexity details: d/w patient ED course: 65-year-old female here with 3 weeks of clear sinus congestion runny nose. She has been taking Sudafed twice daily for this duration without resolution of symptoms. No fevers. Denies any cough loss of taste or smell however she is not vaccinated for COVID-19. Covid screen is pending. I suspect that she has a component of rebound congestion given now chronic use of Sudafed and have advised her to taper off of Sudafed. Recommend she continue the daily loratadine as well as implement daily sinus rinses and Flonase. Given lack of fevers, cough or sinus tenderness will defer antibiotics at this time as my suspicion for bacterial process is quite low. Continue follow-up with PCP. Halle aguilar return precautions discussed. Departure - Departure Disposition: 01 Home, Self Care Clinical Impression: Chronic nasal congestion Condition: Stable Record reviewed to determine appropriate education?: Yes Comments: Evelia the sinus congestion you have may be rebound congestion from daily use of Sudafed. I do recommend that you attempt to taper off the Sudafed over the next few days. I would like you to do saline nasal rinses every day in the shower followed by Flonase nasal spray once out of the shower. This mild steroid will help reduce congestion. Because you are not vaccinated we are screening you for COVID-19. We will only call you if the results are positive. The recent CT scan you had completed is concerning for lung cancer. I do recommend that you follow your physicians recommendations for further follow-up testing and or biopsy. If at any point you develop fevers or are short of breath or have chest pain then please return immediately to the ER for a second evaluation.
[2021-04-24 18:41] VITALS: BP 128/70
== END 2021-04-24 18:41 | disposition home or self-care (01) ==
LOC: ED 16:46
DX: R09.81 Nasal congestion (principal); R09.82 Postnasal drip; Z20.822 Contact with and (suspected) exposure to COVID-19; R91.8 Other nonspecific abnormal finding of lung field; J44.9 Chronic obstructive pulmonary disease, unspecified; F17.200 Nicotine dependence, unspecified, uncomplicated; I10 Essential (primary) hypertension; I25.10 Atherosclerotic heart disease of native coronary artery without angina pectoris; I25.2 Old myocardial infarction; Z95.5 Presence of coronary angioplasty implant and graft; Z79.02 Long term (current) use of antithrombotics/antiplatelets
CPT/HCPCS: 99283; 99284; U0004

== ENCOUNTER 2021-05-06 07:00 | Outpatient (CLI) | payer MEDICARE, OTHER ==
[2021-05-06 13:55] LABS: BASOPHILS # (AUTO) 0.1 10^3/uL (0.0-0.1); EOSINOPHILS # (AUTO) 0.3 10^3/uL (0.0-0.7); EOSINOPHILS % (AUTO) 3.1 %; HCT - HEMATOCRIT 46.9 % (37.0-47.0); HGB - HEMOGLOBIN 15.5 g/dL (12.0-16.0); LYMPHOCYTES # (AUTO) 2.5 10^3/uL (1.5-3.5); LYMPHOCYTES % (AUTO) 26.9 %; MEAN CORPUSCULAR HEMOGLOBIN 29.6 pg (27.0-31.0); MEAN CORPUSCULAR VOLUME 89.7 fL (81.0-99.0); MONOCYTES # (AUTO) 0.6 10^3/uL (0.0-1.0); MONOCYTES % (AUTO) 6.9 %; NEUTROPHILS # (AUTO) 5.8 10^3/uL (1.5-6.6); NEUTROPHILS % (AUTO) 61.8 %; PLT - PLATELET COUNT 441 10^3/uL (130-450); RED BLOOD COUNT 5.23 10^6/uL (4.20-5.40); RED CELL DISTRIBUTION WIDTH 13.4 % (12.0-15.0); WHITE BLOOD COUNT 9.3 x10^3/uL (4.8-10.8)
[2021-05-06 14:15] LABS: ALBUMIN 4.4 g/dL (3.2-5.5); ALBUMIN/GLOBULIN RATIO 1.5 (1.0-2.2); ALKALINE PHOSPHATASE 144 IU/L (42-121); ALT ALANINE AMINOTRANSFERASE 29 IU/L (10-60); AST ASPARTATE AMINOTRANSFERASE 22 IU/L (10-42); BILIRUBIN,TOTAL 0.8 mg/dL (0.2-1.0); BUN - BLOOD UREA NITROGEN 19 mg/dL (6-20); CALCIUM 9.2 mg/dL (8.5-10.3); CARBON DIOXIDE - CO2 26 mmol/L (21-32); CHLORIDE 104 mmol/L (101-111); CHOL/HDL RATIO 3.5 (<4.4); CHOLESTEROL 154 mg/dL; CREATININE 0.6 mg/dL (0.4-1.0); GAMMA GLUTAMYL TRANSPEPTIDASE 97 IU/L (8-38); GFR - MDRD 100 (>89); GLUCOSE 122 mg/dL (70-100); HDL CHOLESTEROL 44 mg/dL; LDL CHOLESTEROL,CALCULATED 84 mg/dL; LDL/HDL RATIO 1.9 (<4.4); POTASSIUM 4.3 mmol/L (3.5-5.0); SODIUM 141 mmol/L (135-145); TOTAL PROTEIN 7.3 g/dL (6.7-8.2); TRIGLYCERIDES 132 mg/dL; VLDL CHOLESTEROL 26 mg/dL
[2021-05-06 14:26] LABS: THYROID STIMULATING HORMONE 1.9 uIU/mL (0.34-5.60)
== END 2021-05-06 23:59 ==
LOC: LAB 07:00
PROVIDERS: ATTEND Internal Medicine
DX: I10 Essential (primary) hypertension (principal); E78.5 Hyperlipidemia, unspecified; E03.9 Hypothyroidism, unspecified
CPT/HCPCS: 36415; 80053; 80061; 82977; 83721; 84443; 85025

== ENCOUNTER 2021-05-09 14:08 | Outpatient (CLI) | payer MEDICARE, OTHER | END 2021-05-09 14:09 | disposition home or self-care (01) | LOC: LAB 14:08 | PROVIDERS: ATTEND Internal Medicine | DX: R79.89 Other specified abnormal findings of blood chemistry (principal) | CPT/HCPCS: 80074; 81599 ==

== ENCOUNTER 2021-05-21 08:49 | Outpatient (CLI) | payer MEDICARE, OTHER ==
[2021-05-21] MEDS ORDERED: ALBUTEROL 1 PUFF INH STA (11:36)
== END 2021-05-21 08:50 | disposition home or self-care (01) ==
LOC: RT 08:49
PROVIDERS: ATTEND Thoracic Surgery (Cardiothoracic Vascular Surgery)
DX: Z01.811 Encounter for preprocedural respiratory examination (principal); R91.8 Other nonspecific abnormal finding of lung field; Z95.5 Presence of coronary angioplasty implant and graft
CPT/HCPCS: 94060; 94727; 94729

== ENCOUNTER 2021-05-28 11:17 | Outpatient (CLI) | payer MEDICARE, OTHER ==
--- NOTE | 2021-06-05 09:02 | Mammography Report ---
BILATERAL DIGITAL SCREENING MAMMOGRAM 3D/2D: 05/28/2021 CLINICAL: Routine screening. Comparison is made to exam dated: 03/09/2020 mammogram - [facility]. There are sca ttered fibroglandular elements in both breasts. There is a benign lymph node in the left breast. No significant masses, calcifications, or other findings are seen in either breast. There has been no significant interval change. IMPRESSION: BENIGN There is no mammographic evidence of malignancy. A 1 year screening mammogram is recommended. This exam was interpreted at Station ID: [id number]. NOTE: For mammograms, a report in lay terms will be sent to the patient. Approximately 15% of breast malignancies will not be visualized mammographically. In the management of a palpable breast mass, a negative mammogram must not discourage biopsy of a clinically suspicious lesion. Electronically Signed By: Reshma lópez/penrad:06/04/2021 09:17:45 ACR BI-RADS Category 2: Benign Finding(s) 3342F PARENCHYMAL PATTERN: (A) - The breast(s) demonstrate(s) scattered fibroglandular densities. BI-RADS CATEGORY: (2) - 2 RECOMMENDATION: (ANNUAL) - Recommend routine annual screening mammography. [id number] 1 year screening LATERALITY: (B)
== END 2021-05-28 11:18 | disposition home or self-care (01) ==
LOC: DI 11:17
PROVIDERS: ATTEND Nurse Practitioner Family
DX: Z12.31 Encounter for screening mammogram for malignant neoplasm of breast (principal)

== ENCOUNTER 2021-05-31 14:02 | Outpatient (CLI) | payer MEDICARE, OTHER | END 2021-05-31 14:03 | disposition home or self-care (01) | LOC: COV 14:02 | PROVIDERS: ATTEND Thoracic Surgery (Cardiothoracic Vascular Surgery) | DX: Z01.812 Encounter for preprocedural laboratory examination (principal); R91.8 Other nonspecific abnormal finding of lung field; Z95.5 Presence of coronary angioplasty implant and graft; Z20.822 Contact with and (suspected) exposure to COVID-19 ==

== ENCOUNTER 2021-06-16 15:49 | Emergency (ER) | payer MEDICARE, OTHER ==
--- NOTE | 2021-06-16 15:59 | ED Physician Documentation ---
History of Present Illness - Stated complaint Stated Complaint: SOA/L SIDE PX - History obtained from History obtained from: Patient - Additonal information Additional information: She had a left-sided VATS for a small lung cancer 2 days ago. She has a drain in place. She was doing well postop but suddenly today developed severe sharp left-sided chest pain near the breast and radiating to the back associated with increased shortness of breath. She has had some small hemoptysis and some small clots going into her thoracic drain. Denies pedal edema or calf pain. 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: Hysterectomy Cardiovascular: Coronary stent, Angioplasty Neuro: Other HEENT: Tonsil/Adenoidectomy - Present Medications Home Medications: Ambulatory Orders Medication Instructions Recorded Confirmed Atorvastatin Calcium 80 mg PO DAILY 06/29/17 04/24/21 Clopidogrel [Plavix] 75 mg PO DAILY 06/29/17 04/24/21 Metoprolol Succinate 25 mg PO BID 06/29/17 04/24/21 Aspirin EC [Ecotrin] 81 mg PO DAILY 12/31/20 04/24/21 Benzonatate [Tessalon] 100 mg PO TID PRN 12/31/20 04/24/21 Cyclobenzaprine [Flexeril] 10 mg PO TID 12/31/20 04/24/21 Ergocalciferol [Vitamin D2] 50,000 unit PO PRN PRN 12/31/20 04/24/21 Levothyroxine Sodium [Synthroid] 75 mcg PO DAILY 12/31/20 04/24/21 Loratadine [Claritin] 10 mg PO DAILY 12/31/20 04/24/21 Montelukast [Singulair] 10 mg PO DAILY 12/31/20 04/24/21 Pantoprazole [Protonix] 40 mg PO DAILY 12/31/20 04/24/21 Pseudoephedrine [Sudafed] 60 mg PO QID PRN 12/31/20 04/24/21 HYDROmorphone [Dilaudid] 2 mg PO Q4H PRN #15 tablet 06/16/21 - Allergies Allergies/Adverse Reactions: Allergies Allergy/AdvReac Type Severity Reaction Status Date / Time hydrocodone bitartrate * Allergy Severe Rash Verified 06/16/21 15:57 [From Vicodin] iodine Allergy Severe Nausea Verified 06/16/21 15:57 Penicillins Allergy Severe Respiratory Verified 06/16/21 15:57 Sulfa (Sulfonamide Allergy Severe Respiratory Verified 06/16/21 15:57 Antibiotics) bee venom protein (honey bee) Allergy Respiratory Verified 06/16/21 15:57 - Social History Does the pt smoke?: Yes Smoking Status: Current every day smoker Does the pt drink ETOH?: No Does the pt have substance abuse?: No - Immunizations Immunizations are current?: Yes - POLST Patient has POLST: No POLST Status: Full Code PD ED PE NORMAL - Vitals Vital signs reviewed: Yes - General General: Alert and oriented X 3 (She appears anxious and breathless with good pulse oximetry but is tachycardic) - HEENT HEENT: PERRL, Pharynx benign - Neck Neck: Supple, no meningeal sign, No bony TTP - Cardiac Cardiac: RRR, No murmur - Respiratory Respiratory: Other (Tachypneic but lung sounds are relatively clear with rhonchi at the left base) - Abdomen Abdomen: Soft, Non tender - Extremities Extremities: No edema, No calf tenderness / cord - Neuro Neuro: Alert and oriented X 3, Normal speech Results - Vitals Vitals: Vital Signs - 24 hr 06/16/21 06/16/21 06/16/21 15:57 16:00 16:06 Temperature 36.7 C Heart Rate 100 90 Respiratory 16 Rate Blood Pressure 119/75 116/84 H O2 Saturation 96 95 96 06/16/21 06/16/21 06/16/21 17:00 17:30 18:00 Temperature Heart Rate 80 56 L 61 Respiratory 15 17 Rate Blood Pressure 140/83 H 122/74 135/75 H O2 Saturation 91 L 94 93 Oxygen O2 Source Nasal cannula Oxygen Flow Rate 2 - EKG (time done) 1606 Rate: Rate (enter#) (83) Rhythm: NSR Banquete: Normal Intervals: Normal OH QRS: Normal Ischemia: Non specific changes. No: ST elevation c/w ischemia, ST depression - Labs Labs: Laboratory Tests 06/16/21 06/16/21 16:01 16:01 WBC 8.9 RBC 4.89 Hgb 14.5 Hct 44.0 MCV 90.0 MCH 29.7 MCHC 33.0 RDW 13.9 Plt Count 501 H MPV 9.9 Neut # (Auto) 5.5 Lymph # (Auto) 2.3 Obion # (Auto) 0.8 Eos # (Auto) 0.3 Baso # (Auto) 0.1 Absolute Nucleated RBC 0.00 Nucleated RBC % 0.0 Sodium 136 Potassium 3.8 Chloride 101 Carbon Dioxide 23 Anion Gap 12.0 BUN 12 Creatinine 0.6 Estimated GFR (MDRD) 100 Glucose 148 H Calcium 9.3 PD MEDICAL DECISION MAKING - ED course ED course: 65-year-old woman postop from VATS presents with severe postoperative pain. Differential diagnosis also includes pneumothorax and PE, and both of these were assessed for with chest x-ray and subsequently a CT without pertinent positive findings, only the expected postoperative findings. She was feeling much better in all but pain-free after 1 mg of Dilaudid IV. I tried to get a hold of her surgeon who was unavailable. That said it is clear that she went home without any painkillers except for gabapentin which she did not fill. This is because she declined a prescription for oxycodone. She did feel that Dilaudid was helpful and I discussed with her that after major surgery like this, she would probably need some narcotic analgesia and she is understanding. Departure - Departure Disposition: Home, Self Care Clinical Impression: Chest pain Qualifiers: Chest pain type: unspecified Qualified Code(s): R07.9 - Chest pain, unspecified Condition: Good Record reviewed to determine appropriate education?: Yes Instructions: ED Chest Pain Pleurisy Prescriptions: HYDROmorphone [Dilaudid] 2 mg PO Q4H PRN #15 tablet PRN Reason: Pain Comments: Prescription sent to [facility] pharmacy. Follow-up with your surgeon as scheduled. Return for new or worsening symptoms. I am prescribing a short course of narcotic pain medication for you. These are potentially dangerous and addictive medications that should be used carefully. These medications may constipate you. Take an [id number]-[id number] stool softener (docusate) twice daily with plenty of water while taking these medications. If you go 24 hours without a bowel movement, take [id number] miralax, per package instructions. Do not drink or drive while taking these medications. If you received narcotic or sedating medications while in the emergency department, do not drive for 24 hours. Store this medication in a safe, secure place and out of reach of children. It is a violation of federal law to give or sell this medication to another person or to use in a manner other than prescribed. The ED will not refill narcotic prescriptions, including prescriptions lost or stolen. To dispose of unwanted medications: 1. [facility] [address] in [place] has a medication drop box. They accept prescription medications (in pill form) Thursday through Thursday 9:00 a.m. to 5:00 p.m. 2. [facility] [employer] accepts prescription medications (in pill form only) for disposal year round. Call for more information. 3. Contact the [facility] for the next [facility] sponsored prescription drug collection event. , [phone], or [phone]; Note that many narcotic pain relievers also contain Tylenol/acetaminophen. Please ensure that your total dose of acetaminophen from all sources does not exceed 3 g (3000 mg) per day. Discharge Date/Time: 06/16/21 18:28
[2021-06-16 16:09] LABS: BASOPHILS # (AUTO) 0.1 10^3/uL (0.0-0.1); BASOPHILS % (AUTO) 0.6 %; EOSINOPHILS # (AUTO) 0.3 10^3/uL (0.0-0.7); HGB - HEMOGLOBIN 14.5 g/dL (12.0-16.0); LYMPHOCYTES # (AUTO) 2.3 10^3/uL (1.5-3.5); LYMPHOCYTES % (AUTO) 25.3 %; MEAN CORPUSCULAR HEMOGLOBIN 29.7 pg (27.0-31.0); MEAN PLATELET VOLUME 9.9 fL (7.9-10.8); MONOCYTES # (AUTO) 0.8 10^3/uL (0.0-1.0); NEUTROPHILS # (AUTO) 5.5 10^3/uL (1.5-6.6); NEUTROPHILS % (AUTO) 61.4 %; PLT - PLATELET COUNT 501 10^3/uL (130-450); RED BLOOD COUNT 4.89 10^6/uL (4.20-5.40); RED CELL DISTRIBUTION WIDTH 13.9 % (12.0-15.0); WHITE BLOOD COUNT 8.9 x10^3/uL (4.8-10.8)
[2021-06-16] MEDS: HYDROmorphone 1 MG/ML CARPUJECT IVP STA (16:12)
[2021-06-16 16:14] LABS: CALCIUM 9.3 mg/dL (8.5-10.3); CREATININE 0.6 mg/dL (0.4-1.0); POTASSIUM 3.8 mmol/L (3.5-5.0)
--- NOTE | 2021-06-16 16:19 | XRAY Report ---
PROCEDURE: Chest 1 View X-Ray INDICATIONS: dyspnea TECHNIQUE: One view of the chest was acquired. COMPARISON: 02/08/2019. Correlation is made with chest CT, 04/11/2021. FINDINGS: Surgical changes and devices: There is a left-sided chest tube seen laterally, with the tip pointed s uperiorly. There is a lung staple line seen superiorly. Lungs and pleura: On the semiupright images, no large pneumothorax or large pleural effusions can be seen. No focal infiltrates are seen. Mediastinum: Mediastinal contours appear normal. Heart size is normal. Bones and chest wall: No suspicious bony lesions. Age-appropriate degenerative changes are seen. S oft tissue gas is seen on the right, associated with the chest tube. IMPRESSION: Postoperative study with a left staple line involving the left upper lung, with a postoperative chest tube with associated soft tissue gas. No pneumothorax is seen. Reviewed by: Finn Fermin MD on 06/16/2021 3:18 PM [facility] Approved by: Finn Fermin MD on 06/16/2021 3:18 PM [facility] Station ID: [id number]
[2021-06-16] MEDS ORDERED: IOVERSOL 320 100 ML VIAL IVP ONE (16:23)
[2021-06-16] MEDS: IOVERSOL 320 100 ML VIAL IVP ONE (17:01)
--- NOTE | 2021-06-16 17:06 | CT Report ---
PROCEDURE: ANGIO CHEST W/WO INDICATIONS: PE protocol. post op dyspnea, L side CP CONTRAST: IV CONTRAST: Optiray 320 ml: 80 PO CONTRAST: *NO PO CONTRAST TECHNIQUE: After the administration of intravenous contrast, 2 mm axial images were acquired from the pulmonary apices to the posterior costophrenic angles during the arterial phase. In addition, 1 mm lung kernel and 5 mm soft tissue kernel reconstructions were performed. 3-dimensional coronal oblique maximum int ensity projection (MIP) reformats, 8 mm axial MIP, and 5 mm coronal and sagittal MPR reformats were t hen performed through the thorax. For radiation dose reduction, the following was used: automated exp osure control, adjustment of mA and/or kV according to patient size. COMPARISON: Prior chest CT, 04/11/2021. Correlation is made with the accompanying chest radiograph, 1 08/16/2020. FINDINGS: Image quality: Excellent. Pulmonary arteries: Pulmonary arteries are normal in size, and demonstrate no intraluminal filling d efects to suggest central pulmonary embolism. Lungs and pleura: Postoperative changes have taken place involving the left upper lobe, with a staple line. Areas of lung consolidation can be seen along the sonia. There is a left-sided chest tube, w hich largely runs along the left oblique fissure. There is a trace amount of pleural gas seen. Centrilobular emphysematous changes are seen, which are more prominent at the lung apices than at the lung bases. No pleural effusions. Mild dependent atelectasis can be seen at the right lung base. Central and per ipheral airways are patent. Mediastinum: Heart size is normal, without pericardial effusion. There is at least moderate coronary artery calcification seen. No mediastinal or hilar adenopathy. Thoracic aorta is normal in caliber and enhancement. Esophagus is normal in caliber, without hiatal hernia. Bones and chest wall: Left-sided soft tissue gas can be seen. No suspicious bony lesions. There is accentuated thoracic kyphosis. Age-appropriate degenerative changes are seen. Ribs and thoracic sp ine appear intact throughout. No axillary or supraclavicular adenopathy. The thyroid is normal in s ize and there are no incidental findings. Abdomen: There is a low-density right adrenal nodule seen laterally that measures 1.4 cm and -7 Houns field units. The visualized portions of the upper abdominal structures are otherwise within normal li mits. IMPRESSION: Negative for pulmonary embolism. Interval postoperative change of the right lung apex, with a staple line, with lung consolidation adria ng the staple line. There is a left-sided chest tube, which runs along the left oblique fissure. A trace amount of pleura l gas can be seen. There is associated left-sided soft tissue gas. Incidental note is made of: At least moderate coronary artery calcification Emphysematous change Right-sided adrenal adenoma Accentuated thoracic kyphosis Reviewed by: Finn Fermin MD on 06/16/2021 4:05 PM [place] Approved by: Finn Fermin MD on 06/16/2021 4:05 PM [facility] Station ID: [id number]
[2021-06-16 18:09] VITALS: BP 135/75
[2021-06-16] MEDS: GABAPENTIN 100 MG CAPSULE PO STA (18:21)
== END 2021-06-16 18:28 | disposition home or self-care (01) ==
LOC: ED 15:49
DX: R07.89 Other chest pain (principal); G89.18 Other acute postprocedural pain; I10 Essential (primary) hypertension; Z95.5 Presence of coronary angioplasty implant and graft; F17.200 Nicotine dependence, unspecified, uncomplicated
CPT/HCPCS: 36415; 71045; 71275; 80048; 85025; 93005; 96374; 99284; 99285; A9270; J1170; Q9967

== ENCOUNTER 2021-07-14 08:49 | Emergency (ER) | payer MEDICARE, OTHER ==
[2021-07-14] MEDS ORDERED: KETOROLAC 30 MG/ML VIAL IVP STA (09:15)
--- NOTE | 2021-07-14 09:20 | ED Physician Documentation ---
PD HPI CHEST PAIN - Stated complaint Stated Complaint: CHEST/BACK PX - Chief complaint Chief Complaint: Cardiac - History obtained from History obtained from: Patient - Additional information Additional information: 66-year-old woman with history of coronary disease, tobacco abuse and had a lobectomy on her left lung a little over a month ago has had fairly persistent sharp chest pain since and is on gabapentin and tramadol for same. The pain is like a band around her lower chest and near the left breast. Last night she had a coughing episode and now has increased pain. She denies shortness of breath. Pain is also worse with twisting and bending. She denies fevers but notes that her usual temperature is 96-97 Fahrenheit so 37.4 here is high for her. She had a small amount of yellow sputum this morning but generally the cough has been dry. She is not vaccinated against Covid on the advice of her physician. Review of Systems Ten Systems: 10 systems reviewed and negative Constitutional: denies: Fever, Chills Cardiac: reports: Chest pain / pressure Respiratory: reports: Cough. denies: Dyspnea PD PAST MEDICAL HISTORY - Past Medical History Cardiovascular: None, Hypertension, Angina, [place] Respiratory: Asthma, COPD, Sleep apnea, CPAP use Neuro: None Endocrine/Autoimmune: HyPOthyroidism GI: GERD SPRING INTERN: Other : None HEENT: Chronic sinusitis Psych: None, Anxiety Musculoskeletal: Osteoarthritis Derm: None - Past Surgical History Past Surgical History: Yes General: Colonoscopy /SPRING INTERN: Hysterectomy Cardiovascular: Coronary stent, Angioplasty Neuro: Other HEENT: Tonsil/Adenoidectomy - Present Medications Home Medications: Ambulatory Orders Medication Instructions Recorded Confirmed Atorvastatin Calcium 80 mg PO DAILY 06/29/17 07/14/21 Clopidogrel [Plavix] 75 mg PO DAILY 06/29/17 07/14/21 Metoprolol Succinate 25 mg PO BID 06/29/17 07/14/21 Aspirin EC [Ecotrin] 81 mg PO DAILY 12/31/20 07/14/21 Benzonatate [Tessalon] 100 mg PO TID PRN 12/31/20 07/14/21 Cyclobenzaprine [Flexeril] 10 mg PO TID PRN 12/31/20 07/14/21 Ergocalciferol [Vitamin D2] 50,000 unit PO PRN PRN 12/31/20 07/14/21 Levothyroxine Sodium [Synthroid] 75 mcg PO DAILY 12/31/20 07/14/21 Loratadine [Claritin] 10 mg PO DAILY 12/31/20 07/14/21 Montelukast [Singulair] 10 mg PO DAILY 12/31/20 07/14/21 Pantoprazole [Protonix] 40 mg PO DAILY 12/31/20 07/14/21 Albuterol Sulfate [Proair Hfa 1 - 2 puffs IH Q4HR PRN 07/14/21 07/14/21 Inhaler] Gabapentin [Neurontin] 200 mg PO QID 07/14/21 07/14/21 Nitroglycerin 1 spray SL PRN PRN 07/14/21 07/14/21 traMADol [Ultram] 50 mg PO Q6H PRN 07/14/21 07/14/21 - Allergies Allergies/Adverse Reactions: Allergies Allergy/AdvReac Type Severity Reaction Status Date / Time hydrocodone bitartrate * Allergy Severe Rash Verified 07/14/21 09:05 [From Vicodin] iodine Allergy Severe Nausea Verified 07/14/21 09:05 Penicillins Allergy Severe Respiratory Verified 07/14/21 09:05 Sulfa (Sulfonamide Allergy Severe Respiratory Verified 07/14/21 09:05 Antibiotics) bee venom protein (honey bee) Allergy Respiratory Verified 07/14/21 09:05 - Social History Does the pt smoke?: Yes Smoking Status: Current every day smoker Does the pt drink ETOH?: No Does the pt have substance abuse?: No - Immunizations Immunizations are current?: Yes - POLST Patient has POLST: No POLST Status: Full Code PD ED PE NORMAL - Vitals Vital signs reviewed: Yes - General General: Alert and oriented X 3, Other (Occasional coughing, she winces with that.) - HEENT HEENT: PERRL, EOMI - Neck Neck: Supple, no meningeal sign, No bony TTP - Cardiac Cardiac: RRR, No murmur - Respiratory Respiratory: No respiratory distress, Clear bilaterally - Abdomen Abdomen: Non tender - Derm Derm: Normal color, Warm and dry - Extremities Extremities: No edema, No calf tenderness / cord - Neuro Neuro: Alert and oriented X 3, Normal speech Results - Vitals Vitals: Vital Signs - 24 hr 07/14/21 07/14/21 07/14/21 08:58 09:12 10:04 Temperature 37.4 C 37.2 C Heart Rate 82 83 77 Respiratory 20 18 19 Rate Blood Pressure 139/106 H 142/93 H 108/85 H O2 Saturation 93 93 94 07/14/21 07/14/21 12:00 13:18 Temperature 37.0 C Heart Rate 71 70 Respiratory 25 H 20 Rate Blood Pressure 129/75 128/76 O2 Saturation 94 96 Oxygen O2 Source Room air - EKG (time done) 0857 Rate: Rate (enter#) (71) Rhythm: NSR Pearce: Normal Intervals: Normal AL QRS: Normal Ischemia: Non specific changes. No: ST elevation c/w ischemia, ST depression Compare to prior EKG: Unchanged from prior EKG (no chg from 06/16/21) Computer interpretation: Agree with computer - Labs Labs: Laboratory Tests 07/14/21 07/14/21 07/14/21 09:05 09:05 09:05 WBC 4.3 L RBC 4.74 Hgb 14.0 Hct 42.0 MCV 88.6 MCH 29.5 MCHC 33.3 RDW 13.4 Plt Count 310 MPV 10.4 Neut # (Auto) 2.0 Lymph # (Auto) 1.5 Elk # (Auto) 0.7 Eos # (Auto) 0.0 Baso # (Auto) 0.0 Absolute Nucleated RBC 0.00 Nucleated RBC % 0.0 Sodium 138 Potassium 3.6 Chloride 102 Carbon Dioxide 25 Anion Gap 11.0 BUN 15 Creatinine 0.6 Estimated GFR (MDRD) 100 Glucose 130 H Calcium 8.8 Troponin I High Sens 5.4 Nasal Adenovirus (PCR) Nasal B. parapertussis DNA (PCR) Nasal Coronavir 229E PCR Nasal Coronavir HKU1 PCR Nasal Coronavir NL63 PCR Nasal Coronavir OC43 PCR Nasal Enterovir/Rhinovir PCR Nasal Influenza B PCR Nasal Influenza A PCR Nasal Parainfluen 1 PCR Nasal Parainfluen 2 PCR Nasal Parainfluen 3 PCR Nasal Parainfluen 4 PCR Nasal RSV (PCR) Nasal B.pertussis DNA PCR Nasal C.pneumoniae (PCR) Sukhdev Human Metapneumo PCR Nasal M.pneumoniae (PCR) Nasal SARS-CoV-2 (PCR) 07/14/21 09:30 WBC RBC Hgb Hct MCV MCH MCHC RDW Plt Count MPV Neut # (Auto) Lymph # (Auto) Elk # (Auto) Eos # (Auto) Baso # (Auto) Absolute Nucleated RBC Nucleated RBC % Sodium Potassium Chloride Carbon Dioxide Anion Gap BUN Creatinine Estimated GFR (MDRD) Glucose Calcium Troponin I High Sens Nasal Adenovirus (PCR) NOT DETECTED Nasal B. parapertussis DNA (PCR) NOT DETECTED Nasal Coronavir 229E PCR NOT DETECTED Nasal Coronavir HKU1 PCR NOT DETECTED Nasal Coronavir NL63 PCR NOT DETECTED Nasal Coronavir OC43 PCR NOT DETECTED Nasal Enterovir/Rhinovir PCR NOT DETECTED Nasal Influenza B PCR NOT DETECTED Nasal Influenza A PCR NOT DETECTED Nasal Parainfluen 1 PCR NOT DETECTED Nasal Parainfluen 2 PCR NOT DETECTED Nasal Parainfluen 3 PCR NOT DETECTED Nasal Parainfluen 4 PCR NOT DETECTED Nasal RSV (PCR) NOT DETECTED Nasal B.pertussis DNA PCR NOT DETECTED Nasal C.pneumoniae (PCR) NOT DETECTED Sukhdev Human Metapneumo PCR NOT DETECTED Nasal M.pneumoniae (PCR) NOT DETECTED Nasal SARS-CoV-2 (PCR) DETECTED A - Rads (name of study) CTA Chest Radiology: EMP read contemporaneously (No acute disease) PD MEDICAL DECISION MAKING - ED course ED course: 66-year-old woman with increased pleuritic postoperative chest pain since last night associated with increased cough since last night but no fevers. She is not vaccinated against Covid. Concern was for pneumonia versus PE versus continued postoperative pain and pleuritic pain related to coughing. She did test positive for Covid while here. However the negative CT pulmonary angiogram, troponin and no acute changes EKG argue against other more serious causes. Mab therapy for this patient with Covid was considered and discussed with the patient. The patient was provided the handout: ``Casirivimab plus Imdevimab Fact Sheet for Patients, Parents and Caregivers, and the information within was discussed with the patient. The patient was informed of alternatives prior to receiving Mab therapy. The patient was informed that these medications are unapproved drugs that are authorized for use under Emergency Use Authorization by the FDA. The patient will be monitored for at least 1 hour after infusion is complete. Departure - Departure Disposition: 01 Home, Self Care Clinical Impression: COVID-19 Chest pain Qualifiers: Chest pain type: intercostal pain Qualified Code(s): R07.82 - Intercostal pain Condition: Good Record reviewed to determine appropriate education?: Yes Instructions: ED Chest Pain NonCardiac Comments: You were seen today for chest pain, there is no evidence of pneumonia or pulmonary embolism. It is unclear if the chest pain is continued postoperative pain versus related to the Covid that we found you to have today. He did receive treatment for Covid with IV antibody therapy known as Regeneron. Return anytime for new or worsening symptoms. You do need to self quarantine for the next 2 weeks otherwise. You can continue your current pain medication as needed for the pain. Discharge Date/Time: 07/14/21 13:18
[2021-07-14 09:26] LABS: BASOPHILS % (AUTO) 0.9 %; EOSINOPHILS % (AUTO) 0.9 %; LYMPHOCYTES # (AUTO) 1.5 10^3/uL (1.5-3.5); LYMPHOCYTES % (AUTO) 34.6 %; MEAN CORPUSCULAR HEMOGLOBIN 29.5 pg (27.0-31.0); MEAN CORPUSCULAR HGB CONC 33.3 g/dL (32.0-36.0); MEAN CORPUSCULAR VOLUME 88.6 fL (81.0-99.0); MEAN PLATELET VOLUME 10.4 fL (7.9-10.8); MONOCYTES # (AUTO) 0.7 10^3/uL (0.0-1.0); MONOCYTES % (AUTO) 16.7 %; NEUTROPHILS % (AUTO) 46.7 %; PLT - PLATELET COUNT 310 10^3/uL (130-450); RED BLOOD COUNT 4.74 10^6/uL (4.20-5.40); RED CELL DISTRIBUTION WIDTH 13.4 % (12.0-15.0); WHITE BLOOD COUNT 4.3 x10^3/uL (4.8-10.8)
[2021-07-14] MEDS ORDERED: IOPAMIDOL-300 100 ML VIAL ONE (09:28)
[2021-07-14 09:33] LABS: CALCIUM 8.8 mg/dL (8.5-10.3); CREATININE 0.6 mg/dL (0.4-1.0); POTASSIUM 3.6 mmol/L (3.5-5.0)
[2021-07-14] MEDS ORDERED: IOPAMIDOL-300 100 ML VIAL IVP ONE (10:00)
[2021-07-14 10:33] LABS: CORONAVIRUS 229E-RESP PCR NOT DETECTED; CORONAVIRUS HKU1-RESP PCR NOT DETECTED; CORONAVIRUS NL63-RESP PCR NOT DETECTED; CORONAVIRUS OC43-RESP PCR NOT DETECTED
[2021-07-14 10:34] LABS: B. PARAPERTUSSIS- RESP PCR PAN NOT DETECTED; B. PERTUSSIS- RESP PCR PANEL NOT DETECTED; C. PNEUMONIAE- RESP PCR PANEL NOT DETECTED; HUMAN METAPNEUMOVIRUS NOT DETECTED; INFLUENZA A- RESP PCR PANEL NOT DETECTED; INFLUENZA B - RESP PCR PANEL NOT DETECTED; M. PNEUMONIAE- RESP PCR PANEL NOT DETECTED; PARAINFLUENZA VIRUS 1 NOT DETECTED; PARAINFLUENZA VIRUS 2 NOT DETECTED; PARAINFLUENZA VIRUS 3 NOT DETECTED; PARAINFLUENZA VIRUS 4 NOT DETECTED; RHINOVIRUS/ENTEROVIRUS NOT DETECTED; RSV- RESP PCR PANEL NOT DETECTED; SARS-CoV-2 -RESP PCR PANEL DETECTED
--- NOTE | 2021-07-14 11:15 | CT Report ---
PROCEDURE: ANGIO CHEST W/WO INDICATIONS: Chest pain, pe protocol CONTRAST: IV CONTRAST: Isovue 300 ml: 80 PO CONTRAST: *NO PO CONTRAST TECHNIQUE: After the administration of intravenous contrast, 2 mm axial images were acquired from the pulmonary apices to the posterior costophrenic angles during the arterial phase. In addition, 1 mm lung kernel and 5 mm soft tissue kernel reconstructions were performed. 3-dimensional coronal oblique maximum int ensity projection (MIP) reformats, 8 mm axial MIP, and 5 mm coronal and sagittal MPR reformats were t hen performed through the thorax. For radiation dose reduction, the following was used: automated exp osure control, adjustment of mA and/or kV according to patient size. COMPARISON: FINDINGS: Image quality: Excellent. Pulmonary arteries: Pulmonary arteries are normal in size, and demonstrate no intraluminal filling d efects to suggest central pulmonary embolism. Lungs and pleura: Postoperative changes in the left upper lobe with a staple line. Soft tissue densit y around the staple line is unchanged compared to the prior CT.. The lungs demonstrate centrilobular emphysematous changes. Mediastinum: Heart size is normal, without pericardial effusion. No mediastinal or hilar adenopathy . Thoracic aorta is normal in caliber and enhancement. Esophagus is normal in caliber, without hiat al hernia. Bones and chest wall: No suspicious bony lesions. Ribs and thoracic spine appear intact throughout. No axillary or supraclavicular adenopathy. The thyroid is normal in size and there are no incident al findings. Abdomen: Visualized upper abdominal solid organs appear normal in the early arterial phase of enhanc ement. There is a low density right adrenal nodule measuring 1.4 cm, with low density consistent wit h a lipid rich adenoma. IMPRESSION: 1. No pulmonary embolism. 2. Postoperative changes in the left lung apex. 3. Centrilobular emphysema. 4. Right benign adrenal adenoma. 5. No acute abnormality. Reviewed by: Manjinder Burton on 07/14/2021 10:13 AM SARAH Approved by: Manjinder Burton on 07/14/2021 10:13 AM [facility] Station ID: [id number]
[2021-07-14] MEDS ORDERED: CASIRIVIMAB/IMDEVIMAB 10 ML in SODIUM CHLORIDE 0.9% 50 ML IV ONE (11:30)
[2021-07-14 13:19] VITALS: BP 128/76
== END 2021-07-14 13:18 | disposition home or self-care (01) ==
LOC: ED 08:49
DX: U07.1 COVID-19 (principal); R07.9 Chest pain, unspecified; I10 Essential (primary) hypertension; J44.9 Chronic obstructive pulmonary disease, unspecified; Z79.82 Long term (current) use of aspirin; Z95.5 Presence of coronary angioplasty implant and graft; Z72.0 Tobacco use
CPT/HCPCS: 36415; 71275; 80048; 84484; 85025; 87631; 93005; 96374; 99284; J7040; M0243; Q0244; Q9967; 0202U

== ENCOUNTER 2021-07-31 10:15 | Outpatient (CLI) | payer MEDICARE, OTHER ==
[2021-07-31 11:02] VITALS: BP 142/105
--- NOTE | 2021-07-31 11:02 | SLEEP CARE CONSULTATION ---
Information from patient questionnaire entered by Antolin Junior MA. I have reviewed and concur with the information entered by Antolin Junior MA. This document represents the service I personally performed and the decisions made by , Yuliana Shipman ARNP. History of Present Illness Service Date and Time: 07/31/2021 1015 Previous diagnosis: Mild, Obstructive Sleep Apnea-Hypopnea Syndrome AHI: 14.9 (in 2009) Reason for follow up: annual (LAST SEEN 07/2020) Equipment type: CPAP Equipment obtained from: Other ([employer]) Mask style: Nasal Backup mask available: Yes (old mask) Last cushion change: 3 weeks [facility]: Yes [facility] Type of Sleep Study: Polysomnography HPI additional information: ROMEO DAVILA was diagnosed to have mild, AHI 14.9, obstructive sleep apnea- hypopnea syndrome and returned today for CPAP therapy annual follow-up. Sleep Study - Results Type of Sleep Study: Polysomnography Prior sleep studies: Yes Year and Where: 2009 - [facility] CPAP Compliance Data - Data Reviewed with Patient Average duration of nightly device use: 8 hours 27 minutes Compliance rate %: 95 Current pressure setting (cmH2O): 17 Average residual AHI: 1.5 Subjective Missed days of use due to: reports: other (SURGERY) Patient concerns: reports: dry mouth, nose, throat. denies: aerophagia, mask discomfort, air blowing in eyes, mask leak noise, condensation in mask/hose, nasal congestion, epistaxis, other Observed to snore while using device: No Current pressure setting perceived as: comfortable On therapy, patient: reports: sleeping better, awakening more refreshed, being more awake and alert during the day, more rested overall. denies: drowsiness while driving Initial [place] Sleepiness Scale score: 9 (in 2009) Current [place] Sleepiness Scale score: 5 (IN 2021) Allergies and Home Medications Known drug allergies: Yes (PNC,VICODINE) Drug allergies reviewed: Yes Home medication list reviewed: No (no changes) Review of Systems Review of systems same as previous: No (Lung Cancer Surgery 06-10-21) Physical Exam Vital signs obtained and entered by: SARA ZHAO CMA Blood Pressure: 142/105 (LEFT) Cuff size: wrist Heart Rate: 101 O2 Saturation: 94 Height: 5 ft 4 in Weight: 205 lb (WITH CLOTHES) Body Mass Index: 35.2 BMI Classification: Obese Impression and Plan 1. Obstructive Sleep Apnea-Hypopnea Syndrome, mild, with good treatment compliance and good apnea control. On CPAP therapy, the patient has better sleep quality and is more rested overall. Patient was diagnosed and treated for lung cancer. She had surgery on 10 June and is currently cancer free and not on any chemo or radiation. Patient states she received her new device, a ResMed machine, after paying for it herself at the end of April. She has been using it and has only had a little bit of oral dryness. She is very happy with her new device CPAP therapy. Oral dryness can be reduced by adjusting humidity setting higher or heated hose lower or by adjusting both settings. Verbal instructions given on how to change humidity and heated hose settings with rationale explaining why to change. Patient advised that chronic oral dryness can affect dental health and advised to follow up with dentist. In addition, there are oral dryness products that can be used to reduce dryness such as Biotene products, Dry mouth rinse and Xylomelts. Patient to discuss best option with dentist. Patient's apnea severity and rationale for treatment to reduce apnea, improve sleep quality and reduce cardiovascular and cerebrovascular events was reviewed. I also reviewed the benefit of consistent device use of CPAP for hypertension, cardiac disease and gastric reflux. Patient was encouraged to lose weight for their overall health and to reduce apneas. * Continue auto CPAP pressure at 17 cmH2O * Notify me if snoring with mask or feeling that the pressure is too much or too little * Attempt to lose weight * Call this office if any problems using CPAP * Return for follow up in 1 year, or sooner if concerns arise Counseling Topics: Spare mask, Weight loss health impact Visit Type: In Office Time Spent with Patient (minutes): 21 Provider Statement: I spent 100% of the Face to Face Visit with the patient with greater than 50% spent counseling the patient and coordination of care.
== END 2021-07-31 10:16 | disposition home or self-care (01) ==
LOC: SC 10:15
PROVIDERS: ATTEND Nurse Practitioner Family
DX: G47.33 Obstructive sleep apnea (adult) (pediatric) (principal); E66.9 Obesity, unspecified; Z68.35 Body mass index [BMI] 35.0-35.9, adult
CPT/HCPCS: 99213; G0463; 99212

== ENCOUNTER 2022-02-25 11:18 | Emergency (ER) | payer MEDICARE, OTHER ==
[2022-02-25 11:29] VITALS: BP 129/72
--- NOTE | 2022-02-25 12:12 | XRAY Report ---
PROCEDURE: Finger(s) LT INDICATIONS: Trauma TECHNIQUE: AP hand, 3 views of the first finger(s) acquired. COMPARISON: None FINDINGS: Bones: No fractures or dislocations. No suspicious bony lesions. Scattered osteoarthritic changes. Soft tissues: No suspicious soft tissue calcifications. IMPRESSION: No acute radiographic abnormality identified. Scattered osteoarthritic changes. Consider follow-up additional views or cross-sectional imaging if there is high concern for occult in jury Reviewed by: Sergo Sanders MD on 02/25/2022 12:11 PM PDT Approved by: Sergo Sanders MD on 02/25/2022 12:11 PM PDT Station ID: [id number]
--- NOTE | 2022-02-25 13:05 | ED Physician Documentation ---
PD HPI UPPER EXT INJURY - Stated complaint Stated Complaint: LEFT HAND INJ - Chief complaint Chief Complaint: Trauma Ext - History obtained from History obtained from: Patient - History of Present Illness Location: Left, Finger Improved by: Ice - Additonal information Additional information: 66-year-old female presents for evaluation of left thumb injury that was sustained approximately 3 days ago. Patient states that a large can of soda fell on her thumb. She applied ice and an Mukund wrap bandage that she had at the home, however she noticed swelling over the base of her thumb and wanted to make sure that she did not have a fracture. Reports pain with movement of the thumb, denies decreased security investigator strength, weakness, other complaints at this time. Patient does take blood thinners chronically and has chronic bruising over her upper extremities. Review of Systems Ten Systems: 10 systems reviewed and negative Constitutional: denies: Fever, Chills, Myalgias, Fatigue Eyes: denies: Loss of vision, Decreased vision, Photophobia Ears: denies: Loss of hearing, Ear pain, Drainage/discharge Nose: denies: Rhinorrhea / runny nose, Congestion, Foreign Body Cardiac: denies: Chest pain / pressure, Palpitations, Pedal edema Respiratory: denies: Dyspnea, Cough, Hemoptysis GI: denies: Abdominal Pain, Abdominal Swelling, Nausea, Vomiting, Constipation Skin: reports: Other (Bruising, chronic) Musculoskeletal: reports: Extremity pain (Left thumb) PD PAST MEDICAL HISTORY - Past Medical History Past Medical History: Yes Cardiovascular: Hypertension, Angina, [place] Respiratory: Asthma, COPD, Sleep apnea, CPAP use Neuro: None Endocrine/Autoimmune: HyPOthyroidism GI: GERD 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 HEENT: Chronic sinusitis Psych: None, Anxiety Musculoskeletal: Osteoarthritis Derm: None - Past Surgical History Past Surgical History: Yes General: Colonoscopy Ortho: Arthroscopic surgery /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: Hysterectomy Cardiovascular: Coronary stent, Angioplasty Neuro: Other HEENT: Tonsil/Adenoidectomy - Present Medications Home Medications: Ambulatory Orders Medication Instructions Recorded Confirmed Atorvastatin Calcium 80 mg PO DAILY 06/29/17 12/29/21 Clopidogrel [Plavix] 75 mg PO DAILY 06/29/17 12/29/21 Metoprolol Succinate 25 mg PO BID 06/29/17 12/29/21 Aspirin EC [Ecotrin] 81 mg PO DAILY 12/31/20 12/29/21 Benzonatate [Tessalon] 100 mg PO TID PRN 12/31/20 12/29/21 Cyclobenzaprine [Flexeril] 10 mg PO TID PRN 12/31/20 12/29/21 Ergocalciferol [Vitamin D2] 50,000 unit PO PRN PRN 12/31/20 12/29/21 Levothyroxine Sodium [Synthroid] 75 mcg PO DAILY 12/31/20 12/29/21 Loratadine [Claritin] 10 mg PO DAILY 12/31/20 12/29/21 Montelukast [Singulair] 10 mg PO DAILY 12/31/20 12/29/21 Pantoprazole [Protonix] 40 mg PO DAILY 12/31/20 12/29/21 Albuterol Sulfate [Proair Hfa 1 - 2 puffs IH Q4HR PRN 07/14/21 12/29/21 Inhaler] Gabapentin [Neurontin] 200 mg PO QID 07/14/21 12/29/21 Nitroglycerin 1 spray SL PRN PRN 07/14/21 12/29/21 traMADol [Ultram] 50 mg PO Q6H PRN 07/14/21 12/29/21 - Allergies Allergies/Adverse Reactions: Allergies Allergy/AdvReac Type Severity Reaction Status Date / Time hydrocodone bitartrate * Allergy Severe Rash Verified 02/25/22 11:29 [From Vicodin] iodine Allergy Severe Nausea Verified 02/25/22 11:29 Penicillins Allergy Severe Respiratory Verified 02/25/22 11:29 Sulfa (Sulfonamide Allergy Severe Respiratory Verified 02/25/22 11:29 Antibiotics) bee venom protein (honey bee) Allergy Respiratory Verified 02/25/22 11:29 - Social History Does the pt smoke?: Yes Smoking Status: Current every day smoker Does the pt drink ETOH?: Yes Does the pt have substance abuse?: No - Immunizations Immunizations are current?: Yes Immunizations: Other immun not current - POLST Patient has POLST: No POLST Status: Full Code PD ED PE NORMAL - Vitals Vital signs reviewed: Yes - General General: Alert and oriented X 3, No acute distress, Well developed/nourished - HEENT HEENT: Atraumatic, PERRL, EOMI, Ears normal, Moist mucous membranes - Neck Neck: Supple, no meningeal sign, No bony TTP, No JVD - Cardiac Cardiac: RRR, No murmur, Strong equal pulses - Respiratory Respiratory: No respiratory distress, Other (soft expiratory wheezes) - Abdomen Abdomen: Soft, Non tender, Non distended - Back Back: No CVA TTP, No spinal TTP - Derm Derm: Warm and dry, No rash, Other (bruising upper extremities, patient reports chronic) - Extremities Extremities: No deformity, No edema, Other (L thumb TTP at base, full ROM) - Neuro Neuro: Alert and oriented X 3, radiation therapist 2-12 intact, No motor deficit, No sensory deficit, Normal speech - Psych Psych: Normal mood, Normal affect Results - Vitals Vitals: Vital Signs - 24 hr 02/25/22 11:25 Temperature 36.0 C L Heart Rate 98 Respiratory 16 Rate Blood Pressure 129/72 O2 Saturation 97 Oxygen O2 Source Room air PD MEDICAL DECISION MAKING - ED course Complexity details: reviewed results, re-evaluated patient, considered differential, d/w patient ED course: Thumb pain after injury several days ago. Full range of motion, no obvious bony deformity. X-rays negative for acute findings, patient is relieved to know that there is no fracture seen on the x-rays. She was placed in a Velcro thumb spica for comfort. She was advised to continue to apply ice as needed for pain. Patient states that she is not able to take Tylenol and Motrin at home for her other chronic conditions, however she will continue to apply ice. Patient was counseled by myself at bedside that if she continues to have pain 1 week post injury to come back for repeat x-ray. Patient expressed understanding of plan is in agreement at this time. All questions answered at the time of discharge. Departure - Departure Disposition: 01 Home, Self Care Clinical Impression: Injury, thumb, Anticoagulant long-term use Condition: Stable Instructions: ED Contusion Hand, ED Sprain Finger Discharge Date/Time: 02/25/22 13:05
== END 2022-02-25 13:05 | disposition home or self-care (01) ==
LOC: ED 11:18
DX: S60.012A Contusion of left thumb without damage to nail, initial encounter (principal); W20.8XXA Other cause of strike by thrown, projected or falling object, initial encounter; F17.200 Nicotine dependence, unspecified, uncomplicated; Z79.01 Long term (current) use of anticoagulants
CPT/HCPCS: 99282; 99283

== ENCOUNTER 2022-08-01 09:45 | Outpatient (CLI) | payer MEDICARE, OTHER ==
--- NOTE | 2022-08-01 10:17 | SLEEP CARE CONSULTATION ---
Information from patient questionnaire entered by Panfilo Marie. I have reviewed and concur with the information entered by Panfilo Marie. This document represents the service I personally performed and the decisions made by me, Yuliana Shipman ARNP. History of Present Illness Service Date and Time: 08/01/2022 0945 Previous diagnosis: Mild, Obstructive Sleep Apnea-Hypopnea Syndrome AHI: 14.9 (in 2009) Reason for follow up: annual (LAST SEEN 07/2021) Equipment type: CPAP (RESMED Airsense 10; NEED SD CARD) Equipment obtained from: Other ([employer]; getting supplies) Mask style: Nasal Mask brand: Respironics (Dreamwear) Backup mask available: Yes (old mask) Last cushion change: yesterday Prior sleep studies: Yes Year and Where: 2009 - [facility] Type of Sleep Study: Polysomnography HPI additional information: ROMEO DAVILA was diagnosed to have mild, AHI 14.9, obstructive sleep apnea- hypopnea syndrome and returned today for CPAP therapy annual follow-up. Sleep Study - Results Type of Sleep Study: Polysomnography Prior sleep studies: Yes Year and Where: 2009 - formerly [facility] Sleep CPAP Compliance Data - Data Reviewed with Patient Average duration of nightly device use: 8 hours 18 minutes Compliance rate %: 74 (68/90 days used; 100% in last 30 days) Current pressure setting (cmH2O): 17 Average residual AHI: 1.7 Central apnea: 0.2 Obstructive apnea: 0.3 Compliance data discussion: not able to download data from SD card; hx data from 05/02/2021 - 07/30/2021 Subjective Missed days of use due to: reports: travel (forgot to machine) Patient concerns: reports: dry mouth, nose, throat (not very bad; if she turns up the humidifier she gets lots of condensation). denies: aerophagia, mask discomfort, air blowing in eyes, mask leak noise, condensation in mask/hose, nasal congestion, epistaxis Observed to snore while using device: No Current pressure setting perceived as: comfortable On therapy, patient: reports: sleeping better, awakening more refreshed, being more awake and alert during the day, more rested overall. denies: drowsiness while driving Initial [place] Sleepiness Scale score: 9 (in 2009) Current [place] Sleepiness Scale score: 3 (08/01/2022) Allergies and Home Medications Drug allergies reviewed: Yes (as listed in EMR) Home medication list reviewed: Yes (as listed in EMR) Review of Systems Review of systems same as previous: No (lung surgery for cancer in 06-17) Physical Exam Vital signs obtained and entered by: PANFILO Zhang MA Blood Pressure: 122/68 Cuff size: regular Heart Rate: 69 O2 Saturation: 94 Height: 5 ft 4 in Weight: 217 lb 3.2 oz Body Mass Index: 37.3 BMI Classification: Obese Impression and Plan 1. Obstructive Sleep Apnea-Hypopnea Syndrome, mild, with good treatment compliance and good apnea control. On CPAP therapy, the patient has better sleep quality and is more rested overall. Patient did bring in her SD card but we got a card read error and no data. Patient to get a new SD card and them bring it back to the office for us to get the data download. Patient states she was getting a lot of condensation in her hose and mask. She had her daughter come adjust the humidifier to 2 and now she gets a little dry mouth but the condensation is much improved. She had her machine set down near floor and is on a pedestal bed. Patient has significant improvement of their sleep apnea and are satisfied with current CPAP therapy. Patient denies problems with nasal congestion, epistaxis, skin irritation or aerophagia. Patient's apnea severity and rationale for treatment to reduce apnea, improve sleep quality and reduce cardiovascular and cerebrovascular events was reviewed. I also reviewed the be nefit of consistent device use of CPAP for hypertension, COPD, cardiac disease and gastric reflux. 2. Obesity, unspecified. Currently patients BMI is 37.1. Obesity increases the risk of apnea, CPAP pressure requirements and overall health risks especially cardiovascular and diabetes. Thus patient is advised to lose weight. * Continue CPAP pressure at 17 cmH2O * Patient to bring in SD card with data for download * Update supplies * Notify me if snoring with mask or feeling that the pressure is too much or too little * Attempt to lose weight * Call this office if any problems using CPAP * Return for follow up in 1 year, or sooner if concerns arise Counseling Topics: Spare mask, Weight loss health impact Visit Type: In Office Time Spent with Patient (minutes): 23 Provider Statement: I spent 100% of the Face to Face Visit with the patient with greater than 50% spent counseling the patient and coordination of care.
[2022-08-01 10:18] VITALS: BP 122/68
== END 2022-08-01 09:46 | disposition home or self-care (01) ==
LOC: SC 09:45
PROVIDERS: ATTEND Nurse Practitioner Family
DX: G47.33 Obstructive sleep apnea (adult) (pediatric) (principal); E66.9 Obesity, unspecified; Z68.37 Body mass index [BMI] 37.0-37.9, adult
CPT/HCPCS: 99213; G0463; 99212

== ENCOUNTER 2022-09-02 08:37 | Outpatient (CLI) | payer MEDICARE, OTHER ==
--- NOTE | 2022-09-02 12:55 | DEXA Report ---
PROCEDURE: Dexa Spine and/or Hip INDICATIONS: OSTEOPENIA TECHNIQUE: Dual energy x-ray absorptiometry (DXA) was performed on a Pycno System. Regions measur ed are the AP Spine, femoral neck, and if needed forearm. COMPARISON: None. FINDINGS: Lumbar Spine: Bone Mineral Density 0.877 g/cm/cm,T score -2.5, osteoporosis. Left Femoral Neck: Bone Mineral Density 0.894 g/cm/cm, T score -1.0, normal. Left Hip: Bone Mineral Density 0.832 g/cm/cm,T score -1.4, osteopenia. (T score greater or equal to -1.0: NORMAL) (T score from -1.1 to -2.4: OSTEOPENIA) (T score less than or equal to -2.5 to: OSTEOPOROSIS) Impression: Based on WHO criteria, the patient has osteoporosis. Patients with diagnosis of osteoporosis or osteopenia should have regular bone mineral density assess ment. For those eligible for Medicare, routine testing is allowed once every 2 years. Testing frequ ency can be increased for patients who have rapidly progressing disease or for those who are receivin g medical therapy to restore bone mass. Reviewed by: Ricardo Patel MD on 09/02/2022 12:53 PM PST Approved by: Ricardo Patel MD on 09/02/2022 12:53 PM PST Station ID: [id number]
== END 2022-09-02 08:38 | disposition home or self-care (01) ==
LOC: DI 08:37
PROVIDERS: ATTEND Nurse Practitioner Family
DX: M81.0 Age-related osteoporosis without current pathological fracture (principal)

== ENCOUNTER 2023-08-07 18:59 | Emergency (ER) | payer MEDICARE, OTHER ==
[2023-08-07] MEDS ORDERED: NEOMYCIN/POLYMYX/HC OTIC DROPS LEFTEAR STA (19:16)
[2023-08-07 19:18] VITALS: BP 156/77; O2SAT 96
--- NOTE | 2023-08-07 19:18 | ED Physician Documentation ---
PD HPI PED ILLNESS - Stated complaint Stated Complaint: BLOODY EAR - Chief complaint Chief Complaint: Heent - History obtained from History obtained from: Patient - Additional information Additional information: Her left ear was itchy and she stuck her finger in it and then it was bloody. No hearing loss. No pain. 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 CAR ATTENDANT: Hysterectomy Cardiovascular: Coronary stent, Angioplasty Neuro: Other HEENT: Tonsil/Adenoidectomy - Present Medications Home Medications: Ambulatory Orders Medication Instructions Recorded Confirmed Atorvastatin Calcium 80 mg PO DAILY 06/29/17 12/29/21 Clopidogrel [Plavix] 75 mg PO DAILY 06/29/17 12/29/21 Metoprolol Succinate 25 mg PO BID 06/29/17 12/29/21 Aspirin EC [Ecotrin] 81 mg PO DAILY 12/31/20 12/29/21 Benzonatate [Tessalon] 100 mg PO TID PRN 12/31/20 12/29/21 Cyclobenzaprine [Flexeril] 10 mg PO TID PRN 12/31/20 12/29/21 Ergocalciferol [Vitamin D2] 50,000 unit PO PRN PRN 12/31/20 12/29/21 Levothyroxine Sodium [Synthroid] 75 mcg PO DAILY 12/31/20 12/29/21 Loratadine [Claritin] 10 mg PO DAILY 12/31/20 12/29/21 Montelukast [Singulair] 10 mg PO DAILY 12/31/20 12/29/21 Pantoprazole [Protonix] 40 mg PO DAILY 12/31/20 12/29/21 Albuterol Sulfate [Proair Hfa 1 - 2 puffs IH Q4HR PRN 07/14/21 12/29/21 Inhaler] Gabapentin [Neurontin] 200 mg PO QID 07/14/21 12/29/21 Nitroglycerin 1 spray SL PRN PRN 07/14/21 12/29/21 traMADol [Ultram] 50 mg PO Q6H PRN 07/14/21 12/29/21 Neomycin/Polymyx/Hc Otic Drops 4 drops OT TID #1 each 08/07/23 [Cortisporin Ear Susp] - Allergies Allergies/Adverse Reactions: Allergies Allergy/AdvReac Type Severity Reaction Status Date / Time hydrocodone bitartrate * Allergy Severe Rash Verified 08/07/23 19:08 [From Vicodin] iodine Allergy Severe Nausea Verified 08/07/23 19:08 Penicillins Allergy Severe Respiratory Verified 08/07/23 19:08 Sulfa (Sulfonamide Allergy Severe Respiratory Verified 08/07/23 19:08 Antibiotics) bee venom protein (honey bee) Allergy Respiratory Verified 08/07/23 19:08 - Social History Does the pt smoke?: Yes Smoking Status: Current every day smoker Does the pt drink ETOH?: Yes Does the pt have substance abuse?: No - Immunizations Immunizations are current?: Yes Immunizations: Other immun not current - POLST Patient has POLST: No POLST Status: Full Code PD ED PE NORMAL - Vitals Vital signs reviewed: Yes - General General: Alert and oriented X 3, No acute distress - HEENT HEENT: Other (She has an posterior abrasion of the left ear canal with some dried blood in it. The TM is visualized and normal.) Results - Vitals Vitals: Vital Signs - 24 hr 08/07/23 19:08 Temperature 36.8 C Heart Rate 86 Respiratory 16 Rate Blood Pressure 156/77 H O2 Saturation 96 Oxygen O2 Source Room air Departure - Departure Disposition: 01 Home, Self Care Clinical Impression: Abrasion of left ear canal Qualifiers: Encounter type: initial encounter Qualified Code(s): S00.412A - Abrasion of left ear, initial encounter Condition: Good Record reviewed to determine appropriate education?: Yes Prescriptions: Neomycin/Polymyx/Hc Otic Drops [Cortisporin Ear Susp] 4 drops OT TID #1 each Comments: You scratched the left ear canal. Should heal well with the antibiotic drops. Return for new or worsening symptoms. Forms: PCP List
== END 2023-08-07 19:31 | disposition home or self-care (01) ==
LOC: ED 18:59
DX: S00.412A Abrasion of left ear, initial encounter (principal); W50.4XXA Accidental scratch by another person, initial encounter; Y93.89 Activity, other specified; F17.200 Nicotine dependence, unspecified, uncomplicated
CPT/HCPCS: 99282; 99283; A9270

== ENCOUNTER 2023-08-26 13:55 | Outpatient (CLI) | payer MEDICARE, OTHER ==
--- NOTE | 2023-08-27 15:54 | Mammography Report ---
BILATERAL DIGITAL SCREENING MAMMOGRAM 3D/2D: 08/26/2023 CLINICAL: Routine screening. Comparison is made to exams dated: 05/28/2021 mammogram and 03/09/2020 mammogram - [facility]. There are scattered areas of fibroglandular density in both breasts (category b / 25%-50% glandular t issue). There is a benign lymph node in the left breast. No significant masses, calcifications, or other findings are seen in either breast. There has been no significant interval change. IMPRESSION: BENIGN There is no mammographic evidence of malignancy. A 1 year screening mammogram is recommended. Based on the Tyrer Cuzick model (a risk assessment model) the patient's lifetime risk is 1.9% and her 10 year risk is 1.0%. According to the ACR, ACS, and NCCN guidelines, an annual breast MRI exam jim g with mammogram is recommended if the patients lifetime risk is 20% or greater. This exam was interpreted at Station ID: [id number]. NOTE: For mammograms, a report in lay terms will be sent to the patient. Approximately 15% of breast malignancies will not be visualized mammographically. In the management of a palpable breast mass, a negative mammogram must not discourage biopsy of a clinically suspicious lesion. Electronically Signed By: Ajay copeland/travis:08/26/2023 18:20:22 letter sent: No_Letter ACR BI-RADS Category 2: Benign Finding(s) 3342F PARENCHYMAL PATTERN: (A) - The breast(s) demonstrate(s) scattered fibroglandular densities. BI-RADS CATEGORY: (2) - 2 Mammogram [id number] 1 year screening LATERALITY: (B)
== END 2023-08-26 13:56 | disposition home or self-care (01) ==
LOC: DI 13:55
PROVIDERS: ATTEND Nurse Practitioner Family
DX: Z12.31 Encounter for screening mammogram for malignant neoplasm of breast (principal); R92.323 Mammographic fibroglandular density, bilateral breasts

== ENCOUNTER 2023-09-11 08:31 | Outpatient (CLI) | payer MEDICARE, OTHER ==
--- NOTE | 2023-09-11 09:18 | Sleep Patient Instructions ---
Sleep Center Visit Summary - Patient Visit Information Reason for Visit: Annual follow-up - Patient Instructions Additional Instructions: You will continue with CPAP therapy with pressure set at 17 cmH2O. A supply prescription will be updated and sent to new DME supplier. I have added a mask fitting for the full face mask, F&P Barbie Full. We encourage you to continue to try to lose weight. Please follow up with the sleep care office in 1 year. - Clinic Information Contact: [facility] [address] [place] [address] [email or web address] T: [phone]
[2023-09-11 09:22] VITALS: BP 110/72; O2SAT 88
--- NOTE | 2023-09-11 09:22 | SLEEP CARE CONSULTATION ---
Information from patient questionnaire entered by Luly Marie. I have reviewed and concur with the information entered by Luly Marie. This document represents the service I personally performed and the decisions made by me, Yuliana Shipman ARNP. History of Present Illness Service Date and Time: 09/11/2023 0831 Previous diagnosis: Mild, Obstructive Sleep Apnea-Hypopnea Syndrome AHI: 14.9 (in 2009) Reason for follow up: annual (LAST SEEN 07/2022) Equipment type: CPAP (RESMED Airsense 10; s/u 04/2021, NEED SD CARD) Equipment obtained from: Other (Primary Data; needs to change due to insurance change) Mask style: Nasal Backup mask available: Yes (old mask) Last cushion change: last week Prior sleep studies: Yes [facility] Type of Sleep Study: Polysomnography HPI additional information: ROMEO DAVILA was diagnosed to have mild, AHI 17, obstructive sleep apnea-hypopnea syndrome and returned today for CPAP therapy annual follow-up. Sleep Study - Results Type of Sleep Study: Polysomnography Prior sleep studies: Yes Year and [facility] CPAP Compliance Data - Data Reviewed with Patient Average duration of nightly device use: 7 HRS 24 MINS Compliance rate %: 93 (09/11/22-09/10/23; 359/365 days used) Current pressure setting (cmH2O): 17 Average residual AHI: 1.1 Central apnea: 0.2 Obstructive apnea: 0.3 Average large leak: 0.7 L/min Subjective Patient concerns: denies: aerophagia, mask discomfort, air blowing in eyes, mask leak noise, condensation in mask/hose, nasal congestion, dry mouth, nose, throat, epistaxis Observed to snore while using device: No Current pressure setting perceived as: comfortable On therapy, patient: reports: sleeping better, awakening more refreshed, being more awake and alert during the day, more rested overall. denies: drowsiness while driving Initial [place] Sleepiness Scale score: 9 (in 2009) Current [place] Sleepiness Scale score: 4 (09/11/23) Allergies and Home Medications Known drug allergies: Yes (as listed) Drug allergies reviewed: Yes Home medication list reviewed: Yes (no changes) Allergy and home medication list: Allergies hydrocodone bitartrate * [From Vicodin] Allergy (Severe, Verified 09/09/23 11:41) Rash iodine Allergy (Severe, Verified 09/09/23 11:41) Nausea Penicillins Allergy (Severe, Verified 09/09/23 11:41) Respiratory Sulfa (Sulfonamide Antibiotics) Allergy (Severe, Verified 09/09/23 11:41) Respiratory bee venom protein (honey bee) Allergy (Verified 09/09/23 11:41) Respiratory Review of Systems Review of systems same as previous: Yes (no changes) Physical Exam Vital signs obtained and entered by: Luly Zhang MA Blood Pressure: 110/72 (LEFT ARM) Cuff size: regular Heart Rate: 76 O2 Saturation: 88 Height: 5 ft 4 in Weight: 199 lb 12.8 oz Weight change since last visit: 18 lb loss Body Mass Index: 34.2 BMI Classification: Obese Impression and Plan 1. Obstructive Sleep Apnea-Hypopnea Syndrome, mild, with good treatment compliance and good apnea control. On CPAP therapy, the patient has better sleep quality and is more rested overall. The patient has had a change in insurance and needs to have a new DME supplier. She also would like to try a hybrid fullface mask, the [employer] Barbie full face mask. She will need to use barriers because of skin sensitivity to the silicone/plastic cushions on her face, so I gave her information on where to get barriers online. Patient has sig nificant improvement of their sleep apnea and is satisfied with current CPAP therapy. Patient denies problems with oral dryness, nasal congestion, epistaxis, skin irritation or aerophagia. Patient's apnea severity and rationale for treatment to reduce apnea, improve sleep quality and reduce cardiovascular and cerebrovascular events was reviewed. I also reviewed the benefit of consistent device use of CPAP for hypertension, cardiac disease and gastric reflux. 2. Obesity, unspecified. Currently patients BMI is 34.2. She has lost weight. Obesity increases the risk of apnea, CPAP pressure requirements and overall health risks especially cardiovascular and diabetes. Thus patient is advised to continue to try to lose weight. * Continue CPAP pressure at 17 cmH2O * Transfer DME * Mask fitting for full face mask * Update supply prescription * Notify me if snoring with mask or feeling that the pressure is too much or too little * Attempt to lose weight * Call this office if any problems using CPAP * Return for follow up in 12 months, or sooner if concerns arise Counseling Topics: Spare mask, Weight loss health impact Prescriptions: Device supplies Follow up with Sleep Care in: 1 year Visit Type: In Office Time Spent with Patient (minutes): 21 Provider Statement: I spent 100% of the Face to Face Visit with the patient with greater than 50% spent counseling the patient and coordination of care.
== END 2023-09-11 08:32 | disposition home or self-care (01) ==
LOC: SC 08:31
PROVIDERS: ATTEND Nurse Practitioner Family
DX: G47.33 Obstructive sleep apnea (adult) (pediatric) (principal); E66.9 Obesity, unspecified; Z68.34 Body mass index [BMI] 34.0-34.9, adult
CPT/HCPCS: 99213; G0463; 99212

== ENCOUNTER 2023-10-30 14:14 | Outpatient (CLI) | payer MEDICARE, OTHER ==
[2023-10-30 21:30] LABS: ESTIMATED AVERAGE GLUCOSE 148 mg/dL (70-100); HEMOGLOBIN A1c% 6.8 % (4.27-6.07)
== END 2023-10-30 14:15 | disposition home or self-care (01) ==
LOC: LAB 14:14
PROVIDERS: ATTEND Nurse Practitioner Family
DX: E11.9 Type 2 diabetes mellitus without complications (principal)
CPT/HCPCS: 36415; 83036

== ENCOUNTER 2024-03-07 06:51 | Day surgery (SDC) | payer MEDICARE, OTHER ==
[~2024-03-07 06:51] MED LIST: ceFAZolin 2 GM VIAL ONE
[2024-03-07] MEDS: LACTATED RINGERS 1,000 ML IV ONE ×2 (06:55→11:10)
[2024-03-07] MEDS: ACETAMINOPHEN 500 MG TABLET PO ONE (07:10)
--- NOTE | 2024-03-07 07:21 | ANESTHESIA ---
Pre-Anesthesia VS, & Labs - Diagnosis lung mass - Procedure port placement Vital Signs: Temp Pulse Resp BP Pulse Ox O2 Flow Rate 36.5 C 115 H 18 127/72 94 3 03/07/24 07:07 03/07/24 07:07 03/07/24 07:07 03/07/24 07:07 03/07/24 07:07 03/07/24 07:07 Height: 5 ft 4 in Weight (kg): 86 kg Body Mass Index: 32.5 BMI Classification: Obese - NPO >8 hours - Is Patient ?: No - Lab Results Lab results reviewed: Yes Home Medications and Allergies Home Medications: Ambulatory Orders Acetaminophen [Tylenol] 650 mg PO Q6H PRN 03/03/24 Alendronate [Fosamax] 70 mg PO DAILY 03/03/24 Ibuprofen [Motrin] 1 tablet PO Q8H PRN 03/03/24 Atorvastatin Calcium 80 mg PO DAILY 06/29/17 Aspirin EC [Ecotrin] 81 mg PO DAILY 12/31/20 Cyclobenzaprine [Flexeril] 10 mg PO TID PRN 12/31/20 Ergocalciferol [Vitamin D2] 50,000 unit PO MAILN 12/31/20 Levothyroxine Sodium [Synthroid] 75 mcg PO DAILY 12/31/20 Loratadine [Claritin] 10 mg PO DAILY 12/31/20 Montelukast [Singulair] 10 mg PO QPM 12/31/20 Pantoprazole [Protonix] 40 mg PO DAILY 12/31/20 Albuterol Sulfate [Proair Hfa Inhaler] 1 - 2 puffs IH Q4HR PRN 07/14/21 Nitroglycerin 1 spray SL PRN PRN 07/14/21 Metformin HCl [Metformin ER Gastric] 500 mg PO BIDWM 12/16/23 EPINEPHrine [Epinephrine] 0.3 mg IM PRN PRN 12/17/23 Ipratropium/Albuterol [Duoneb] 3 ml INH TID PRN 12/17/23 Metoprolol Tartrate [Lopressor] 25 mg PO BID 12/17/23 Acetaminophen [Tylenol] 650 mg PO Q6H PRN 03/03/24 Alendronate [Fosamax] 70 mg PO DAILY 03/03/24 Ibuprofen [Motrin] 1 tablet PO Q8H PRN 03/03/24 Allergies/Adverse Reactions: Allergies Allergy/AdvReac Type Severity Reaction Status Date / Time hydrocodone bitartrate * Allergy Severe Rash Verified 12/16/23 12:23 [From Vicodin] iodine Allergy Severe Nausea Verified 12/16/23 12:23 Penicillins Allergy Severe Respiratory Verified 12/16/23 12:23 Sulfa (Sulfonamide Allergy Severe Respiratory Verified 12/16/23 12:23 Antibiotics) bee venom protein (honey bee) Allergy Respiratory Verified 12/16/23 12:23 Anes History & Medical History - Anesthetic History Anesthesia Complications: reports: No previous complications - Medical History Cardiovascular: reports: Hypertension, Angina, [place] Pulmonary: reports: Asthma, COPD, Sleep apnea, CPAP use Gastrointestinal: reports: GERD Urinary: reports: None Neuro: reports: None Musculoskeletal: reports: Osteoarthritis, Chronic back pain Endocrine/Autoimmune: reports: HyPOthyroidism Blood Disorders: reports: None Skin: reports: None Smoking Status: Current every day smoker Psychosocial: reports: No issues indicated History of Cancer?: Yes - Surgical History General: reports: Colonoscopy, Other Eyes Ears Nose Throat (EENT): reports: Tonsil/Adenoidectomy Cardiothoracic: reports: Coronary stent, Angioplasty Gynecologic: reports: Hysterectomy, Other Neurologic: reports: Other Orthopedic: reports: Other Results - EKG Results EKG Comparison: Reviewed EKG Exam General: Alert Dental: WNL, Other (missing tooth; left upper) Mouth Openin Fingerbreadth Neck Mobility: Normal Mallampati classification: II Respiratory: Other (coarse breath sounds bilaterally; s/p left upper lobectomy per patient) Plan Anesthesia Type: Total IV Consent for Procedure(s) Verified and Reviewed: Yes Code Status: Attempt Resuscitation ASA classification: 3-Severe systemic disease Is this case an emergency?: No
[2024-03-07] MEDS ORDERED: fentaNYL 100 MCG/2 ML VIAL ONE (07:23)
[2024-03-07] MEDS ORDERED: PROPOFOL 500 MG/50 ML 500 MG/50 ML VIAL ONE (07:23)
[2024-03-07] MEDS ORDERED: MIDAZOLAM 2 MG/2 ML VIAL ONE (07:23)
[2024-03-07] MEDS ORDERED: KETAMINE 200 MG/20 ML VIAL ONE (07:24)
[2024-03-07] MEDS ORDERED: LIDOCAINE-PF 2% 10 ML AMP SUBQ ONE (07:24)
[2024-03-07] MEDS ORDERED: BUPIVACAINE 0.25% PF 30 ML VIAL ONE (07:25)
[2024-03-07] MEDS ORDERED: LIDOCAINE 1%-EPI 1:100000 20 ML MDV ONE (07:25)
--- NOTE | 2024-03-07 07:39 | HISTORY & PHYSICAL EXAMINATION ---
HPI - Admitted From Admitted from: Direct admit - History Obtained From Records Reviewed: Old records reviewed History obtained from: Family - History of Present Illness HPI Comment/Other: Evelia is a 68 year old female with recurrent left lung small cell carcinoma. She is admitted for placement of an infusion port for the purpose of receiving chemotherapy. She underwent left robotic lung wedge resection for a 2.0 x 2.0 x 0.9 cm invasive adenocarcinoma on 06/10/2021. All margins were negative. 4 lymph nodes were negative. (Stage 1B T1b pN0) CTA was performed 12/16/2023 for suspected pulmonary embolism and a right lung mass with associated mediastinal adenopathy was identified and confirmed with PET scan on 01/19/2024. Evelia continues to smoke cigarettes and has progression of her SOB. 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: Other : positive: None HEENT: positive: Chronic vision loss, Chronic sinusitis Psych: positive: None Musculoskeletal: positive: Osteoarthritis, Chronic back pain Derm: positive: None MRSA Hx?: No - Past Surgical History General: positive: Colonoscopy, Other Ortho: positive: Other /TEMPERATURE CONTROL INSPECTOR: positive: Hysterectomy, Other Cardiovascular: positive: Coronary stent, Angioplasty Neuro: positive: Other HEENT: positive: Tonsil/Adenoidectomy Social & Family Hx - Social History Does the pt smoke?: Yes Smoking Status: Current every day smoker Does the pt drink ETOH?: Yes Does the pt have substance abuse?: No - POLST Patient has POLST: No POLST Status: Full Code Meds/Allgy - Home Medications Home Medications: Ambulatory Orders Medication Instructions Recorded Confirmed Atorvastatin Calcium 80 mg PO DAILY 06/29/17 03/03/24 Aspirin EC [Ecotrin] 81 mg PO DAILY 12/31/20 03/03/24 Cyclobenzaprine [Flexeril] 10 mg PO TID PRN 12/31/20 03/03/24 Ergocalciferol [Vitamin D2] 50,000 unit PO MALIN 12/31/20 03/03/24 Levothyroxine Sodium [Synthroid] 75 mcg PO DAILY 12/31/20 03/03/24 Loratadine [Claritin] 10 mg PO DAILY 12/31/20 03/03/24 Montelukast [Singulair] 10 mg PO QPM 12/31/20 03/03/24 Pantoprazole [Protonix] 40 mg PO DAILY 12/31/20 03/03/24 Albuterol Sulfate [Proair Hfa 1 - 2 puffs IH Q4HR PRN 07/14/21 03/03/24 Inhaler] Nitroglycerin 1 spray SL PRN PRN 07/14/21 03/03/24 Metformin HCl [Metformin ER 500 mg PO BIDWM 12/16/23 03/03/24 Gastric] EPINEPHrine [Epinephrine] 0.3 mg IM PRN PRN 12/17/23 03/03/24 Ipratropium/Albuterol [Duoneb] 3 ml INH TID PRN 12/17/23 03/03/24 Metoprolol Tartrate [Lopressor] 25 mg PO BID 12/17/23 03/03/24 Benzonatate [Tessalon] 100 mg PO TID #30 cap 12/20/23 03/03/24 Clopidogrel [Plavix] 75 mg PO DAILY #30 tab 12/20/23 03/03/24 Fluticasone [Flonase] 2 sprays HELENA BID #1 each 12/20/23 03/03/24 Acetaminophen [Tylenol] 650 mg PO Q6H PRN 03/03/24 03/03/24 Alendronate [Fosamax] 70 mg PO DAILY 03/03/24 03/03/24 Ibuprofen [Motrin] 1 tablet PO Q8H PRN 03/03/24 03/03/24 - Allergies Allergies/Adverse Reactions: Allergies Allergy/AdvReac Type Severity Reaction Status Date / Time hydrocodone bitartrate * Allergy Severe Rash Verified 12/16/23 12:23 [From Vicodin] iodine Allergy Severe Nausea Verified 12/16/23 12:23 Penicillins Allergy Severe Respiratory Verified 12/16/23 12:23 Sulfa (Sulfonamide Allergy Severe Respiratory Verified 12/16/23 12:23 Antibiotics) bee venom protein (honey bee) Allergy Respiratory Verified 12/16/23 12:23 Exam - Vital Signs Reviewed Vital Signs: Yes Vital Signs: Vital Signs x48h Temp Pulse Resp BP Pulse Ox O2 Flow Rate 03/07/24 07:07 97.7 F 115 H 18 127/72 94 3 - Physical Exam General Appearance: positive: No acute distress, Alert Eyes Bilateral: positive: Normal inspection, PERRL ENT: positive: ENT inspection nml, Pharynx nml Neck: positive: Nml inspection, Thyroid nml, Trachea midline Respiratory: positive: Chest non-tender, No respiratory distress, Breath sounds nml Cardiovascular: positive: Regular rate & rhythm Peripheral Pulses: positive: 2+ Abdomen: positive: Non-tender, No organomegaly, Nml bowel sounds, No distention Skin: positive: Color nml, No rash Extremities: positive: Non-tender, Full ROM, Nml appearance Neurologic/Psychiatric: positive: Oriented x3 Results - Lab Results Other Lab Results: Lab Results x24hrs 03/07/24 Range/Units 07:33 POC Whole Bld Glucose 158 H (70 - 100) mg/dL - Other Other Results/Comments: I reviewed her labs from November 2023 which were normal. Her 12/16/2023 CTA chest identified mediastinal adenopathy and a right lung nodule consistent with metastasis. By report, her 01/19/2024 PET scan shows a 3.1 cm right lung mass with mediastinal adenopathy Impression/Plan - Problem List Problem List: Assessment: 1) Recurrent non-small cell carcinoma of the lung Plan: 1) Placement of infusion port under local anesthesia with monitored IV sedation. Consent: Evelia has been counseled for the procedure, it's indications, risks, benefits and expected outcome as well as alternative therapies. We specifically discussed risks associated with anesthesia, bleeding, infection, and possible intermediate school teacher port complications such as infection, occlusion whicjh may require revision or removal. She prefers placement of the port in her left chest wall but is amenable to right side placement if the left side is not accessible. We will start with a cephalic vein cutdown and use subclavian or IJ venapuncture only if required to decrease the risk of iatrogenic pneumothorax. Evelia understands, agrees, and consents to the proposed operative strategy and requests that we proceed with the procedure as outlined in our discussion. Juve Mireles MD, [facility] General Surgery Service
[2024-03-07] MEDS ORDERED: ONDANSETRON 4 MG/2 ML VIAL IVP PRN (07:45)
[2024-03-07] MEDS ORDERED: ATROPINE ABBOJECT 1 MG/10 ML SYRINGE IVP PRN (07:45)
[2024-03-07] MEDS ORDERED: NALOXONE 0.4 MG/ML VIAL IVP PRN (07:45)
[2024-03-07] MEDS ORDERED: METOCLOPRAMIDE 10 MG/2 ML VIAL IVP PRN (07:45)
[2024-03-07] MEDS ORDERED: MORPHINE 2 MG/ML CARPUJECT IVP PRN (07:45)
[2024-03-07] MEDS ORDERED: ePHEDrine 50 MG/ML VIAL IVP PRN (07:45)
[2024-03-07] MEDS ORDERED: fentaNYL 100 MCG/2 ML VIAL IVP PRN (07:45)
[2024-03-07] MEDS ORDERED: LACTATED RINGERS 1,000 ML IV SCH (08:00)
[2024-03-07] MEDS ORDERED: VASOPRESSIN 20 UNIT/ML VIAL ONE (09:35)
[2024-03-07] MEDS: LIDOCAINE 1%-EPI 1:100000 20 ML MDV SUBQ ONE ×2 (10:00)
[2024-03-07] MEDS: BUPIVACAINE 0.25% PF 30 ML VIAL SUBQ ONE ×2 (10:00)
[2024-03-07] MEDS ORDERED: PROPOFOL 200 MG/20 ML VIAL IVP ONE (10:14)
--- NOTE | 2024-03-07 11:14 | OPERATIVE REPORT ---
Operative Report - Other Other Information/Narrative: PROCEDURE DATE: 03/07/2024 PREOPERATIVE DIAGNOSIS: Evelia is a 68 year old female with recurrent non-small cell carcinoma of the lung. I am asked to perform venous access using an implantable device. POSTOPERATIVE DIAGNOSIS: Same NAME OF PROCEDURE: Placement of a PowerPort infusion catheter into the superior vena cava via a left internal jugular venipuncture using real time ultrasound guidance. ([id number], [id number]) SURGEON: Juve Mireles MD, FACS [employer] SURGEON: None ANESTHESIA: pharmacy technician COMPLICATIONS: None ESTIMATED BLOOD LOSS: 5 ml DRAINS: None SPECIMEN: None FINDINGS: Unable to access left subclavian vein by either cephalic vein cutdown or percutaneous access. DESCRIPTION OF OPERATION IS FOLLOWS: After consent for the procedure was obtained, the patient was brought to the operating room, where a surgical time-out was performed, indicating the patient and the procedure to be performed. A rolled towel was placed between the shoulder blades. The anterior chest wall, right and left sides, were prepped with chlorhexidine and draped in a sterile fashion. The left arm was placed at the side, and the left chest wall was exposed. 1% lidocaine with epinephrine in a 50/50 mix with 1/4% marcaine was used for local anesthesia throughout the procedure. An incision was made in the skin of the left anterior chest over the deltopectoral grove and the subcutaneous tissue was dissected until the cephalic vein was identified deep within the deltopectoral groove. The cephalic vein was ligated distally and encircled proximally with 3-0 silk ligatures. A venotomy was made and a single lumen PowerPort catheter which had been previously flushed with sterile saline was placed into the vein. I was unable to fully insert the catheter due to obstruction. Multiple head position changes along with Trendelenburg position were unsuccessful in passing the catheter. Using fluoroscopy the catheter tip was found to only adbvance into the internal mammary vein. I decided to abort the cutdown attempt. The catheter was removed and proximal 3-0 silk ligature was ligated to occlude the cephalic vein. A subclavian venapuncture was then planned. The patient was already in a steep Trendelenburg position. The skin and subcutaneous tissue under the left clavicle in it's distal third location was infiltrated with 1% lidocaine. Despite multiple attempts, I was unable to access the left subclavian vein. I had to assume it was obstructed perhaps due to the previous left upper lobectomy performed in 2020. The left internal jugular vein was then interrogated with an ultrasound device. Using real time ultrasonography, the left IJ was accessed with a needle and a guide wire inserted through the needle into the superior vena cava using fluoroscopy as a guide. The needle was removed and a dilator with peel-away catheter was inserted into the internal jugular vein over the guidewire. The guidewire confirmed to be in the superior vena cava using fluoroscopy. A vein dilator and peel away sheath was placed over the guidewire and a single lumen catheter was placed into the superior vena cava and confirmed in the proper position using fluoroscopy. The peel away sheath was removed. A subcutaneous pocket was created at the cutdown incision site using electrocautery. The catheter was cut to the appropriate length, tunelled through the subcutaneous tissue from it's entry into the jugular vein to the in cision, and attached to the port using the accompanying flange The PowerPort was sutured to the pectoralis major muscle and fascia using interrupted 2-0 Prolene suture after the port was placed into the pocket. The port was checked in this position and it aspirated blood and easily instilled heparinized saline. The skin incision was closed using a running 3-0 Vicryl suture for the subcutaneous tissue. The skin of the internal jugular venotomy site and the port placement site were closed with a running 4-0 Vicryl subcuticular suture with Steri-Strips to reinforce the epidermis. The port again was checked for patency after the skin incision was closed, it functioned appropriately and was flushed with heparinized saline. The site of puncture was marked with indelible ink. Dressings were placed. The patient tolerated the procedure well and was brought to the recovery room with stable vital signs. A post-procedure CXR revealed no evidence of a left pneumothorax and the catheter tip in the distal SVC.
[2024-03-07 11:30] VITALS: BP 130/63; O2SAT 95
--- NOTE | 2024-03-07 11:40 | ANESTHESIA POST OP EVALUATION ---
Anesthesia Post Eval - Post Anesthesia Eval Vitals: Last Vital Signs Temp 36.2 C L 03/07/24 11:05 Pulse 96 03/07/24 11:25 Resp 16 03/07/24 11:25 BP 130/63 03/07/24 11:25 Pulse Ox 95 03/07/24 11:25 O2 Flow Rate 3 03/07/24 07:07 CV Function Including HR & BP: Stable Pain Control: Satisfactory Nausea & Vomiting: Negative Mental Status: Baseline Respiratory Status: Airway Patent Hydration Status: Satisfactory Anesthesia Complications: None
--- NOTE | 2024-03-07 12:15 | XRAY Report ---
PROCEDURE: Post Port Placement 1V CXR INDICATIONS: L IJ Infusaport placement: ?L pneumo; TECHNIQUE: One view of the chest was acquired. COMPARISON: 12/16/2023. FINDINGS: Surgical changes and devices: Interval left chest Port-A-Cath placement, which may in the lower neck , incompletely visualized. The tip projects to the SVC right atrial junction. Lungs and pleura: No pleural effusions or pneumothorax. Spiculated density, right suprahilar region. Patchy bibasilar atelectasis. Mediastinum: Mediastinal contours appear normal. Heart size is normal. Bones and chest wall: No suspicious bony lesions. Overlying soft tissues appear unremarkable. IMPRESSION: 1. Tip of left chest Port-A-Cath projects to the SVC right atrial junction. It may be looped on itsel f in the lower neck. This is not definite. Consider repeat chest film centered slightly higher. 2. Spiculated density, right suprahilar region. 3. Patchy bibasilar atelectasis. Reviewed by: Jan Hatch MD on 03/07/2024 12:14 PM PDT Approved by: Jan Hatch MD on 03/07/2024 12:14 PM PDT Station ID: [id number]
--- NOTE | 2024-03-08 16:34 | XRAY Report ---
PROCEDURE: OR Port-A-Cath INDICATIONS: PORT-A-CATH PLACEMENT CONTRAST: Same day chest radiograph FLUORO TIME: 001.0 TECHNIQUE: Real time fluoroscopy was performed of the thorax. COMPARISON: None. FINDINGS: 2 intraoperative fluoroscopic images of port placement. IMPRESSION: Intraoperative fluoroscopic images of left-sided port placement. Please see operative report for deta ils. Reviewed by: Ann Marie Washington MD on 03/08/2024 4:33 PM PDT Approved by: Ann Marie Washington MD on 03/08/2024 4:33 PM PDT Station ID: [id number]
== END 2024-03-07 06:52 | disposition home or self-care (01) ==
LOC: SDS 06:51
PROVIDERS: ATTEND Surgery
DX: C34.92 Malignant neoplasm of unspecified part of left bronchus or lung (principal); Z87.891 Personal history of nicotine dependence; E66.9 Obesity, unspecified; Z68.32 Body mass index [BMI] 32.0-32.9, adult; J44.9 Chronic obstructive pulmonary disease, unspecified; G47.30 Sleep apnea, unspecified; I25.2 Old myocardial infarction
CPT/HCPCS: 36561; A9270; C1788; J3490; J7120

== ENCOUNTER 2024-03-28 21:51 | Outpatient (CLI) | payer MEDICARE, OTHER | END 2024-03-28 21:52 | disposition critical access hospital (66) | LOC: EMS 21:51 | DX: R06.03 Acute respiratory distress (principal); Z99.81 Dependence on supplemental oxygen | CPT/HCPCS: A0425; A0429 ==

== ENCOUNTER 2024-03-28 21:57 | Inpatient (IN) | payer MEDICARE, OTHER ==
--- NOTE | 2024-03-29 00:03 | ED Physician Documentation ---
PD HPI DYSPNEA - Stated complaint Stated Complaint: SOA - Chief complaint Chief Complaint: Resp - History obtained from History obtained from: Patient - Additional information Additional information: BIBA. Patient was brought to the ED prior to beginning my shift and thus I was not present when EMS gave report. However, the patient is AAOx3 and able to provide HPI/ROS. Patient tells me she was diagnosed approximately 3 months ago with a lung cancer in the right lung and is scheduled to start both chemotherapy and radiation in one week ([facility]). She tells me that findings on recent CT scan indicated this right lung mass is impinging on the trachea. The patient uses supplemental oxygen at home (3 L/minute) as well as CPAP at night. She has a chief complaint of gradually worsening dyspnea and increasingly frequent cough over the past few days. She denies fever, leg swelling. She denies any pain including chest pain except brief episodic chest discomfort that is temporally related to coughing. 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 Review of Systems Constitutional: reports: Fatigue. denies: Fever, Chills, Sweats Cardiac: denies: Chest pain / pressure (brief episodic chest discomfort temporally related to episodes of coughing), Palpitations, Pedal edema Respiratory: reports: Dyspnea, Cough. 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 : None HEENT: Chronic vision loss, Chronic sinusitis Psych: None Musculoskeletal: Osteoarthritis, Chronic back pain Derm: None - Past Surgical History Past Surgical History: Yes General: Colonoscopy, Other Ortho: Other /ENVIRONMENTAL STUDIES PROGRAM DIRECTOR: Hysterectomy, Other Cardiovascular: Coronary stent, Angioplasty Neuro: Other HEENT: Tonsil/Adenoidectomy - Present Medications Home Medications: Ambulatory Orders Medication Instructions Recorded Confirmed Atorvastatin Calcium 80 mg PO DAILY 06/29/17 03/03/24 Aspirin EC [Ecotrin] 81 mg PO DAILY 12/31/20 03/07/24 Cyclobenzaprine [Flexeril] 10 mg PO TID PRN 12/31/20 03/07/24 Ergocalciferol [Vitamin D2] 50,000 unit PO MALIN 12/31/20 03/07/24 Levothyroxine Sodium [Synthroid] 75 mcg PO DAILY 12/31/20 03/07/24 Loratadine [Claritin] 10 mg PO DAILY 12/31/20 03/07/24 Montelukast [Singulair] 10 mg PO QPM 12/31/20 03/07/24 Pantoprazole [Protonix] 40 mg PO DAILY 12/31/20 03/07/24 Albuterol Sulfate [Proair Hfa 1 - 2 puffs IH Q4HR PRN 07/14/21 03/03/24 Inhaler] Nitroglycerin 1 spray SL PRN PRN 07/14/21 03/03/24 Metformin HCl [Metformin ER 500 mg PO BIDWM 12/16/23 03/07/24 Gastric] EPINEPHrine [Epinephrine] 0.3 mg IM PRN PRN 12/17/23 03/03/24 Ipratropium/Albuterol [Duoneb] 3 ml INH TID PRN 12/17/23 03/07/24 Metoprolol Tartrate [Lopressor] 25 mg PO BID 12/17/23 03/07/24 Benzonatate [Tessalon] 100 mg PO TID #30 cap 12/20/23 03/07/24 Clopidogrel [Plavix] 75 mg PO DAILY #30 tab 12/20/23 03/07/24 Fluticasone [Flonase] 2 sprays HELENA BID #1 each 12/20/23 03/07/24 Acetaminophen [Tylenol] 650 mg PO Q6H PRN 03/03/24 03/07/24 Alendronate [Fosamax] 70 mg PO DAILY 03/03/24 03/07/24 Ibuprofen [Motrin] 1 tablet PO Q8H PRN 03/03/24 03/07/24 - Allergies Allergies/Adverse Reactions: Allergies Allergy/AdvReac Type Severity Reaction Status Date / Time hydrocodone bitartrate * Allergy Severe Rash Verified 03/28/24 22:07 [From Vicodin] iodine Allergy Severe Nausea Verified 03/28/24 22:07 Penicillins Allergy Severe Respiratory Verified 03/28/24 22:07 Sulfa (Sulfonamide Allergy Severe Respiratory Verified 03/28/24 22:07 Antibiotics) bee venom protein (honey bee) Allergy Respiratory Verified 03/28/24 22:07 - Social History Does the pt smoke?: Yes Smoking Status: Current every day smoker Does the pt drink ETOH?: Yes Does the pt have substance abuse?: No - Immunizations Immunizations are current?: Yes Immunizations: Other immun not current - POLST Patient has POLST: No POLST Status: Full Code PD ED PE NORMAL - Vitals Vital signs reviewed: Yes - General General: Alert and oriented X 3, Well developed/nourished, Other (hoarse voice but able to articulate (I can understand everything she says despite hoarseness)) - HEENT HEENT: Moist mucous membranes - Neck Neck: Supple, no meningeal sign - Cardiac Cardiac: RRR, No murmur - Respiratory Respiratory: No respiratory distress - Derm Derm: Normal color, Warm and dry - Extremities Extremities: No edema PD ED PE EXPANDED - Respiratory Respiratory: Wheezing (bilateral mid-end expiratory wheezingi), Rhonchi (scattered/ nonfocal). No: Rales Results - Vitals Vitals: Vital Signs - 24 hr 03/28/24 03/28/24 03/29/24 22:02 22:26 00:27 Temperature 36.6 C Heart Rate 96 86 Respiratory 24 24 Rate Blood Pressure 131/81 H 124/79 O2 Saturation 95 97 95 If not protocol 4 4 : Oxygen Flow, liters/minute 03/29/24 03/29/24 03/29/24 00:45 02:00 03:35 Temperature Heart Rate 88 89 92 Respiratory 24 20 24 Rate Blood Pressure 118/79 O2 Saturation 95 If not protocol 4 6 5 : Oxygen Flow, liters/minute 03/29/24 03/29/24 03/29/24 04:00 04:35 05:57 Temperature Heart Rate 92 118 H 99 Respiratory 20 24 22 Rate Blood Pressure 94/72 119/72 O2 Saturation 93 If not protocol 4 4 4 : Oxygen Flow, liters/minute Oxygen O2 Source Nasal cannula Oxygen Flow Rate 6 - Labs Labs: Laboratory Tests 03/29/24 03/29/24 03/29/24 00:44 00:50 00:50 WBC 11.0 H RBC 4.37 Hgb 12.3 Hct 38.6 MCV 88.3 MCH 28.1 MCHC 31.9 L RDW 13.5 Plt Count 572 H MPV 9.9 Neut # (Auto) 7.5 H Lymph # (Auto) 1.7 Pickett # (Auto) 1.5 H Eos # (Auto) 0.2 Baso # (Auto) 0.1 Absolute Nucleated RBC 0.00 Nucleated RBC % 0.0 Sodium 137 Potassium 3.5 Chloride 103 Carbon Dioxide 26 Anion Gap 8.0 BUN 12 Creatinine 0.5 L Estimated GFR (MDRD) 123 Glucose 107 H Calcium 9.1 Nasal Adenovirus (PCR) NOT DETECTED Nasal B. parapertussis DNA (PCR) NOT DETECTED Nasal Coronavir 229E PCR NOT DETECTED Nasal Coronavir HKU1 PCR NOT DETECTED Nasal Coronavir NL63 PCR NOT DETECTED Nasal Coronavir OC43 PCR NOT DETECTED Nasal Enterovir/Rhinovir PCR NOT DETECTED Nasal Influenza B PCR NOT DETECTED Nasal Influenza A PCR NOT DETECTED Nasal Parainfluen 1 PCR NOT DETECTED Nasal Parainfluen 2 PCR NOT DETECTED Nasal Parainfluen 3 PCR NOT DETECTED Nasal Parainfluen 4 PCR NOT DETECTED Nasal RSV (PCR) NOT DETECTED Nasal B.pertussis DNA PCR NOT DETECTED Nasal C.pneumoniae (PCR) NOT DETECTED [place] Human Metapneumo PCR NOT DETECTED Nasal M.pneumoniae (PCR) NOT DETECTED Nasal SARS-CoV-2 (PCR) NOT DETECTED - Rads (name of study) chest xray Relevant Findings:: Prelim report reviewed, See rad report CT chest with IV contrast Relevant Findings:: Prelim report reviewed, See rad report PD Medical Decision Making - ED course Complexity details: reviewed results, re-evaluated patient, considered differential, d/w patient ED course: No concerning nor diagnostic findings on CBC, basic metabolic profile. Respiratory PCR panel is negative for the viruses tested on this panel. She is requiring higher supplemental oxygen than her baseline 3 l/min (to maintain pulse ox at or above 90% she requires 4-6 l/min). Patient's oxygenator that she has at home (as well as in the ED at her bedside) only provides a maximum of 3 L/minute of supplemental oxygen. Chest x-ray interpreted by the radiologist as "port-a-cath placement, small subpulmonic right pleural effusion, right lower lobe partial lung opacification could represent pneumonia." A CT scan of her chest was undertaken with IV contrast, which reveals 3.4 x 7.1 cm right paramediastinal nonhomogeneous soft tissue density likely due to known lung cancer, encasing the right upper lobe pulmonary artery and bronchus (these remain patent) and occludes the middle lobe bronchus (the middle lobe is collapsed). The neighboring proximal portions of the right brachiocephalic artery, left common carotid artery, as well as the SVC and azygous veins (these vessels remain patent) are encased partially encased by neighboring superior, anterior and middle mediastinal extensions of the mass. Also noted multi lobar bilateral lung nodules primarily concerning for metastases, moderate simple right pleural effusion, 24 mm thick circumferential pericardial effusion, indeterminate right adrenal nodule. Metastasis cannot be excluded. This is all per the radiologist's interpretation of these images. After DuoNeb and subsequent albuterol neb x 2 (for total of 3 nebulized treatments in the emergency department), the patient tells me she does not feel her dyspnea has improved and she continues to exhibit frequent although non- productive cough. I was informed by ED RN late in my shift that the patient desaturated to 84% ambulating to the bathroom that is in her ED room (thus only a few steps away from her bed) despite being on 4 L/minute supplemental oxygen. There are no beds available at [facility] during my overnight shift, and thus the care of this patient is turned over to the oncoming ED physician (Dr. Garcia) at the end of my shift. Departure - Departure Forms: PCP List
[2024-03-29] MEDS: methylPREDNISolone SUCCINATE 125 MG/2 ML VIAL IVP STA ×2 (00:42→09:07)
[2024-03-29] MEDS: IPRATROPIUM/ALBUTEROL 3 ML NEB INH STA ×2 (00:46→09:11)
[2024-03-29 00:55] LABS: BASOPHILS # (AUTO) 0.1 10^3/uL (0.0-0.1); BASOPHILS % (AUTO) 0.7 %; EOSINOPHILS # (AUTO) 0.2 10^3/uL (0.0-0.7); EOSINOPHILS % (AUTO) 1.6 %; HCT - HEMATOCRIT 38.6 % (37.0-47.0); HGB - HEMOGLOBIN 12.3 g/dL (12.0-16.0); LYMPHOCYTES # (AUTO) 1.7 10^3/uL (1.5-3.5); LYMPHOCYTES % (AUTO) 15.4 %; MEAN CORPUSCULAR HEMOGLOBIN 28.1 pg (27.0-31.0); MEAN CORPUSCULAR HGB CONC 31.9 g/dL (32.0-36.0); MEAN CORPUSCULAR VOLUME 88.3 fL (81.0-99.0); MEAN PLATELET VOLUME 9.9 fL (7.9-10.8); MONOCYTES # (AUTO) 1.5 10^3/uL (0.0-1.0); MONOCYTES % (AUTO) 13.4 %; NEUTROPHILS # (AUTO) 7.5 10^3/uL (1.5-6.6); NEUTROPHILS % (AUTO) 68.4 %; PLT - PLATELET COUNT 572 10^3/uL (130-450); RED BLOOD COUNT 4.37 10^6/uL (4.20-5.40); RED CELL DISTRIBUTION WIDTH 13.5 % (12.0-15.0)
[2024-03-29 01:11] LABS: CALCIUM 9.1 mg/dL (8.5-10.3); CREATININE 0.5 mg/dL (0.6-1.3); POTASSIUM 3.5 mmol/L (3.5-4.5)
--- NOTE | 2024-03-29 01:32 | XRAY Report ---
PROCEDURE: Chest 2V INDICATIONS: dyspnea, cough TECHNIQUE: 2 views of the chest were acquired. COMPARISON: 2 view chest 12/16/2023. FINDINGS: Surgical changes and devices: Port-A-Cath from left-sided approach has been placed, and this extends cephalad into the lower left neck and then caudad across the midline into the distal SVC or upper ri ght atrium. Lungs and pleura: There appears to be a small subpulmonic right pleural effusion and right mid and l ower lung partial opacification. Mediastinum: Mediastinal contours appear normal. Heart size is normal. Bones and chest wall: No suspicious bony lesions. Overlying soft tissues appear unremarkable. IMPRESSION: Port-A-Cath placement, small subpulmonic right pleural effusion, right lower lobe partial lung opacif ication could represent pneumonia. Alternatively post radiation change could produce this appearance. Reviewed by: Tony Gastelum MD on 03/29/2024 1:31 AM PDT Approved by: Tony Gastelum MD on 03/29/2024 1:31 AM PDT Station ID: [id number]
[2024-03-29 01:48] LABS: B. PARAPERTUSSIS- RESP PCR PAN NOT DETECTED; B. PERTUSSIS- RESP PCR PANEL NOT DETECTED; C. PNEUMONIAE- RESP PCR PANEL NOT DETECTED; CORONAVIRUS 229E-RESP PCR NOT DETECTED; CORONAVIRUS HKU1-RESP PCR NOT DETECTED; CORONAVIRUS NL63-RESP PCR NOT DETECTED; CORONAVIRUS OC43-RESP PCR NOT DETECTED; HUMAN METAPNEUMOVIRUS NOT DETECTED; INFLUENZA A- RESP PCR PANEL NOT DETECTED; INFLUENZA B - RESP PCR PANEL NOT DETECTED; M. PNEUMONIAE- RESP PCR PANEL NOT DETECTED; PARAINFLUENZA VIRUS 1 NOT DETECTED; PARAINFLUENZA VIRUS 2 NOT DETECTED; PARAINFLUENZA VIRUS 3 NOT DETECTED; PARAINFLUENZA VIRUS 4 NOT DETECTED; RHINOVIRUS/ENTEROVIRUS NOT DETECTED; RSV- RESP PCR PANEL NOT DETECTED; SARS-CoV-2 -RESP PCR PANEL NOT DETECTED
[2024-03-29] MEDS: ALBUTEROL NEB 2.5 MG/3 ML INH STA ×2 (03:35→04:35)
[2024-03-29] MEDS: AZITHROMYCIN 250 MG TABLET PO STA (03:41)
[2024-03-29] MEDS: ACETAMINOPHEN 325 MG TABLET PO STA (03:41)
[2024-03-29] MEDS ORDERED: ALBUTEROL NEB 2.5 MG/3 ML INH ONE (04:27)
[2024-03-29] MEDS: diphenhydrAMINE INJ 50 MG/ML VIAL IVP STA (04:36)
[2024-03-29] MEDS: iohexoL-300 100 ML VIAL IVP ONE (05:06)
--- NOTE | 2024-03-29 08:33 | CT Report ---
PROCEDURE: Chest W INDICATIONS: dyspnea, cough, lung CA w/ possible airway impinge CONTRAST: OMNI 300 100mls TECHNIQUE: After the administration of intravenous contrast, a CT scan of the chest was performed. Images were recorded and evaluated at appropriate window settings. Reformats: axial MIP of the chest, coronal and sagittal. For radiation dose reduction, the following was used: automated exposure control, adjustme nt of mA and/or kV according to patient size. COMPARISON: CT 12/16/2023 FINDINGS: Image quality: Suboptimal due to motion artifact. Chest wall and lower neck: No thyroid nodule which requires sonographic follow up. No breast mass. En larged right supraclavicular fossa lymph node measuring 1 cm short axis (series 2, image 1). Left [address] st wall port tip terminates in the mid right atrium. Lungs and pleura: A right upper lobe mass measures 4.0 x 3.5 cm. There is wedge-shaped region of low attenuation along the medial right upper lobe. The right middle lobe is collapsed. There is soft tis oscar encasing the anterior right upper lobe segmental bronchus in the entire right middle lobar bronch us. Moderate right-sided pleural effusion. New bilateral solid pulmonary nodules. Left upper lobe wed ge resection. Mediastinum: Heart size is enlarged. Small pericardial effusion. Narrowing of the SVC. Mediastinal ad enopathy, progressed from prior. Examples include: - 1.7 cm short axis prevascular node (series 2, image 22). -2.1 cm right lower paratracheal node (series 2, image 23). Bones: No aggressive osseous abnormality. Upper Abdomen: 1.5 cm right adrenal nodule. IMPRESSION: Interval progression of disease, with a growing right upper lobe mass measuring 4.0 x 3.5 cm, associa conrado soft tissue encasement of the anterior right upper lobe bronchus and the right middle lobe bronch us. There is associated complete collapse of the right middle lobe and atelectasis of the medial right up per lobe. Superimposed infection not excluded. Cardiomegaly with moderate pericardial effusion. No evidence of cardiac tamponade. New bilateral pulmonary nodules. Worsening bilateral mediastinal adenopathy. New right supra clavicul ar fossa adenopathy. New moderate right pleural effusion. Stable right adrenal nodule. Findings are concordant with preliminary interpretation provided by [facility]. Reviewed by: Catarino Law MD on 03/29/2024 8:31 AM PDT Approved by: Catarino Law MD on 03/29/2024 8:31 AM PDT Station ID: [id number]
[2024-03-29] MEDS ORDERED: SODIUM CHLORIDE FLUSH 0.9% 10 ML SYRINGE IVP PRN (14:12)
--- NOTE | 2024-03-29 14:27 | PHARMACY PROGRESS NOTE ---
- Best Possible Medication History Admit Date and Time: Processed by: Pharmacy Medications reviewed in ED?: Yes Medication History completed: Yes Patient Interview: Completed Secondary Source(s): Insurance records As the person ultimately responsible for medication therapy, providers are able to order a medication from an existing home medication list in [facility] via the "Reconcile Routine" prior to Confirmation of that medication by family support specialist. Such practice is discouraged except when the physician, in their clinical judgment, deems that a medical need exists for a medication without regard to previous use.
--- NOTE | 2024-03-29 14:38 | HISTORY & PHYSICAL EXAMINATION ---
Chief Complaint - Chief Complaint Chief Complaint: Shortness of breath History of Present Illness - Admitted From Admitted From:: Emergency room - History of Present Illness HPI Comment/Other: The patient is an extremely pleasant 68-year-old female. Her past medical history is significant for adenocarcinoma of the left lung status postresection on 06/10/2021. She did well until this past November when she was found to have recurrence in the right lung. She has been followed closely by oncology and radiation oncology at [facility]. She is scheduled to start chemotherapy and radiation on 04/05/2024. The patient has a history of chronic respiratory failure and has been on oxygen at home at 2 to 3 L. She has a system that only goes up to 3 L. For the past several weeks she has had worsening shortness of breath and presented to the emergency room for further evaluation and treatment. Workup in the emergency room revealed a white blood cell count of 11.0, hemoglobin of 12.3, platelet level of 572. Chemistry panel was unremarkable other than a mildly elevated glucose of 107. Viral PCR was negative. She tested negative for COVID-19. Chest x-ray revealed a right-sided pleural effusion and right lower lobe partial opacification which could represent pneumonia. She had a CT scan of the chest which revealed interval progression of the right upper lobe mass measuring 4.0 x 3.5 cm associated soft tissue encasement of the anterior right upper lobe bronchus and the right middle lobe bronchus. There is associated complete collapse of the right middle lobe and atelectasis of the medial right upper lobe. Superimposed infection is not excluded. Cardiomegaly with moderate pericardial infusion with no evidence of tamponade. She also was noted to have new bilateral pulmonary nodules and wo rsening mediastinal adenopathy and new right supraclavicular adenopathy. Also a new right pleural effusion. When I went to see the patient she is sitting up in the bed. She has significant conversational dyspnea and appears to be quite winded. She states that the shortness of breath has been worsening for several weeks. She has had no fever or shaking chills. No chest pain or heart palpitations. No nausea vomiting or diarrhea. Her appetite is stable. No urinary complaints. The patient Sister Amparo Mims is her healthcare power of defense attorney. Her telephone number is not available. Also her daughter Madeline Rome [phone] would help make decisions as well. The patient elects to be a full code and a POLST was filled out to this effect. History - Past Medical History Cardiovascular: reports: Hypertension, Angina, MS Respiratory: reports: Asthma, COPD, Sleep apnea, CPAP use, Other Neuro: reports: None Endocrine/Autoimmune: reports: HyPOthyroidism GI: reports: GERD [employer] REPRESENTATIVE: reports: Other (history of cervical cancer) : reports: None HEENT: reports: Chronic vision loss, Chronic sinusitis Psych: reports: None Musculoskeletal: reports: Osteoarthritis, Chronic back pain Derm: reports: None MRSA Hx?: No - Past Surgical History General: reports: Colonoscopy, Other Ortho: reports: Other /[employer] REPRESENTATIVE: reports: Hysterectomy, Other Cardiovascular: reports: Coronary stent, Angioplasty Neuro: reports: Other HEENT: reports: Tonsil/Adenoidectomy - Family & Social History Living Situation: With friend(s) - Substance History Use: Uses substance without health or social issues: Tobacco - POLST Patient has POLST: No POLST Status: Full Code Meds/Allgy - Home Medications Home Medications: Ambulatory Orders Medication Instructions Recorded Confirmed Aspirin EC [Ecotrin] 81 mg PO DAILY 12/31/20 03/29/24 Ergocalciferol [Vitamin D2] 50,000 unit PO MALIN 12/31/20 03/29/24 Levothyroxine Sodium [Synthroid] 75 mcg PO DAILY 12/31/20 03/29/24 Loratadine [Claritin] 10 mg PO DAILY 12/31/20 03/29/24 Montelukast [Singulair] 10 mg PO QPM 12/31/20 03/29/24 Pantoprazole [Protonix] 40 mg PO DAILY 12/31/20 03/29/24 Albuterol Sulfate [Proair Hfa 1 - 2 puffs IH Q4HR PRN 07/14/21 03/29/24 Inhaler] Nitroglycerin 1 spray SL PRN PRN 07/14/21 03/29/24 Metformin HCl [Metformin ER 1,000 mg PO BID 12/16/23 03/29/24 Gastric] EPINEPHrine [Epinephrine] 0.3 mg IM PRN PRN 12/17/23 03/29/24 Ipratropium/Albuterol [Duoneb] 3 ml INH QID 12/17/23 03/29/24 Metoprolol Tartrate [Lopressor] 25 mg PO BID 12/17/23 03/29/24 Clopidogrel [Plavix] 75 mg PO DAILY #30 tab 12/20/23 03/29/24 Acetaminophen [Tylenol] 650 mg PO Q6H PRN 03/03/24 03/29/24 Alendronate [Fosamax] 70 mg PO UD 03/03/24 03/29/24 Ibuprofen [Motrin] 1 tablet PO Q8H PRN 03/03/24 03/29/24 Atorvastatin Calcium [Lipitor] 80 mg PO HS 03/29/24 03/29/24 Benzonatate [Tessalon] 200 mg PO TID 03/29/24 03/29/24 - Allergies Allergies/Adverse Reactions: Allergies Allergy/AdvReac Type Severity Reaction Status Date / Time hydrocodone bitartrate * Allergy Severe Rash Verified 03/28/24 22:07 [From Vicodin] iodine Allergy Severe Nausea Verified 03/28/24 22:07 Penicillins Allergy Severe Respiratory Verified 03/28/24 22:07 Sulfa (Sulfonamide Allergy Severe Respiratory Verified 03/28/24 22:07 Antibiotics) bee venom protein (honey bee) Allergy Respiratory Verified 03/28/24 22:07 Review of Systems - Constitutional Constitutional: reports: Fatigue - Respiratory Respiratory: reports: Cough, Wheezing, SOB at rest, SOB with exertion - All Other Systems All Other Systems: reports: Reviewed and negative Prior Level of Functionality: The patient lives at home. She normally is independent with her ADLs and ambulates with no assistive devices Exam - Vital Signs Reviewed Vital Signs: Yes Vital Signs: Vital Signs x48h Pulse Resp BP Pulse Ox O2 Flow Rate 03/29/24 12:00 107 H 22 120/70 92 4 03/29/24 10:00 103 H 20 131/62 H 92 03/29/24 09:13 99 22 03/29/24 08:00 110 H 22 131/67 H 92 2 - Physical Exam General Appearance: positive: Anxious, Other (She has significant conversational dyspnea) Eyes Bilateral: positive: Normal inspection ENT: positive: ENT inspection nml Neck: positive: Nml inspection Respiratory: positive: Chest non-tender, Other (She has coarse breath sounds noted throughout all lung lo. She is diminished in the right lower base) Cardiovascular: positive: Regular rate & rhythm, No murmur, No gallop. negative: Friction rub Abdomen: positive: Non-tender, No organomegaly, Nml bowel sounds Skin: positive: Color nml, No rash, Warm, Dry Extremities: positive: Non-tender, Full ROM Neurologic/Psychiatric: positive: Oriented x3, CN's nml (2-12) Sepsis Event Note (H) - Evaluation Current Stage of Sepsis: Ruled out Conclusion/Plan - Problem List (1) Acute and chronic respiratory failure Conclusion/Plan: The patient is above her baseline oxygen requirements. This is due to new pleural effusion, worsening lung cancer and COPD exacerbation. I cannot rule out underlying infection. She does not appear to have an acute pneumonia. Continue oxygen support as needed. Her current oxygen system at home only goes up to 3 L. We will need to get a new oxygen system set up at home. The care coordinators have been consulted (2) Pleural effusion, right Conclusion/Plan: Thoracentesis with appropriate lab studies has been ordered. Also cytology. Unfortunately this may be a malignant effusion. There has been a delay from her most recent cancer diagnosis to the initiation of treatment that we will start next week. There is evidence of significant progression on her CT scan. (3) COPD exacerbation Conclusion/Plan: She will receive scheduled DuoNeb treatments. She will be placed on 40 mg of IV Solu-Medrol 3 times daily. (4) Adenocarcinoma of lung Conclusion/Plan: The patient had left wedge lung resection in 2020 but has a new recurrence in the right lung that is in the process of being worked up. She is due to initiate chemotherapy next week. She has a port in place. CT scan today shows worsening (5) Bronchitis Conclusion/Plan: The patient does not look acutely ill but due to the fact that she is going to start chemotherapy next week and it is difficult to tell if she has an underlying infection we will place her on IV. Levaquin for now (6) Pericardial effusion Conclusion/Plan: She has a moderate pericardial effusion noted on CT of the chest. Will order a 2D cardiac echo. There was no evidence of tamponade on CT scan. (7) Tobacco dependence Conclusion/Plan: Will place a nicotine patch. She is highly encouraged to quit smoking (8) CAD (coronary artery disease) Conclusion/Plan: The patient has had an MS in the past and has a stent in place. She will continue her home regimen of Plavix, atorvastatin and metoprolol. (9) Hypothyroid Conclusion/Plan: Continue Synthroid (10) Hypertension Conclusion/Plan: Continue metoprolol tartrate 25 mg twice daily (11) Hyperlipidemia Conclusion/Plan: Continue atorvastatin 80 mg daily (12) Osteoporosis Conclusion/Plan: She takes Fosamax at home. (13) Obesity (BMI 30-39.9) Conclusion/Plan: Encourage good p.o. intake (14) CLEMENTE (obstructive sleep apnea) Conclusion/Plan: CPAP will be set up here in the hospital. However at this point due to the patient's chronic respiratory status for CPAP device appears to be insufficient for her severe exertional dyspnea. The patient gets very dyspneic with any exertion. I am ordering a home noninvasive home ventilator as patient gets severely dyspneic with exertion or any ambulation and with episodes of hypoxia along with her dyspnea it really set her back and causes patient to tripod and speak in 2 word sentences. The patient is needed for treatment of her chronic respiratory failure and severe dyspnea exacerbated by her COPD and lung cancer. A NH for the advice will help treat her symptoms and give her a better quality of life and help reduce hospital admissions (15) Reactive thrombocytosis Conclusion/Plan: Likely reactive to her acute illness Disposition: The patient will be fully admitted to the hospital. At this point I expect her hospitalization to span greater than 2 midnights. The patient needs a thoracentesis, treatment for her COPD exacerbation and new home oxygen set up at home as well as an NHV device set up as well. Time spent: 35 minutes - Lab Results Fish Bones: 03/29/24 00:50 03/29/24 00:50
[2024-03-29] MEDS: NICOTINE 21 MG PATCH TOP STA (15:05)
[2024-03-29] MEDS: levoFLOXacin 750 MG/150 ML 750 MG/150 ML BAG IV SCH (15:05)
[2024-03-29] MEDS: SODIUM CHLORIDE FLUSH 0.9% 10 ML SYRINGE IVP SCH (16:37)
[2024-03-29] MEDS: BENZONATATE 100 MG CAPSULE PO SCH (16:59)
[2024-03-29] MEDS: methylPREDNISolone SUCCINATE 40 MG/ML VIAL IVP SCH (17:00)
[2024-03-29] MEDS: PANTOPRAZOLE 40 MG TABLET PO SCH (17:00)
[2024-03-29] MEDS: IPRATROPIUM/ALBUTEROL 3 ML NEB INH SCH ×2 (17:39→21:26)
[2024-03-29] MEDS: METOPROLOL TARTRATE 25 MG TABLET PO SCH (20:45)
[2024-03-29] MEDS: MONTELUKAST 10 MG TABLET PO SCH (20:46)
[2024-03-29] MEDS ORDERED: BENZONATATE 100 MG CAPSULE PO SCH (22:00)
[2024-03-30 05:58] LABS: BASOPHILS % (AUTO) 0.1 %; HCT - HEMATOCRIT 36.4 % (37.0-47.0); HGB - HEMOGLOBIN 11.7 g/dL (12.0-16.0); LYMPHOCYTES # (AUTO) 0.8 10^3/uL (1.5-3.5); LYMPHOCYTES % (AUTO) 4.7 %; MEAN CORPUSCULAR HEMOGLOBIN 28.4 pg (27.0-31.0); MEAN CORPUSCULAR HGB CONC 32.1 g/dL (32.0-36.0); MEAN CORPUSCULAR VOLUME 88.3 fL (81.0-99.0); MEAN PLATELET VOLUME 10.4 fL (7.9-10.8); MONOCYTES # (AUTO) 0.6 10^3/uL (0.0-1.0); MONOCYTES % (AUTO) 3.5 %; NEUTROPHILS % (AUTO) 90.8 %; PLT - PLATELET COUNT 614 10^3/uL (130-450); RED BLOOD COUNT 4.12 10^6/uL (4.20-5.40); RED CELL DISTRIBUTION WIDTH 13.7 % (12.0-15.0); WHITE BLOOD COUNT 17.6 x10^3/uL (4.8-10.8)
[2024-03-30 05:59] LABS: INR 1.3 (0.8-1.2)
[2024-03-30 06:06] LABS: PARTIAL THROMBOPLASTIN TIME 27.5 secs (24.9-33.3)
[2024-03-30 06:11] LABS: ALBUMIN 3.7 g/dL (3.2-5.5); BILIRUBIN,DIRECT 0.18 mg/dL (0.03-0.18); BILIRUBIN,TOTAL 0.8 mg/dL (0.2-1.0); CALCIUM 9.5 mg/dL (8.5-10.3); CREATININE 0.5 mg/dL (0.6-1.3); MAGNESIUM 1.9 mg/dL (1.7-2.3); PHOSPHORUS 4.2 mg/dL (2.5-5.0); TOTAL PROTEIN 6.6 g/dL (6.4-8.9)
[2024-03-30] MEDS: LEVOTHYROXINE 75 MCG TABLET PO SCH (06:28)
[2024-03-30] MEDS: ASPIRIN EC 81 MG TABLET PO SCH (08:23)
[2024-03-30] MEDS: CLOPIDOGREL 75 MG TABLET PO SCH (08:23)
[2024-03-30] MEDS: ATORVASTATIN 40 MG TABLET PO SCH (08:23)
[2024-03-30] MEDS: LORATADINE 10 MG TABLET PO SCH (08:24)
--- NOTE | 2024-03-30 08:53 | PROVIDER PROGRESS NOTE ---
Subjective - Prog Note Date Prog Note Date: 03/30/24 Prog Note Time: 08:50 - Subjective Subjective: The patient is somewhat improved this morning. She is still requiring 5 L of oxygen but has had significant improvement in her conversational dyspnea. The care managers are working on setting up new oxygen for her at home and possibly getting a trilogy machine. The patient was scheduled to get a thoracentesis today. However she had an ultrasound that does not reveal that there is enough fluid to have the procedure. Today she denies fever or chills. No chest pain or heart palpitations. She still has cough with bronchospasm at times. She is no longer wheezing. No nausea vomiting or diarrhea. No urinary complaints. Current Medications - Current Medications Current Medications: Active Medications Generic Name Dose Route Start Last Admin Trade Name Freq PRN Reason Stop Dose Admin Albuterol/Ipratropium 3 ml 03/29/24 17:41 03/29/24 21:26 Ipratropium/Albuterol 3 Ml Neb INH 3 ml RTQID HINA Administration Aspirin 81 mg 03/30/24 09:00 03/30/24 08:23 Aspirin Ec 81 Mg Tablet PO 81 mg DAILY HINA Administration Atorvastatin Calcium 80 mg 03/30/24 09:00 03/30/24 08:23 Atorvastatin 40 Mg Tablet PO 80 mg DAILY HINA Administration Benzonatate 200 mg 03/29/24 17:00 03/30/24 08:23 Benzonatate 100 Mg Capsule PO 200 mg QID HINA Administration Clopidogrel Bisulfate 75 mg 03/30/24 09:00 03/30/24 08:23 Clopidogrel 75 Mg Tablet PO 75 mg DAILY HINA Administration Ergocalciferol 50,000 unit 04/03/24 09:00 Ergocalciferol 50,000 Unit Capsule PO MALIN HINA Levofloxacin 750 mg in 150 mls @ 100 mls/hr 03/29/24 15:00 03/29/24 19:43 Levaquin 750 Mg/150 Ml IV Infused Q24H HINA Infusion Levothyroxine Sodium 75 mcg 03/30/24 07:00 03/30/24 06:28 Levothyroxine 75 Mcg Tablet PO 75 mcg QDAC HINA Administration Loratadine 10 mg 03/30/24 09:00 03/30/24 08:24 Loratadine 10 Mg Tablet PO 10 mg DAILY HINA Administration Methylprednisolone 40 mg 03/29/24 15:00 03/30/24 06:28 Methylprednisolone Succinate 40 Mg/Ml Vial IVP 40 mg Q8H HINA Administration Metoprolol Tartrate 25 mg 03/29/24 21:00 03/30/24 08:23 Metoprolol Tartrate 25 Mg Tablet PO 25 mg BID HINA Administration Montelukast Sodium 10 mg 03/29/24 21:00 03/29/24 20:46 Montelukast 10 Mg Tablet PO 10 mg QPM HINA Administration Pantoprazole Sodium 40 mg 03/29/24 16:00 03/30/24 06:28 Pantoprazole 40 Mg Tablet PO 40 mg BIDAC HINA Administration Sodium Chloride 10 ml 03/29/24 14:12 Sodium Chloride Flush 0.9% 10 Ml Syringe IVP PRN PRN NEEDED PER PROVIDER ORDERS Sodium Chloride 10 ml 03/29/24 17:00 03/30/24 08:24 Sodium Chloride Flush 0.9% 10 Ml Syringe IVP 10 ml 0100,0900,1700 HINA Administration Aspirin EC [Ecotrin] 81 mg PO DAILY 12/31/20 Ergocalciferol [Vitamin D2] 50,000 unit PO OAW 12/31/20 Levothyroxine Sodium [Synthroid] 75 mcg PO DAILY 12/31/20 Loratadine [Claritin] 10 mg PO DAILY 12/31/20 Montelukast [Singulair] 10 mg PO QPM 12/31/20 Pantoprazole [Protonix] 40 mg PO BID 12/31/20 Albuterol Sulfate [Proair Hfa Inhaler] 1 - 2 puffs IH Q4HR PRN 07/14/21 Nitroglycerin 1 spray SL PRN PRN 07/14/21 Metformin HCl [Metformin ER Gastric] 1,000 mg PO BID 12/16/23 EPINEPHrine [Epinephrine] 0.3 mg IM PRN PRN 12/17/23 Ipratropium/Albuterol [Duoneb] 3 ml INH QID 12/17/23 Metoprolol Tartrate [Lopressor] 25 mg PO BID 12/17/23 Acetaminophen [Tylenol] 650 mg PO Q6H PRN 03/03/24 Alendronate [Fosamax] 70 mg PO OAW 03/03/24 Ibuprofen [Motrin] 1 tablet PO Q8H PRN 03/03/24 Atorvastatin Calcium [Lipitor] 80 mg PO HS 03/29/24 Benzonatate [Tessalon] 200 mg PO QID 03/29/24 Objective - Vital Signs/Intake & Output Reviewed Vital Signs: Yes Vital Signs: Vital Signs x48h Temp Pulse Resp BP Pulse Ox O2 Flow Rate 03/30/24 07:50 37 C 86 20 124/82 H 93 5 03/30/24 05:18 5 03/30/24 05:00 36.7 C 84 18 128/84 H 94 5 Intake & Output: Intake & Output 03/27/24 03/28/24 03/29/24 03/30/24 23:59 23:59 23:59 23:59 Intake Total 320 60 Balance 320 60 - Objective General Appearance: positive: No acute distress, Other (She is receiving oxygen via nasal cannula) ENT: positive: ENT inspection nml Neck: positive: Nml inspection Respiratory: positive: Chest non-tender, Other (She is somewhat diminished in the right lower base. She has some scattered rhonchi bilaterally.) Cardiovascular: positive: Regular rate & rhythm, No murmur, No gallop. negat gabriela: Friction rub Abdomen: positive: Non-tender, No organomegaly, Nml bowel sounds Skin: positive: Color nml, No rash, Warm, Dry Extremities: positive: Non-tender, Full ROM Neurologic/Psychiatric: positive: Oriented x3, CN's nml (2-12) - Lab Results Fish Bones: 03/30/24 05:08 03/30/24 05:08 Other Labs: Lab Results x24hrs 03/30/24 03/30/24 03/30/24 Range/Units 05:08 05:08 05:08 WBC 17.6 H (4.8-10.8) x10^3/uL RBC 4.12 L (4.20-5.40) 10^6/uL Hgb 11.7 L (12.0-16.0) g/dL Hct 36.4 L (37.0-47.0) % MCV 88.3 (81.0-99.0) fL MCH 28.4 (27.0-31.0) pg MCHC 32.1 (32.0-36.0) g/dL RDW 13.7 (12.0-15.0) % Plt Count 614 H (130-450) 10^3/uL MPV 10.4 (7.9-10.8) fL Neut # (Auto) 16.0 H (1.5-6.6) 10^3/uL Lymph # (Auto) 0.8 L (1.5-3.5) 10^3/uL [place] # (Auto) 0.6 (0.0-1.0) 10^3/uL Eos # (Auto) 0.0 (0.0-0.7) 10^3/uL Baso # (Auto) 0.0 (0.0-0.1) 10^3/uL Absolute Nucleated RBC 0.00 x10^3/uL Nucleated RBC % 0.0 /100WBC PT 14.0 H (9.9-12.6) secs INR 1.3 H (0.8-1.2) APTT 27.5 (24.9-33.3) secs Sodium 137 (135-145) mmol/L Potassium 4.0 (3.5-4.5) mmol/L Chloride 103 (101-111) mmol/L Carbon Dioxide 26 (21-32) mmol/L Anion Gap 8.0 (6-13) BUN 15 (6-20) mg/dL Creatinine 0.5 L (0.6-1.3) mg/dL Estimated GFR (MDRD) 123 (>89) Glucose 239 H (74-104) mg/dL Calcium 9.5 (8.5-10.3) mg/dL Phosphorus 4.2 (2.5-5.0) mg/dL Magnesium 1.9 (1.7-2.3) mg/dL Total Bilirubin 0.8 (0.2-1.0) mg/dL Direct Bilirubin 0.18 (0.03-0.18) mg/dL AST 10 (10-42) IU/L ALT 16 (10-60) IU/L Alkaline Phosphatase 96 (42-121) IU/L Lactate Dehydrogenase (140-271) IU/L Total Protein 6.6 (6.4-8.9) g/dL Albumin 3.7 (3.2-5.5) g/dL Globulin 2.9 (2.1-4.2) g/dL 03/30/24 Range/Units 05:08 WBC (4.8-10.8) x10^3/uL RBC (4.20-5.40) 10^6/uL Hgb (12.0-16.0) g/dL Hct (37.0-47.0) % MCV (81.0-99.0) fL MCH (27.0-31.0) pg MCHC (32.0-36.0) g/dL RDW (12.0-15.0) % Plt Count (130-450) 10^3/uL MPV (7.9-10.8) fL Neut # (Auto) (1.5-6.6) 10^3/uL Lymph # (Auto) (1.5-3.5) 10^3/uL [place] # (Auto) (0.0-1.0) 10^3/uL Eos # (Auto) (0.0-0.7) 10^3/uL Baso # (Auto) (0.0-0.1) 10^3/uL Absolute Nucleated RBC x10^3/uL Nucleated RBC % /100WBC PT (9.9-12.6) secs INR (0.8-1.2) APTT (24.9-33.3) secs Sodium (135-145) mmol/L Potassium (3.5-4.5) mmol/L Chloride (101-111) mmol/L Carbon Dioxide (21-32) mmol/L Anion Gap (6-13) BUN (6-20) mg/dL Creatinine (0.6-1.3) mg/dL Estimated GFR (MDRD) (>89) Glucose (74-104) mg/dL Calcium (8.5-10.3) mg/dL Phosphorus (2.5-5.0) mg/dL Magnesium (1.7-2.3) mg/dL Total Bilirubin (0.2-1.0) mg/dL Direct Bilirubin (0.03-0.18) mg/dL AST (10-42) IU/L ALT (10-60) IU/L Alkaline Phosphatase (42-121) IU/L Lactate Dehydrogenase 143 (140-271) IU/L Total Protein (6.4-8.9) g/dL Albumin (3.2-5.5) g/dL Globulin (2.1-4.2) g/dL ABX Reporting Has patient been on IV antibiotics over the past 48 hours?: No Sepsis Event Note (H) - Evaluation Current Stage of Sepsis: Ruled out Assessment/Plan - Problem List (1) Acute and chronic respiratory failure Impression: The patient is still requiring increased oxygen. I believe this will be her new baseline until her cancer can be treated. Continue therapy as outlined below. The care managers have been consulted to set up oxygen at home for her. (2) Pleural effusion, right Impression: Unfortunately there is not enough fluid to drain. This could be a malignant effusion. She is scheduled to start chemotherapy on April 05, 2024 at [facility]. (3) COPD exacerbation Impression: For now she will continue 40 mg of Solu-Medrol every 8 hours. She will continue scheduled breathing treatments. (4) Adenocarcinoma of lung Impression: She has had a recurrence of cancer in the right lung. Previously had adenocarcinoma of the left lung that was resected. There has been some delay in getting her treatment started. She now has a port in place. She is scheduled to start chemotherapy and radiation on April 05, 2024 at [facility]. (5) Bronchitis Impression: Continue Levaquin. This is day #2 of treatment (6) Pericardial effusion Impression: This was noted on CT scan. Echocardiogram has been ordered. There was no evidence of tamponade on CT scan. (7) Tobacco dependence Impression: She has a nicotine patch in place. She is highly encouraged to quit smoking (8) CAD (coronary artery disease) Impression: Continue Plavix, ASA, atorvastatin and metoprolol (9) Hypothyroid Impression: Continue home dose of Synthroid (10) Hypertension Impression: Continue metoprolol (11) Hyperlipidemia Impression: Continue high-dose atorvastatin (12) Osteoporosis Impression: She takes Fosamax at home. (13) Obesity (BMI 30-39.9) Impression: At this point encourage good p.o. intake. The dietitian will see her. (14) CLEMENTE (obstructive sleep apnea) Impression: Continue CPAP. The case supervisor have been consulted to possibly help get her a trilogy machine at home. (15) Reactive thrombocytosis Impression: Reactive likely due to her underlying cancer and respiratory issues Disposition: Inpatient hospitalization remains necessary. At this point I believe the patient needs ongoing parenteral steroids. We are not going to proceed with thoracentesis. degreaser operator are working on getting oxygen and a trilogy honing machine set up operator at home. I suspect she will be able to be discharged from the hospital in the next 24 to 48 hours. Time spent: 35 minutes
[2024-03-30] MEDS ORDERED: ENOXAPARIN 40 MG/0.4 ML SYRINGE SUBQ SCH (09:00)
[2024-03-30] MEDS ORDERED: PANTOPRAZOLE 40 MG TABLET PO SCH (09:00)
--- NOTE | 2024-03-30 14:32 | Ultrasound Report ---
PROCEDURE: Chest INDICATIONS: RT Pleural Effusion, Eval for Thora -therapeutic and diagnostic TECHNIQUE: Real-time scanning was performed, and a suitable site was marked by the assisted living associate for thoracentesis to be performed by the referring clinician. COMPARISON: None. FINDINGS: An mild effusion is noted in the right thorax. IMPRESSION: Small right effusion, borderline for therapeutic evaluation. Reviewed by: Radha Dickey MD on 03/30/2024 2:31 PM PDT Approved by: Radha Dickey MD on 03/30/2024 2:31 PM PDT Station ID: [id number]
[2024-03-31 05:30] LABS: BASOPHILS % (AUTO) 0.1 %; HCT - HEMATOCRIT 34.9 % (37.0-47.0); HGB - HEMOGLOBIN 11.1 g/dL (12.0-16.0); LYMPHOCYTES # (AUTO) 0.7 10^3/uL (1.5-3.5); LYMPHOCYTES % (AUTO) 3.9 %; MEAN CORPUSCULAR HEMOGLOBIN 28.4 pg (27.0-31.0); MEAN CORPUSCULAR HGB CONC 31.8 g/dL (32.0-36.0); MEAN CORPUSCULAR VOLUME 89.3 fL (81.0-99.0); MONOCYTES # (AUTO) 0.7 10^3/uL (0.0-1.0); MONOCYTES % (AUTO) 3.9 %; NEUTROPHILS # (AUTO) 16.8 10^3/uL (1.5-6.6); NEUTROPHILS % (AUTO) 91.6 %; PLT - PLATELET COUNT 570 10^3/uL (130-450); RED BLOOD COUNT 3.91 10^6/uL (4.20-5.40); RED CELL DISTRIBUTION WIDTH 14.1 % (12.0-15.0); WHITE BLOOD COUNT 18.4 x10^3/uL (4.8-10.8)
[2024-03-31 05:51] LABS: ALBUMIN 3.5 g/dL (3.2-5.5); BILIRUBIN,DIRECT 0.13 mg/dL (0.03-0.18); BILIRUBIN,TOTAL 0.6 mg/dL (0.2-1.0); CALCIUM 9.2 mg/dL (8.5-10.3); CREATININE 0.5 mg/dL (0.6-1.3); MAGNESIUM 1.8 mg/dL (1.7-2.3); PHOSPHORUS 3.7 mg/dL (2.5-5.0); POTASSIUM 4.2 mmol/L (3.5-4.5); TOTAL PROTEIN 6.1 g/dL (6.4-8.9)
[2024-03-31 08:50] VITALS: BP 130/79; O2SAT 91
--- NOTE | 2024-03-31 10:59 | Discharge Plan ---
Discharge Plan Problem Reviewed?: Yes Disposition: Home, Self Care Condition: Serious Prescriptions: levoFLOXacin 750 MG/150 ML [Levaquin 750 mg/150 ml] 750 mg IV Q24H #5 each predniSONE [Prednisone] See Rx Instructions .ROUTE .COMPLEX #39 tab Diet: Regular Activity Restrictions: Activity as Tolerated Plan of Treatment: You were admitted to the hospital with worsening hypoxia due to your lung cancer. You also were having a COPD exacerbation. You have improved with treatment in the hospital. You currently are on 5 L of oxygen. Home oxygen is being set up at home to accommodate this. You do have a new right pleural effusion that your oncologist will need to keep an eye on going forward. Please keep your appointment next week to initiate your chemoradiation. I am sending you out to complete a course of antibiotic therapy as well as a steroid taper. Assessment: 1. Acute on chronic respiratory failure Previously on 2 L of oxygen. At the time of discharge she is now requiring 5 L of oxygen [id number]. She has been treated for a COPD exacerbation and bronchitis with no improvement in her oxygen requirements. CT of the chest reveals significant worsening of her lung cancer and new right pleural effusion. I believe she is going to have increased oxygen requirements going forward until she can start her chemoradiation next week. We have set up new home oxygen at home at discharge. 2. Right pleural effusion This is new from previous imaging. Thoracentesis was ordered but ultrasound revealed that there was not enough fluid to drain. This could be a malignant effusion and will need to be followed closely in the outpatient setting 3. COPD exacerbation She received IV Solu-Medrol during this hospitalization. She should continue her home bronchodilators and I have written for a prednisone taper at discharge. 4. Adenocarcinoma of the right lung She previously had adenocarcinoma of the left lung that was resected in 2020. She now has recurrence in the right lung. She has a port in place. She is scheduled to start chemoradiation on April 05, 2024 at [facility] CT of the chest reveals interval progression of disease with a growing right upper lobe mass measuring 4 x 3.5 cm with associated soft tissue encasement of the anterior right upper lobe bronchus and right middle lobe bronchus. There is associated complete collapse of the right middle lobe. Also new pulmonary nodules and worsening bilateral mediastinal adenopathy as well as new right supraclavicular adenopathy. She has a new moderate right pleural effusion as well. 5. Bronchitis No definitive evidence of pneumonia but infection is suspected. She will complete a course of p.o. Levaquin at discharge. 6. Pericardial effusion This was noted on CT of the chest. There was no evidence of tamponade on CT scan. Echocardiogram was ordered which confirmed a moderate pericardial effusion with no tamponade. She was noted to have normal left ventricular ejection fraction and no significant valvular abnormalities. Normal RV function as well. Her pericardial effusion will need to be followed closely as an outpatient 7. Tobacco dependent She is highly encouraged to quit smoking 8. Coronary artery disease Continue aspirin, Plavix, atorvastatin and metoprolol 9. Hypothyroid Continue home dose of Synthroid 10. Hyperlipidemia Continue high-dose atorvastatin 12. Osteoporosis Continue Fosamax as scheduled 13. Obesity BMI 32.2 At this point encourage good p.o. intake 14. Obstructive sleep apnea Continue CPAP. Change to inpatient 15. Reactive thrombocytosis Likely due to underlying malignancy and respiratory issues No Smoking: If you smoke, Please STOP! Call for help.
--- NOTE | 2024-03-31 11:09 | DISCHARGE SUMMARY ---
Discharge Summary Admit Date: 03/29/24 Discharge Date: 03/31/24 Discharging Provider: Jimena Vo PA-C Primary Care Provider: Malina Suh MD Code Status: Attempt Resuscitation Condition at Discharge: Serious Discharge Disposition: 01 Home, Self Care - DIAGNOSES Discharge Diagnoses with Status of Each Condition: 1. Acute on chronic respiratory failure Previously on 2 L of oxygen. At the time of discharge she is now requiring 5 L of oxygen [id number]. She has been treated for a COPD exacerbation and bronchitis with no improvement in her oxygen requirements. CT of the chest reveals significant worsening of her lung cancer and new right pleural effusion. I believe she is going to have increased oxygen requirements going forward until she can start her chemoradiation next week. We have set up new home oxygen at home at discharge. 2. Right pleural effusion This is new from previous imaging. Thoracentesis was ordered but ultrasound revealed that there was not enough fluid to drain. This could be a malignant effusion and will need to be followed closely in the outpatient setting 3. COPD exacerbation She received IV Solu-Medrol during this hospitalization. She should continue her home bronchodilators and I have written for a prednisone taper at discharge. 4. Adenocarcinoma of the right lung She previously had adenocarcinoma of the left lung that was resected in 2020. She now has recurrence in the right lung. She has a port in place. She is scheduled to start chemoradiation on April 05, 2024 at [facility] CT of the chest reveals interval progression of disease with a growing right upper lobe mass measuring 4 x 3.5 cm with associated soft tissue encasement of the anterior right upper lobe bronchus and right middle lobe bronchus. There is associated complete collapse of the right middle lobe. Also new pulmonary nodules and worsening bilateral mediastinal adenopathy as well as new right supraclavicular adenopathy. She has a new moderate right pleural effusion as well. 5. Bronchitis No definitive evidence of pneumonia but infection is suspected. She will complete a course of p.o. Levaquin at discharge. 6. Pericardial effusion This was noted on CT of the chest. There was no evidence of tamponade on CT scan. Echocardiogram was ordered which confirmed a moderate pericardial effusion with no tamponade. She was noted to have normal left ventricular ejection fraction and no significant valvular abnormalities. Normal RV function as well. Her pericardial effusion will need to be followed closely as an outpatient 7. Tobacco dependent She is highly encouraged to quit smoking 8. Coronary artery disease Continue aspirin, Plavix, atorvastatin and metoprolol 9. Hypothyroid Continue home dose of Synthroid 10. Hyperlipidemia Continue high-dose atorvastatin 12. Osteoporosis Continue Fosamax as scheduled 13. Obesity BMI 32.2 At this point encourage good p.o. intake 14. Obstructive sleep apnea Continue CPAP. Change to inpatient 15. Reactive thrombocytosis Likely due to underlying malignancy and respiratory issues - HPI History of Present Illness: The patient is an extremely pleasant 68-year-old female. Her past medical history is significant for adenocarcinoma of the left lung status postresection on 06/10/2021. She did well until this past November when she was found to have recurrence in the right lung. She has been followed closely by oncology and radiation oncology at [facility]. She is scheduled to start chemotherapy and radiation on 04/05/2024. The patient has a history of chronic respiratory failure and has been on oxygen at home at 2 to 3 L. She has a system that only goes up to 3 L. For the past several weeks she has had worsening shortness of breath and presented to the emergency room for further evaluation and treatment. Workup in the emergency room revealed a white blood cell count of 11.0, hemoglobin of 12.3, platelet level of 572. Chemistry panel was unremarkable other than a mildly elevated glucose of 107. Viral PCR was negative. She tested negative for COVID-19. Chest x-ray revealed a right-sided pleural effusion and right lower lobe partial opacification which could represent pneumonia. She had a CT scan of the chest which revealed interval progression of the right upper lobe mass measuring 4.0 x 3.5 cm associated soft tissue encasement of the anterior right upper lobe bronchus and the right middle lobe bronchus. There is associated complete collapse of the right middle lobe and atelectasis of the medial right upper lobe. Superimposed infection is not excluded. Cardiomegaly with moderate pericardial infusion with no evidence of tamponade. She also was noted to have new bilateral pulmonary nodules and worsening mediastinal adenopathy and new right supraclavicular adenopathy. Also a new right pleural effusion. When I went to see the patient she is sitting up in the bed. She has significant conversational dyspnea and appears to be quite winded. She states that the shortness of breath has been worsening for several weeks. She has had no fever or shaking chills. No chest pain or heart palpitations. No nausea vomiting or diarrhea. Her appetite is stable. No urinary complaints. The patient Sister Amparo Mims is her healthcare power of immigration attorney. Her telephone number is not available. Also her daughter Madeline Rome [phone] would help make decisions as well. The patient elects to be a full code and a POLST was filled out to this effect. - HOSPITAL COURSE Hospital Course: The patient was admitted to the hospital. She had a moderate new right pleural effusion as well as a moderate pericardial effusion noted on CT of the chest. A thoracentesis was ordered however ultimately ultrasound revealed that there was not enough fluid to safely drain. She was treated for a COPD exacerbation as well as acute bronchitis. The patient symptomatically is doing much better but is still requiring 5 L of oxygen at discharge. Her oxygen system that she had at home only went up to 3 L. We have set up new home oxygen for the patient and she will be discharged on 5 L of oxygen at this time. Her oxygen desaturated station test revealed that she quickly dropped to 86% on room air just sitting in the bed. The patient should keep her scheduled appointments next week to initiate her chemoradiation. Her oncologist should be aware that she does have a new right pleural effusion as well as pericardial effusion. I have written for her to complete a steroid taper as well as a course of antibiotics with Levaquin at discharge. At this point maximum hospital benefit has been reached. Patient will be discharged today in stable condition. - ALLERGIES Allergies/Adverse Reactions: Allergies Allergy/AdvReac Type Severity Reaction Status Date / Time hydrocodone bitartrate * Allergy Severe Rash Verified 03/28/24 22:07 [From Vicodin] iodine Allergy Severe Nausea Verified 03/28/24 22:07 Penicillins Allergy Severe Respiratory Verified 03/28/24 22:07 Sulfa (Sulfonamide Allergy Severe Respiratory Verified 03/28/24 22:07 Antibiotics) bee venom protein (honey bee) Allergy Respiratory Verified 03/28/24 22:07 - MEDICATIONS Home Medications: Ambulatory Orders Medication Instructions Recorded Confirmed Aspirin EC [Ecotrin] 81 mg PO DAILY 12/31/20 03/29/24 Ergocalciferol [Vitamin D2] 50,000 unit PO OAW 12/31/20 03/29/24 Levothyroxine Sodium [Synthroid] 75 mcg PO DAILY 12/31/20 03/29/24 Loratadine [Claritin] 10 mg PO DAILY 12/31/20 03/29/24 Montelukast [Singulair] 10 mg PO QPM 12/31/20 03/29/24 Pantoprazole [Protonix] 40 mg PO BID 12/31/20 03/29/24 Albuterol Sulfate [Proair Hfa 1 - 2 puffs IH Q4HR PRN 07/14/21 03/29/24 Inhaler] Nitroglycerin 1 spray SL PRN PRN 07/14/21 03/29/24 Metformin HCl [Metformin ER 1,000 mg PO BID 12/16/23 03/29/24 Gastric] EPINEPHrine [Epinephrine] 0.3 mg IM PRN PRN 12/17/23 03/29/24 Ipratropium/Albuterol [Duoneb] 3 ml INH QID 12/17/23 03/29/24 Metoprolol Tartrate [Lopressor] 25 mg PO BID 12/17/23 03/29/24 Clopidogrel [Plavix] 75 mg PO DAILY #30 tab 12/20/23 03/29/24 Acetaminophen [Tylenol] 650 mg PO Q6H PRN 03/03/24 03/29/24 Alendronate [Fosamax] 70 mg PO OAW 03/03/24 03/29/24 Ibuprofen [Motrin] 1 tablet PO Q8H PRN 03/03/24 03/29/24 Atorvastatin Calcium [Lipitor] 80 mg PO HS 03/29/24 03/29/24 Benzonatate [Tessalon] 200 mg PO QID 03/29/24 03/29/24 levoFLOXacin 750 MG/150 ML 750 mg IV Q24H #5 each 03/31/24 [Levaquin 750 mg/150 ml] predniSONE [Prednisone] See Rx Instructions .ROUTE 03/31/24 .COMPLEX #39 tab - PHYSICAL EXAM AT DISCHARGE General Appearance: positive: No acute distress, Other (She is receiving oxygen via nasal cannula at 5 L) Eyes Bilateral: positive: Normal inspection ENT: positive: ENT inspection nml Neck: positive: Nml inspection Respiratory: positive: Chest non-tender, Other (She has some scattered coarse rhonchi anteriorly. She is diminished in the right lower base) Cardiovascular: positive: Regular rate & rhythm Abdomen: positive: Non-tender, No organomegaly, Nml bowel sounds Skin: positive: Color nml, No rash, Warm, Dry Extremities: positive: Non-tender, Full ROM Neurologic/Psychiatric: positive: Oriented x3, CN's nml (2-12) - LABS Result Diagrams: 03/31/24 05:22 03/31/24 05:22 - SEPSIS Current Stage of Sepsis: Ruled out - FOLLOW UP Follow Up: The patient should keep her appointment next week to begin her chemoradiation at [facility]. She should follow-up with Malina Suh MD in 1 to 2 weeks. - TIME SPENT Time Spent in Discharge (Minutes): 45
[2024-04-03] MEDS ORDERED: ERGOCALCIFEROL 50,000 UNIT CAPSULE PO SCH (09:00)
--- NOTE | 2024-04-12 12:01 | ED Physician Documentation ---
ED Addendum - Addendum Addendum: 04/12/24 12:01 Late note for morning of 03/29/14 Patient was boarding in the ED morning of 03/29/14 due to no beds available that morning in the hospital and was subsequently admitted to the hospitalist service when a bed became available. Disposition: admit Condition: stable. Diagnosis: 1. COPD exacerbation 2. Respiratory failure with hypoxemia
== END 2024-03-31 14:25 | disposition home or self-care (01) | DRG 189 ==
LOC: EDUNIT# → ED 21:57 → MS2 03-29 14:12
PROVIDERS: ADMIT Physician Assistant; ATTEND Physician Assistant
DX: J18.9 Pneumonia, unspecified organism (principal); R09.02 Hypoxemia; J96.21 Acute and chronic respiratory failure with hypoxia; J90 Pleural effusion, not elsewhere classified; J44.9 Chronic obstructive pulmonary disease, unspecified; G47.30 Sleep apnea, unspecified; J44.1 Chronic obstructive pulmonary disease with (acute) exacerbation; C34.11 Malignant neoplasm of upper lobe, right bronchus or lung; I31.39 Other pericardial effusion (noninflammatory); F17.200 Nicotine dependence, unspecified, uncomplicated; J44.0 Chronic obstructive pulmonary disease with (acute) lower respiratory infection; J98.11 Atelectasis; Z99.81 Dependence on supplemental oxygen; F17.210 Nicotine dependence, cigarettes, uncomplicated; E03.9 Hypothyroidism, unspecified; E78.5 Hyperlipidemia, unspecified; M81.0 Age-related osteoporosis without current pathological fracture; E66.9 Obesity, unspecified; Z68.32 Body mass index [BMI] 32.0-32.9, adult; G47.33 Obstructive sleep apnea (adult) (pediatric); D75.838 Other thrombocytosis; Z90.2 Acquired absence of lung [part of]; R59.0 Localized enlarged lymph nodes; R91.8 Other nonspecific abnormal finding of lung field; J20.9 Acute bronchitis, unspecified; I25.2 Old myocardial infarction; Z95.5 Presence of coronary angioplasty implant and graft; I25.10 Atherosclerotic heart disease of native coronary artery without angina pectoris; I10 Essential (primary) hypertension
CPT/HCPCS: 36415; 71046; 71260; 76604; 80048; 80069; 80076; 83615; 83735; 85025; 85610; 85730; 87633; 94640; 94761; 96374; 96375; 96376; 99284; 99285; A9270; J1200; Q9967; 82945; 84157

== ENCOUNTER 2024-04-01 17:02 | Outpatient (CLI) | payer MEDICARE, OTHER | END 2024-04-01 23:59 | disposition critical access hospital (66) | LOC: EMS 17:02 | DX: R04.2 Hemoptysis (principal); Z99.81 Dependence on supplemental oxygen | CPT/HCPCS: A0425; A0429 ==

== ENCOUNTER 2024-04-01 17:09 | Emergency (ER) | payer MEDICARE, OTHER ==
--- NOTE | 2024-04-01 18:14 | XRAY Report ---
PROCEDURE: Chest 1V INDICATIONS: cough, sob TECHNIQUE: One view of the chest was acquired. COMPARISON: CT chest 03/29/2024 FINDINGS: Surgical changes and devices: Left Port-A-Cath, unchanged. Lungs and pleura: Mild increased pulmonary vascularity. Mild effusions. Mediastinum: Mediastinal contours appear normal. Heart size is enlarged. Bones and chest wall: No suspicious bony lesions. Overlying soft tissues appear unremarkable. IMPRESSION: Bilateral effusions with increased vascular suggestive of edema. Underlying areas of pneumonia and/or atelectasis cannot be excluded. Reviewed by: Radha Dickey MD on 04/01/2024 6:12 PM PDT Approved by: Radha Dickey MD on 04/01/2024 6:12 PM PDT Station ID: [id number]
[2024-04-01 18:35] LABS: BASOPHILS % (AUTO) 0.3 %; EOSINOPHILS # (AUTO) 0.1 10^3/uL (0.0-0.7); EOSINOPHILS % (AUTO) 0.6 %; HCT - HEMATOCRIT 38.1 % (37.0-47.0); LYMPHOCYTES # (AUTO) 1.9 10^3/uL (1.5-3.5); LYMPHOCYTES % (AUTO) 16.2 %; MEAN CORPUSCULAR HEMOGLOBIN 28.1 pg (27.0-31.0); MEAN CORPUSCULAR HGB CONC 31.5 g/dL (32.0-36.0); MEAN CORPUSCULAR VOLUME 89.2 fL (81.0-99.0); MEAN PLATELET VOLUME 9.9 fL (7.9-10.8); MONOCYTES # (AUTO) 1.1 10^3/uL (0.0-1.0); MONOCYTES % (AUTO) 9.3 %; NEUTROPHILS # (AUTO) 8.6 10^3/uL (1.5-6.6); NEUTROPHILS % (AUTO) 72.7 %; PLT - PLATELET COUNT 551 10^3/uL (130-450); RED BLOOD COUNT 4.27 10^6/uL (4.20-5.40); RED CELL DISTRIBUTION WIDTH 14.2 % (12.0-15.0); WHITE BLOOD COUNT 11.8 x10^3/uL (4.8-10.8)
[2024-04-01 18:37] LABS: PT - PROTHROMBIN TIME 11.3 secs (9.9-12.6)
[2024-04-01 18:47] LABS: ALBUMIN 3.5 g/dL (3.2-5.5); ALBUMIN/GLOBULIN RATIO 1.5 (1.0-2.2); BILIRUBIN,TOTAL 0.6 mg/dL (0.2-1.0); CREATININE 0.5 mg/dL (0.6-1.3); POTASSIUM 3.6 mmol/L (3.5-4.5); TOTAL PROTEIN 5.9 g/dL (6.4-8.9)
[2024-04-01 18:51] LABS: TROPONIN I HIGH SENSITIVITY 3.4 ng/L (2.3-14.8)
--- NOTE | 2024-04-01 19:35 | ED Physician Documentation ---
History of Present Illness - Stated complaint Stated Complaint: COUGHED UP BLOOD CLOTS - Chief complaint Chief Complaint: Resp - Additonal information Additional information: Patient is a 68-year-old female presenting to the emergency department after being discharged from the hospital last night. Patient was admitted for findings of pleural effusion and worsening shortness of breath. Patient has been diagnosed with recurrent lung cancer she previously had left-sided adenocarcinoma which required a resection. She has now recently been diagnosed with right lung carcinoma that she is starting chemotherapy for on April 05. Patient is on 6 L of oxygen secondary to lung carcinoma as well as pleural effusion and history of COPD. Patient is still actively smoking. She has pericardial effusion when she was admitted to the hospital but no signs of tamponade on ultrasound. Patient was discharged on steroids and Levaquin from hospital. She has been tolerating these well and has been compliant with the medications. Patient presents today to the emergency department with worsening. PD PAST MEDICAL HISTORY - Past Medical History Past Medical History: Yes Cardiovascular: Hypertension, Angina, [place] Respiratory: Asthma, COPD, Sleep apnea, CPAP use, Other Neuro: None Endocrine/Autoimmune: HyPOthyroidism GI: GERD SITE IDENTIFICATION SPECIALIST: Other : None HEENT: Chronic vision loss, Chronic sinusitis Psych: None Musculoskeletal: Osteoarthritis, Chronic back pain Derm: None - Past Surgical History Past Surgical History: Yes General: Colonoscopy, Other Ortho: Other /SITE IDENTIFICATION SPECIALIST: Hysterectomy, Other Cardiovascular: Coronary stent, Angioplasty Neuro: Other HEENT: Tonsil/Adenoidectomy - Present Medications Home Medications: Ambulatory Orders Medication Instructions Recorded Confirmed Aspirin EC [Ecotrin] 81 mg PO DAILY 12/31/20 03/29/24 Ergocalciferol [Vitamin D2] 50,000 unit PO OAW 12/31/20 03/29/24 Levothyroxine Sodium [Synthroid] 75 mcg PO DAILY 12/31/20 03/29/24 Loratadine [Claritin] 10 mg PO DAILY 12/31/20 03/29/24 Montelukast [Singulair] 10 mg PO QPM 12/31/20 03/29/24 Pantoprazole [Protonix] 40 mg PO BID 12/31/20 03/29/24 Albuterol Sulfate [Proair Hfa 1 - 2 puffs IH Q4HR PRN 07/14/21 03/29/24 Inhaler] Nitroglycerin 1 spray SL PRN PRN 07/14/21 03/29/24 Metformin HCl [Metformin ER 1,000 mg PO BID 12/16/23 03/29/24 Gastric] EPINEPHrine [Epinephrine] 0.3 mg IM PRN PRN 12/17/23 03/29/24 Ipratropium/Albuterol [Duoneb] 3 ml INH QID 12/17/23 03/29/24 Metoprolol Tartrate [Lopressor] 25 mg PO BID 12/17/23 03/29/24 Clopidogrel [Plavix] 75 mg PO DAILY #30 tab 12/20/23 03/29/24 Acetaminophen [Tylenol] 650 mg PO Q6H PRN 03/03/24 03/29/24 Alendronate [Fosamax] 70 mg PO OAW 03/03/24 03/29/24 Ibuprofen [Motrin] 1 tablet PO Q8H PRN 03/03/24 03/29/24 Atorvastatin Calcium [Lipitor] 80 mg PO HS 03/29/24 03/29/24 Benzonatate [Tessalon] 200 mg PO QID 03/29/24 03/29/24 levoFLOXacin 750 MG/150 ML 750 mg IV Q24H #5 each 03/31/24 [Levaquin 750 mg/150 ml] predniSONE [Prednisone] See Rx Instructions .ROUTE 03/31/24 .COMPLEX #39 tab Furosemide [Lasix] 20 mg PO DAILY #5 tablet 04/01/24 levoFLOXacin [Levaquin] 250 mg PO ONCE 5 Days #5 tablet 04/01/24 - Allergies Allergies/Adverse Reactions: Allergies Allergy/AdvReac Type Severity Reaction Status Date / Time hydrocodone bitartrate * Allergy Severe Rash Verified 04/01/24 17:19 [From Vicodin] iodine Allergy Severe Nausea Verified 04/01/24 17:19 Penicillins Allergy Severe Respiratory Verified 04/01/24 17:19 Sulfa (Sulfonamide Allergy Severe Respiratory Verified 04/01/24 17:19 Antibiotics) bee venom protein (honey bee) Allergy Respiratory Verified 04/01/24 17:19 - Social History Does the pt smoke?: Yes Smoking Status: Current every day smoker Does the pt drink ETOH?: Yes Does the pt have substance abuse?: No - Immunizations Immunizations are current?: Yes Immunizations: Other immun not current - POLST Patient has POLST: No POLST Status: Full Code PD ED PE NORMAL - Vitals Vital signs reviewed: Yes - General General: Alert and oriented X 3 - HEENT HEENT: Atraumatic - Neck Neck: Supple, no meningeal sign - Cardiac Cardiac: RRR, No murmur, No gallop, No rub - Respiratory Respiratory: Other (Mildy) Results - Vitals Vitals: Vital Signs - 24 hr 04/01/24 04/01/24 04/01/24 17:14 19:18 19:54 Temperature 36.0 C L 36.2 C L Heart Rate 85 77 75 Respiratory 24 22 18 Rate Blood Pressure 152/84 H 141/91 H 141/91 H O2 Saturation 94 97 94 If not protocol 4 : Oxygen Flow, liters/minute Oxygen O2 Source Nasal cannula - Labs Labs: Laboratory Tests 04/01/24 04/01/24 04/01/24 18:26 18:26 18:26 WBC 11.8 H RBC 4.27 Hgb 12.0 Hct 38.1 MCV 89.2 MCH 28.1 MCHC 31.5 L RDW 14.2 Plt Count 551 H MPV 9.9 Neut # (Auto) 8.6 H Lymph # (Auto) 1.9 Sharp # (Auto) 1.1 H Eos # (Auto) 0.1 Baso # (Auto) 0.0 Absolute Nucleated RBC 0.00 Nucleated RBC % 0.0 PT 11.3 INR 1.0 Sodium 140 Potassium 3.6 Chloride 103 Carbon Dioxide 30 Anion Gap 7.0 BUN 18 Creatinine 0.5 L Estimated GFR (MDRD) 123 Glucose 118 H Calcium 9.0 Total Bilirubin 0.6 AST 16 ALT 22 Alkaline Phosphatase 97 Troponin I High Sens 3.4 Total Protein 5.9 L Albumin 3.5 Globulin 2.4 Albumin/Globulin Ratio 1.5 PD Medical Decision Making - ED course Complexity details: reviewed old records, reviewed results, re-evaluated patient ED course: Patient is a 68-year-old female presenting to the emergency department with hemoptysis. Patient notes this happened about 10 times with very minimal small amounts of blood after being discharged yesterday from admission. Patient was admitted with shortness of breath last week. She notes she was discharged yesterday after breathing improved and she was given a course of steroids and oral antibiotics to go home with. Patient was diagnosed at the time with COPD exasperation pleural effusion pneumonia and pericardial effusion. Patient denies any chest pain no shortness of breath. She is on her maintenance oxygen of 6 L nasal cannula. Vitals stable on arrival otherwise. Decreased breath sounds on auscultation but no appreciable wheezing no significant lower leg swelling. No reproducible chest pain. Patient is on Plavix will obtain basic labs to ensure no significant drop in anemia will also obtain chest x-ray for further evaluation. Basic labs show stable hemoglobin and no worsening anemia. Coags are stable and chest x-ray shows signs of increased vascular fluid overload. Creatinine level is stable no signs of EMIL. Will start patient on short course of diuretics here in the emergency department to help with fluid overload at this time. Patient agreeable with this plan. She denies any other episodes here in the emergency department. Discussed with patient symptoms most likely secondary to cancer. If her symptoms return she should follow-up at [facility] as she would benefit from a bronchoscopy for further evaluation. Patient understands and is agreeable with this plan. Patient continues to have no persistent chest pain no shortness of breath she remains on stable oxygen here. No new findings. Patient will continue on steroids and oral antibiotics as prescribed at discharge. Patient given strict return precautions including chest pain shortness of breath dizziness lightheadedness. Low suspicion for any PE at this time as patient denies any worsening shortness of breath or chest pain at this time. No worsening lower leg swelling and no fevers or chest pain to suggest worsening pneumonia or ACS here in emergency department. EKG is stable showing no new acute findings and troponin is stable. Patient will return with any symptoms listed above. Patient agreeable with this plan. Departure - Departure Disposition: 01 Home, Self Care Clinical Impression: Acute CHF (congestive heart failure), COPD exacerbation, Hemoptysis Condition: Fair Instructions: COPD Dc, Heart Failure Dc, Pneumonia Dc Prescriptions: Furosemide [Lasix] 20 mg PO DAILY #5 tablet Comments: You were seen here in the emergency department for coughing up blood. Your workup here in the emergency department showed no new changes from your recent discharge last night. If you have any of the symptoms again you should go up to [facility] and you can be further evaluated there is you most likely need a bronchoscopy for further evaluation. If you develop any fevers chest pain or shortness of breath return to the emergency department. Forms: PCP List Discharge Date/Time: 04/01/24 20:16
[2024-04-01 19:43] VITALS: BP 141/91
[2024-04-01] MEDS: FUROSEMIDE 20 MG TABLET PO STA (20:06)
[2024-04-01 20:07] VITALS: O2SAT 94
== END 2024-04-01 20:16 | disposition home or self-care (01) ==
LOC: EDUNIT# → ED 17:09
DX: I50.9 Heart failure, unspecified (principal); J44.1 Chronic obstructive pulmonary disease with (acute) exacerbation; R04.2 Hemoptysis; C34.91 Malignant neoplasm of unspecified part of right bronchus or lung; F17.200 Nicotine dependence, unspecified, uncomplicated; Z99.81 Dependence on supplemental oxygen; Z79.01 Long term (current) use of anticoagulants
CPT/HCPCS: 36415; 71045; 80053; 84484; 85025; 85610; 93005; 99284; A9270